=== PATIENT | male | born 1980 | race Caucasian/White ===

== ENCOUNTER → 2017-07-06 11:52 | Outpatient (REF) | payer OTHER, SELFPAY ==
[2017-07-06 13:18] LABS: Amphetamine/Metha Screen,Urine Negative ng/mL (<1000); Barbiturates Screen,Urine Negative ng/mL (<200); Benzodiazepines Screen,Urine Positive ng/mL (200); Cannabinoid Screen,Urine Negative ng/mL (<50); Cocaine Screen,Urine Negative ng/g (<300); Methadone Screen,Urine Negative ng/mL (<300); Opiate Screen,Urine Negative ng/mL (<300); Phencyclidine Screen,Urine Negative ng/mL (<25)
== END ==
LOC: LAB 11:52
PROVIDERS: Visit Provider Emergency Medicine
DX: F41.9 Anxiety disorder, unspecified (principal)
CPT/HCPCS: 80305

== ENCOUNTER → 2017-10-03 10:05 | Outpatient (REF) | payer OTHER, SELFPAY ==
[2017-10-03 20:47] LABS: Amphetamine/Metha Screen,Urine Negative ng/mL (<1000); Barbiturates Screen,Urine Negative ng/mL (<200); Benzodiazepines Screen,Urine Positive ng/mL (200); Cannabinoid Screen,Urine Negative ng/mL (<50); Cocaine Screen,Urine Negative ng/g (<300); Methadone Screen,Urine Negative ng/mL (<300); Opiate Screen,Urine Negative ng/mL (<300); Phencyclidine Screen,Urine Negative ng/mL (<25)
== END ==
LOC: LAB 10:05
PROVIDERS: Visit Provider Emergency Medicine
DX: Z79.899 Other long term (current) drug therapy (principal)
CPT/HCPCS: 80305

== ENCOUNTER → 2018-01-01 09:43 | Outpatient (REF) | payer OTHER, SELFPAY ==
[2018-01-01 14:27] LABS: Amphetamine/Metha Screen,Urine Negative ng/mL (<1000); Barbiturates Screen,Urine Negative ng/mL (<200); Benzodiazepines Screen,Urine Negative ng/mL (<200); Cannabinoid Screen,Urine Negative ng/mL (<50); Cocaine Screen,Urine Negative ng/mL (<300); Methadone Screen,Urine Negative ng/mL (<300); Opiate Screen,Urine Negative ng/mL (<300); Phencyclidine Screen,Urine Negative ng/mL (<25)
== END ==
LOC: LAB 09:43
PROVIDERS: Visit Provider Emergency Medicine
DX: Z79.899 Other long term (current) drug therapy (principal)
CPT/HCPCS: 80305

== ENCOUNTER → 2018-04-01 09:03 | Outpatient (REF) | payer OTHER, SELFPAY ==
[2018-04-01 14:42] LABS: Alanine Aminotransferase 42 U/L (12-78); Albumin/Globulin Ratio 1.2 (1.1-1.8); Alkaline Phosphatase 77 U/L (46-116); Anion Gap 15.1 mEq/L (5-15); Aspartate Amino Transferase 18 U/L (15-37); Bilirubin,Total 0.8 mg/dL (0.2-1.0); Blood Urea Nitrogen 20 mg/dL (7-18); Calcium 8.9 mg/dL (8.5-10.1); Carbon Dioxide 27 mmol/L (21.0-32.0); Chloride 103 mmol/L (98-107); Chol/HDL Ratio 5.3 (1-3.5); Cholesterol 238 mg/dL (140-200); Creatinine,Serum 0.92 mg/dL (0.70-1.30); Estimated Glomerular Filt Rate 93 ml/min (>60); Free T4 (Free Thyroxine) 0.89 ng/dl (0.76-1.46); GFR (African American) 113 ML/MIN (>60); Globulin 3.3 gm/dl (1.3-3.2); Glucose 97 mg/dL (74-106); HDL Cholesterol 45 mg/dL (27-67); Potassium 4.1 mmoL/L (3.5-5.1); Sodium 141 mmol/L (136-145); Thyroid Stimulating Hormone 3.21 uIU/ml (0.358-3.740); Total Protein,Serum 7.3 gm/dL (6.4-8.2)
[2018-04-01 14:45] LABS: Triglycerides 424 mg/dL (30-200)
[2018-04-01 14:49] LABS: Amphetamine/Metha Screen,Urine Negative ng/mL (<1000); Barbiturates Screen,Urine Negative ng/mL (<200); Benzodiazepines Screen,Urine Positive ng/mL (<200); Cannabinoid Screen,Urine Positive ng/mL (<50); Cocaine Screen,Urine Negative ng/mL (<300); Methadone Screen,Urine Negative ng/mL (<300); Opiate Screen,Urine Negative ng/mL (<300); Phencyclidine Screen,Urine Negative ng/mL (<25)
[2018-04-01 14:50] LABS: Basophils # 0.1 K/mm3 (0-0.2); Basophils % 0.5 % (0.1-2.0); Eosinophils # 0.3 K/mm3 (0.0-0.4); Eosinophils % 2.9 % (0.1-12.0); Hemoglobin 14.9 g/dL (14.1-18.0); Lymphocytes # 1.5 K/mm3 (0.7-4.5); Lymphocytes % 16.8 K/mm3 (10-50); Mean Corpuscular HGB Conc 33.1 g/dL (31.8-35.4); Mean Corpuscular Hemoglobin 29.5 pg (27.0-31.2); Mean Corpuscular Volume 89.1 fl (80-94); Mean Platelet Volume 8.8 fl (7.4-10.4); Monocytes # 0.5 K/mm3 (0.1-1.0); Monocytes % 5.9 % (1.7-9.3); Neutrophils # 6.7 K/mm3 (1.8-7.8); Neutrophils % 73.8 % (37.0-80.0); Platelet Count 216 K/mm3 (142-424); Red Blood Count 5.05 M/mm3 (4.60-6.20); Red Cell Distribution Width 13.1 % (11.5-17.5); White Blood Count 9.1 K/mm3 (4.8-10.8)
[2018-04-03 11:28] LABS: Vitamin D 25 Hydroxy 26.4 ng/mL (30.0-100.0)
== END ==
LOC: LAB 09:03
PROVIDERS: Visit Provider Emergency Medicine
DX: Z79.899 Other long term (current) drug therapy (principal); F41.9 Anxiety disorder, unspecified; R53.83 Other fatigue
CPT/HCPCS: 80053; 80061; 80305; 82652; 84439; 84443; 85025

== ENCOUNTER → 2018-07-04 13:53 | Outpatient (CLI) | payer OTHER, SELFPAY ==
[2018-07-04 14:44] LABS: Amphetamine/Metha Screen,Urine Negative ng/mL (<1000); Barbiturates Screen,Urine Negative ng/mL (<200); Benzodiazepines Screen,Urine Positive ng/mL (<200); Cannabinoid Screen,Urine Positive ng/mL (<50); Cocaine Screen,Urine Negative ng/mL (<300); Methadone Screen,Urine Negative ng/mL (<300); Opiate Screen,Urine Negative ng/mL (<300); Phencyclidine Screen,Urine Negative ng/mL (<25)
== END ==
PROVIDERS: Visit Provider Emergency Medicine
DX: Z79.899 Other long term (current) drug therapy (principal)
CPT/HCPCS: 80305

== ENCOUNTER → 2018-10-01 14:04 | Outpatient (CLI) | payer OTHER, SELFPAY ==
[2018-10-01 14:41] LABS: Amphetamine/Metha Screen,Urine Negative ng/mL (<1000); Barbiturates Screen,Urine Negative ng/mL (<200); Benzodiazepines Screen,Urine Positive ng/mL (<200); Cannabinoid Screen,Urine Positive ng/mL (<50); Cocaine Screen,Urine Negative ng/mL (<300); Methadone Screen,Urine Negative ng/mL (<300); Opiate Screen,Urine Negative ng/mL (<300); Phencyclidine Screen,Urine Negative ng/mL (<25)
== END ==
PROVIDERS: Visit Provider Emergency Medicine
DX: Z79.899 Other long term (current) drug therapy (principal)
CPT/HCPCS: 80305

== ENCOUNTER → 2018-12-27 14:25 | Outpatient (CLI) | payer OTHER, SELFPAY ==
[2018-12-27 16:41] LABS: Amphetamine/Metha Screen,Urine Negative ng/mL (<1000); Barbiturates Screen,Urine Negative ng/mL (<200); Benzodiazepines Screen,Urine Positive ng/mL (<200); Cannabinoid Screen,Urine Positive ng/mL (<50); Cocaine Screen,Urine Negative ng/mL (<300); Methadone Screen,Urine Negative ng/mL (<300); Opiate Screen,Urine Negative ng/mL (<300); Phencyclidine Screen,Urine Negative ng/mL (<25)
== END ==
PROVIDERS: Visit Provider Emergency Medicine
DX: Z79.899 Other long term (current) drug therapy (principal)
CPT/HCPCS: 80305

== ENCOUNTER → 2019-03-28 13:29 | Outpatient (CLI) | payer OTHER, SELFPAY ==
[2019-03-28 13:56] LABS: Basophils % 0.6 % (0.1-2.0); Eosinophils # 0.2 K/mm3 (0.0-0.4); Eosinophils % 3.3 % (0.1-12.0); Hematocrit 46.3 % (42.0-52.0); Hemoglobin 14.5 g/dL (14.1-18.0); Lymphocytes # 1.4 K/mm3 (0.7-4.5); Lymphocytes % 23.7 % (10-50); Mean Corpuscular HGB Conc 31.4 g/dL (31.8-35.4); Mean Corpuscular Hemoglobin 28.2 pg (27.0-31.2); Mean Corpuscular Volume 89.8 fl (80-94); Mean Platelet Volume 9.1 fl (7.4-10.4); Monocytes # 0.4 K/mm3 (0.1-1.0); Monocytes % 6.9 % (1.7-9.3); Neutrophils % 65.4 % (37.0-80.0); Platelet Count 266 K/mm3 (142-424); Red Blood Count 5.16 M/mm3 (4.60-6.20); Red Cell Distribution Width 13.6 % (11.5-17.5); White Blood Count 6.1 K/mm3 (4.8-10.8)
[2019-03-28 14:45] LABS: Alanine Aminotransferase 17 U/L (12-78); Albumin Level 4.1 gm/dL (3.4-5.0); Albumin/Globulin Ratio 1.4 (1.1-1.8); Alkaline Phosphatase 66 U/L (46-116); Aspartate Amino Transferase 14 U/L (15-37); Bilirubin,Total 0.9 mg/dL (0.2-1.0); Blood Urea Nitrogen 12 mg/dL (7-18); Calcium 8.7 mg/dL (8.5-10.1); Carbon Dioxide 24 mmol/L (21.0-32.0); Chloride 105 mmol/L (98-107); Creatinine,Serum 0.93 mg/dL (0.70-1.30); Estimated Glomerular Filt Rate 91 ml/min (>60); GFR (African American) 111 ML/MIN (>60); Glucose 101 mg/dL (74-106); Lipase 126 u/L (73-393); Sodium 141 mmol/L (136-145); Total Protein,Serum 7.1 gm/dL (6.4-8.2)
[2019-03-28 17:39] LABS: Amphetamine/Metha Screen,Urine Negative ng/mL (<1000); Barbiturates Screen,Urine Negative ng/mL (<200); Benzodiazepines Screen,Urine Positive ng/mL (<200); Cannabinoid Screen,Urine Positive ng/mL (<50); Cocaine Screen,Urine Negative ng/mL (<300); Methadone Screen,Urine Negative ng/mL (<300); Opiate Screen,Urine Negative ng/mL (<300); Phencyclidine Screen,Urine Negative ng/mL (<25)
== END ==
PROVIDERS: Visit Provider Emergency Medicine
DX: R10.9 Unspecified abdominal pain (principal); Z79.899 Other long term (current) drug therapy
CPT/HCPCS: 80053; 80305; 83690; 85025

== ENCOUNTER → 2019-04-04 07:56 | Outpatient (CLI) | payer OTHER, SELFPAY ==
--- NOTE | 2019-04-04 07:59 | US_ITS ---
PROCEDURE: US GALLBLADDER CLINICAL INDICATION: abdominal pain COMPARISON: No exams were available for comparison FINDINGS: Pancreas: Unremarkable/Not well seen Liver: Unremarkable. There is appropriate direction of blood flow within a non dilated portal vein. Right kidney: Unremarkable appearing. No hydronephrosis. Gallbladder: No stones are evident. There is no gallbladder wall thickening. Common duct is normal in diameter. IMPRESSION: Negative gallbladder ultrasound. No stones evident. Dictated by: Shahid Ramirez 04/04/2019 08:41 Electronically signed by Shahid Ramirez in [place] 04/04/2019 08:41
== END ==
PROVIDERS: PCP Emergency Medicine; Visit Provider Emergency Medicine
DX: R10.9 Unspecified abdominal pain (principal)
CPT/HCPCS: 76705

== ENCOUNTER → 2019-09-12 12:52 | Outpatient (CLI) | payer MEDICAID, SELFPAY ==
[2019-09-12 18:11] LABS: Amphetamine/Metha Screen,Urine Negative ng/ml (<1000); Barbiturates Screen,Urine Negative ng/ml (<200); Benzodiazepines Screen,Urine Positive ng/ml (<200); Cannabinoid Screen,Urine Positive ng/ml (<50); Cocaine Screen,Urine Negative ng/ml (<300); Methadone Screen,Urine Negative ng/ml (<300); Opiate Screen,Urine Negative ng/ml (<300); Phencyclidine Screen,Urine Negative ng/ml (<25)
== END ==
PROVIDERS: Visit Provider Emergency Medicine
DX: Z79.899 Other long term (current) drug therapy (principal)
CPT/HCPCS: 80305

== ENCOUNTER 2020-06-02 15:55 | Emergency (ER) | payer MEDICAID, SELFPAY ==
[2020-06-02 15:56] VITALS: BP 133/97; PULSE 64; PULSE 76; RESP 16; RESP 20; TEMP 37.2; O2SAT 97; O2SAT 99; BMI 35.8
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
[2020-06-02 16:21] VITALS: BP 133/97; PULSE 64; RESP 16; TEMP 37.2; O2SAT 97
== END 2020-06-02 16:22 | disposition home or self-care (01) ==
PROVIDERS: Emergency Provider Emergency Medicine
DX: S01.01XA Laceration without foreign body of scalp, initial encounter (principal); W20.8XXA Other cause of strike by thrown, projected or falling object, initial encounter; Y92.89 Other specified places as the place of occurrence of the external cause; F41.9 Anxiety disorder, unspecified; E78.5 Hyperlipidemia, unspecified; F17.210 Nicotine dependence, cigarettes, uncomplicated; Z79.899 Other long term (current) drug therapy; F11.11 Opioid abuse, in remission
CPT/HCPCS: 12002; 99282

== ENCOUNTER → 2020-06-22 15:05 | Outpatient (CLI) | payer MEDICAID, SELFPAY ==
[2020-06-22 16:04] LABS: Basophils # 0.1 K/mm3 (0-0.2); Basophils % 0.8 % (0.1-2.0); Eosinophils # 0.3 K/mm3 (0.0-0.4); Eosinophils % 4.1 % (0.1-12.0); Hematocrit 49.8 % (42.0-52.0); Hemoglobin 16.1 g/dL (14.1-18.0); Lymphocytes # 1.7 K/mm3 (0.7-4.5); Lymphocytes % 24.6 % (10-50); Mean Corpuscular HGB Conc 32.3 g/dL (31.8-35.4); Mean Corpuscular Hemoglobin 30.9 pg (27.0-31.2); Mean Corpuscular Volume 95.5 fl (80-94); Mean Platelet Volume 9.5 fl (7.4-10.4); Monocytes # 0.4 K/mm3 (0.1-1.0); Monocytes % 6.1 % (1.7-9.3); Neutrophils # 4.5 K/mm3 (1.8-7.8); Neutrophils % 64.4 % (37.0-80.0); Platelet Count 242 K/mm3 (142-424); Red Blood Count 5.22 M/mm3 (4.60-6.20); Red Cell Distribution Width 13.7 % (11.5-17.5); White Blood Count 7.1 K/mm3 (4.8-10.8)
[2020-06-22 16:23] LABS: Chloride 106 mmol/L (98-107); Potassium 3.8 mmoL/L (3.5-5.1); Sodium 140 mmol/L (136-145)
[2020-06-22 16:26] LABS: Alanine Aminotransferase 18 U/L (12-78); Albumin Level 4.1 g/dl (3.5-5.0); Albumin/Globulin Ratio 1.5 (1.1-1.8); Alkaline Phosphatase 65 U/L (38-126); Anion Gap 9.8 mEq/L (5-15); Aspartate Amino Transferase 25 U/L (17-59); Bilirubin,Total 0.9 mg/dl (0.2-1.3); Blood Urea Nitrogen 22 mg/dl (9-20); Calcium 9.3 mg/dl (8.4-10.2); Carbon Dioxide 28 mmol/L (22.0-30.0); Chol/HDL Ratio 2.7 (1-3.5); Cholesterol 159 mg/dl (140-200); Estimated Glomerular Filt Rate 84 ml/min (>60); GFR (African American) 101 ML/MIN (>60); Globulin 2.7 g/dL (1.3-3.2); Glucose 106 mg/dl (74-100); HDL Cholesterol 60 mg/dl (40-60); Total Protein,Serum 6.8 g/dl (6.3-8.2); Triglycerides 309 mg/dl (30-150); VLDL Cholesterol 62 mg/dL (0-40)
[2020-06-22 16:39] LABS: Direct LDL Cholesterol 49.48 mg/dL (100-129)
[2020-06-22 16:44] LABS: T4 (Thyroxine) 6.9 ug/dl (5.53-11.0)
[2020-06-22 16:57] LABS: Thyroid Stimulating Hormone 3.37 uIU/mL (0.465-4.68)
[2020-06-22 17:10] LABS: 25-OH Vitamin D, Total 26.2 ng/mL (30-100)
== END ==
PROVIDERS: Visit Provider Emergency Medicine
DX: E78.5 Hyperlipidemia, unspecified (principal); E55.9 Vitamin D deficiency, unspecified; E66.9 Obesity, unspecified; R53.83 Other fatigue
CPT/HCPCS: 80053; 80061; 82306; 84436; 84443; 85025

== ENCOUNTER → 2020-09-20 14:17 | Outpatient (CLI) | payer MEDICAID, SELFPAY ==
[2020-09-20 17:23] LABS: Amphetamine/Metha Screen,Urine Negative ng/ml (<1000)
[2020-09-20 17:24] LABS: Barbiturates Screen,Urine Negative ng/ml (<200)
[2020-09-20 17:25] LABS: Benzodiazepines Screen,Urine Positive ng/ml (<200); Cannabinoid Screen,Urine Positive ng/ml (<50)
[2020-09-20 17:26] LABS: Cocaine Screen,Urine Negative ng/ml (<300)
[2020-09-20 17:27] LABS: Methadone Screen,Urine Negative ng/ml (<300)
[2020-09-20 17:28] LABS: Opiate Screen,Urine Negative ng/ml (<300); Phencyclidine Screen,Urine Negative ng/ml (<25)
== END ==
PROVIDERS: Visit Provider Emergency Medicine
DX: Z79.899 Other long term (current) drug therapy (principal)
CPT/HCPCS: 80305

== ENCOUNTER → 2020-12-13 13:56 | Outpatient (CLI) | payer MEDICAID, SELFPAY ==
[2020-12-13 15:27] LABS: Amphetamine/Metha Screen,Urine Negative ng/ml (<1000)
[2020-12-13 15:28] LABS: Barbiturates Screen,Urine Negative ng/ml (<200); Benzodiazepines Screen,Urine Positive ng/ml (<200)
[2020-12-13 15:29] LABS: Cannabinoid Screen,Urine Positive ng/ml (<50); Cocaine Screen,Urine Negative ng/ml (<300)
[2020-12-13 15:30] LABS: Methadone Screen,Urine Negative ng/ml (<300)
[2020-12-13 15:31] LABS: Opiate Screen,Urine Negative ng/ml (<300); Phencyclidine Screen,Urine Negative ng/ml (<25)
== END ==
PROVIDERS: Visit Provider Emergency Medicine
DX: Z79.899 Other long term (current) drug therapy (principal)
CPT/HCPCS: 80305

== ENCOUNTER → 2021-03-14 18:20 | Outpatient (CLI) | payer MEDICAID, SELFPAY ==
[2021-03-14 18:52] LABS: Alanine Aminotransferase 17 U/L (12-78); Albumin Level 4.2 g/dl (3.5-5.0); Albumin/Globulin Ratio 1.6 (1.1-1.8); Alkaline Phosphatase 73 U/L (38-126); Anion Gap 15.3 mEq/L (5-15); Aspartate Amino Transferase 23 U/L (17-59); Bilirubin,Total 0.5 mg/dl (0.2-1.3); Blood Urea Nitrogen 15 mg/dl (9-20); Calcium 9.1 mg/dl (8.4-10.2); Carbon Dioxide 27 mmol/L (22.0-30.0); Chloride 105 mmol/L (98-107); Chol/HDL Ratio 3.9 (1-3.5); Cholesterol 177 mg/dl (140-200); Estimated Glomerular Filt Rate 94 ml/min (>60); GFR (African American) 114 ML/MIN (>60); Globulin 2.6 g/dL (1.3-3.2); Glucose 120 mg/dl (74-100); HDL Cholesterol 45 mg/dl (40-60); Potassium 4.3 mmoL/L (3.5-5.1); Sodium 143 mmol/L (136-145); Total Protein,Serum 6.8 g/dl (6.3-8.2); Triglycerides 281 mg/dl (30-150); VLDL Cholesterol 56 mg/dL (0-40)
[2021-03-14 19:04] LABS: Direct LDL Cholesterol 78.09 mg/dL (100-129)
[2021-03-14 19:05] LABS: Basophils % 0.6 % (0.1-2.0); Eosinophils # 0.2 K/mm3 (0.0-0.4); Eosinophils % 3.8 % (0.1-12.0); Hematocrit 42.5 % (42.0-52.0); Hemoglobin 13.6 g/dL (14.1-18.0); Lymphocytes # 1.3 K/mm3 (0.7-4.5); Lymphocytes % 25.3 % (10-50); Mean Corpuscular HGB Conc 32.1 g/dL (31.8-35.4); Mean Corpuscular Hemoglobin 31.8 pg (27.0-31.2); Mean Corpuscular Volume 99.3 fl (80-94); Mean Platelet Volume 9.4 fl (7.4-10.4); Monocytes # 0.3 K/mm3 (0.1-1.0); Monocytes % 5.8 % (1.7-9.3); Neutrophils # 3.2 K/mm3 (1.8-7.8); Neutrophils % 64.4 % (37.0-80.0); Platelet Count 257 K/mm3 (142-424); Red Blood Count 4.28 M/mm3 (4.60-6.20); Red Cell Distribution Width 12.9 % (11.5-17.5)
[2021-03-14 19:09] LABS: 25-OH Vitamin D, Total 31.8 ng/mL (30-100)
[2021-03-14 19:11] LABS: Free T4 (Free Thyroxine) 1.14 ng/dl (0.78-2.19)
[2021-03-14 19:24] LABS: Thyroid Stimulating Hormone 1.87 uIU/mL (0.465-4.68)
[2021-03-14 19:28] LABS: Amphetamine/Metha Screen,Urine Negative ng/ml (<1000)
[2021-03-14 19:29] LABS: Barbiturates Screen,Urine Negative ng/ml (<200)
[2021-03-14 19:30] LABS: Benzodiazepines Screen,Urine Positive ng/ml (<200); Cannabinoid Screen,Urine Positive ng/ml (<50)
[2021-03-14 19:31] LABS: Cocaine Screen,Urine Negative ng/ml (<300)
[2021-03-14 19:32] LABS: Methadone Screen,Urine Negative ng/ml (<300); Opiate Screen,Urine Negative ng/ml (<300)
[2021-03-14 19:40] LABS: Phencyclidine Screen,Urine Negative ng/ml (<25)
[2021-03-16 06:30] LABS: Hep A Ab, IgM Negative (Negative); Hepatitis B Core Antibody IgM Negative (Negative); Hepatitis B Surface Antigen Negative (Negative); Hepatitis C Antibody <0.1 s/co ratio (0.0-0.9)
== END ==
PROVIDERS: Visit Provider Physician Assistant
DX: R53.83 Other fatigue (principal); F41.9 Anxiety disorder, unspecified; Z68.32 Body mass index [BMI] 32.0-32.9, adult; Z79.899 Other long term (current) drug therapy; Z29.9 Encounter for prophylactic measures, unspecified
CPT/HCPCS: 80053; 80061; 80074; 80305; 82306; 84439; 84443; 85025

== ENCOUNTER → 2021-05-11 16:25 | Outpatient (CLI) | payer MEDICAID, SELFPAY ==
[2021-05-11 16:56] LABS: Amphetamine/Metha Screen,Urine Negative ng/ml (<1000)
[2021-05-11 16:57] LABS: Barbiturates Screen,Urine Negative ng/ml (<200)
[2021-05-11 16:58] LABS: Benzodiazepines Screen,Urine Positive ng/ml (<200); Cannabinoid Screen,Urine Positive ng/ml (<50)
[2021-05-11 16:59] LABS: Cocaine Screen,Urine Negative ng/ml (<300)
[2021-05-11 17:00] LABS: Methadone Screen,Urine Negative ng/ml (<300); Opiate Screen,Urine Negative ng/ml (<300)
[2021-05-11 17:01] LABS: Phencyclidine Screen,Urine Negative ng/ml (<25)
== END ==
PROVIDERS: Visit Provider Emergency Medicine
DX: Z79.899 Other long term (current) drug therapy (principal)
CPT/HCPCS: 80305

== ENCOUNTER → 2021-08-10 16:00 | Outpatient (CLI) | payer MEDICAID, SELFPAY ==
[2021-08-10 15:23] LABS: Amphetamine/Metha Screen,Urine Negative ng/ml (<1000)
[2021-08-10 15:30] LABS: Barbiturates Screen,Urine Negative ng/ml (<200); Benzodiazepines Screen,Urine Positive ng/ml (<200)
[2021-08-10 15:31] LABS: Cannabinoid Screen,Urine Positive ng/ml (<50); Cocaine Screen,Urine Negative ng/ml (<300)
[2021-08-10 15:32] LABS: Methadone Screen,Urine Negative ng/ml (<300)
[2021-08-10 15:33] LABS: Opiate Screen,Urine Negative ng/ml (<300); Phencyclidine Screen,Urine Negative ng/ml (<25)
== END ==
PROVIDERS: Visit Provider Emergency Medicine
DX: Z79.899 Other long term (current) drug therapy (principal)
CPT/HCPCS: 80305

== ENCOUNTER → 2021-11-01 22:07 | Outpatient (CLI) | payer MEDICAID, SELFPAY ==
[2021-11-01 14:16] LABS: Amphetamine/Metha Screen,Urine Negative ng/ml (<1000)
[2021-11-01 14:17] LABS: Barbiturates Screen,Urine Negative ng/ml (<200)
[2021-11-01 14:18] LABS: Benzodiazepines Screen,Urine Positive ng/ml (<200)
[2021-11-01 14:19] LABS: Cannabinoid Screen,Urine Positive ng/ml (<50)
[2021-11-01 14:20] LABS: Cocaine Screen,Urine Negative ng/ml (<300)
[2021-11-01 14:21] LABS: Methadone Screen,Urine Negative ng/ml (<300); Opiate Screen,Urine Negative ng/ml (<300)
[2021-11-01 14:23] LABS: Phencyclidine Screen,Urine Negative ng/ml (<25)
== END ==
PROVIDERS: Visit Provider Emergency Medicine
DX: Z79.899 Other long term (current) drug therapy (principal)
CPT/HCPCS: 80305

== ENCOUNTER → 2021-11-15 10:53 | Outpatient (CLI) | payer MEDICAID, SELFPAY | PROVIDERS: PCP Emergency Medicine; Visit Provider Emergency Medicine | DX: R07.9 Chest pain, unspecified (principal) | CPT/HCPCS: 93306 ==

== ENCOUNTER → 2022-05-24 09:33 | Outpatient (CLI) | payer MEDICAID, SELFPAY ==
[2022-05-24 14:31] LABS: Amphetamine/Metha Screen,Urine Negative ng/ml (<1000)
[2022-05-24 14:32] LABS: Barbiturates Screen,Urine Negative ng/ml (<200)
[2022-05-24 14:33] LABS: Benzodiazepines Screen,Urine Positive ng/ml (<200); Cannabinoid Screen,Urine Positive ng/ml (<50)
[2022-05-24 14:34] LABS: Cocaine Screen,Urine Negative ng/ml (<300); Methadone Screen,Urine Negative ng/ml (<300)
[2022-05-24 14:35] LABS: Opiate Screen,Urine Negative ng/ml (<300)
[2022-05-24 14:36] LABS: Phencyclidine Screen,Urine Negative ng/ml (<25)
== END ==
PROVIDERS: PCP Emergency Medicine; Visit Provider Emergency Medicine
DX: F41.9 Anxiety disorder, unspecified (principal)
CPT/HCPCS: 80305

== ENCOUNTER → 2022-12-04 17:07 | Outpatient (CLI) | payer MEDICAID, SELFPAY ==
--- NOTE | 2022-12-04 17:08 | MR_ITS ---
PROCEDURE INFORMATION: Exam: MR Right Lower Extremity Joint Without Contrast; Ankle Exam date and time: 12/04/2022 5:31 PM Age: 42 years old Clinical indication: Pain; Ankle; Right; Additional info: Ankle pain. Pain worse on lateral side. TECHNIQUE: Imaging protocol: Magnetic resonance imaging of the right lower extremity without contrast. Exam focused on the ankle. COMPARISON: No relevant prior studies available. FINDINGS: Bones/joints: A focus of full-thickness cartilage loss involving the anterior mid tibial plafond measures approximately 0.4 x 0.4 cm and is associated with subchondral edema. A moderate amount of fluid is also present in the flexor hallucis longus tendon sheath proximal to the level of the posterior process of the talus with an appearance indeterminate for impingement. No tear. Minimal fluid is present in the ankle and subtalar joints. Full-thickness cartilage loss also involves an 8 mm region of the subtalar joint posterior facet along the calcaneal side of the joint near the angle of Gissane (series 9/image 16). Tiny subchondral cysts along the posteromedial aspect of the subtalar joint suggest additional foci of full-thickness cartilage loss that are beyond the resolution of the study. Increased T2 signal within the posterior calcaneal tuberosity superiorly and in the immediately adjacent soft tissues is seen on series 6 insular series 9 but cannot be definitively confirmed on additional sequences being indeterminate for inflammation in this region versus artifact. There is no convincing corresponding abnormal signal on T1 weighted sequences for confirmation. There is no acute fracture or dislocation. No aggressive bone lesions are present. Small, chronic-appearing osteochondral bodies adjacent to the medial and lateral malleoli are consistent with remote unhealed avulsion fracture fragments and/or small foci of heterotopic ossification. LIGAMENTS: Distal tibiofibular syndesmosis: Unremarkable. No tear. Anterior talofibular ligament: The anterior talofibular ligament is not visible, consistent with a full thickness tear. Posterior talofibular ligament: The posterior talofibular ligament is thickened and has intermediate signal intensity, consistent with prior low grade injury. Calcaneofibular ligament: The calcaneofibular ligament is thin, consistent with an intermediate grade partial thickness tear. Deltoid ligament complex: Heterogeneity of the deep deltoid ligament complex is consistent with prior low to intermediate-grade partial-thickness tearing. The superficial component of the deltoid ligament is intact. TENDONS: Flexor tendons of foot: A moderate amount of fluid is present at the Master knot of Alist[place] where the flexor hallucis longus tendon crosses the flexor digitorum longus tendon. Tibialis posterior tendon: Mild tenosynovitis involves the tibialis posterior tendon. Peroneal tendons: Unremarkable as visualized. Extensor tendons of foot: Unremarkable as visualized. Tibialis anterior tendon: Unremarkable. Achilles tendon: There is no tear or significant tendinosis involving the Achilles tendon. Tarsal canal (Sinus tarsi): Abnormal signal intensity material nearly obliterates the fat in the sinus tarsi. The cervical ligament is poorly defined and may be partially torn. The appearance suggests sinus tarsi syndrome. A small ganglion or synovial cyst decompresses laterally from the sinus tarsi region. Tarsal tunnel: Unremarkable. Soft tissues: A trace amount of fluid is present in the retrocalcaneal bursa. Plantar fascia: Mild thickening of the central band of the proximal plantar fascia has no signif
== END ==
PROVIDERS: PCP Emergency Medicine; Visit Provider Emergency Medicine
DX: M25.571 Pain in right ankle and joints of right foot (principal)
CPT/HCPCS: 73721

== ENCOUNTER 2023-01-22 20:21 | Emergency (ER) | payer MEDICAID, SELFPAY ==
[2023-01-22 20:22] VITALS: BP 135/67; PULSE 89; RESP 19; TEMP 36.8; O2SAT 97; BMI 29.2
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
[2023-01-22 21:27] VITALS: BP 148/62; PULSE 68; RESP 19; TEMP 36.8; O2SAT 98
== END 2023-01-22 21:27 | disposition home or self-care (01) ==
PROVIDERS: Emergency Provider Emergency Medicine; PCP Emergency Medicine
DX: S81.812A Laceration without foreign body, left lower leg, initial encounter (principal); F41.9 Anxiety disorder, unspecified; W26.0XXA Contact with knife, initial encounter
CPT/HCPCS: 12002; 90715; 96372; 99283

== ENCOUNTER 2023-02-09 09:30 | Outpatient (RCR) | payer MEDICAID, SELFPAY ==
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
== END 2023-02-09 10:45 | disposition home or self-care (01) ==
LOC: PT 09:30
PROVIDERS: Visit Provider Nurse Practitioner Family
DX: M25.571 Pain in right ankle and joints of right foot (principal); T25.011A Burn of unspecified degree of right ankle, initial encounter
CPT/HCPCS: 97163; 97597; 97598

== ENCOUNTER 2023-03-18 18:05 | Emergency (ER) | payer MEDICAID, SELFPAY ==
[2023-03-18 18:06] VITALS: BP 127/80; PULSE 54; RESP 18; TEMP 37; O2SAT 99; BMI 28.4
[2023-03-18 18:30] VITALS: BP 130/79; PULSE 52; RESP 16; O2SAT 99
--- NOTE | 2023-03-18 18:44 | CT_ITS ---
PROCEDURE INFORMATION: Exam: CT Head Without Contrast Exam date and time: 03/18/2023 6:54 PM Age: 43 years old Clinical indication: Pain; Headache; Additional info: VYAS TECHNIQUE: Imaging protocol: Computed tomography of the head without contrast. Radiation optimization: All CT scans at this facility use at least one of these dose optimization techniques: automated exposure control; mA and/or kV adjustment per patient size (includes targeted exams where dose is matched to clinical indication); or iterative reconstruction. REPORTING DATA: Count of CT and Cardiac NM exams in prior 12 months: This patient has received 0 known CTs and 0 known cardiac nuclear medicine studies in the 12 months prior to the current study. COMPARISON: No relevant prior studies available. FINDINGS: Brain: Normal. No hemorrhage. Unremarkable white matter. No mass effect. Cerebral ventricles: No ventriculomegaly. Paranasal sinuses: Visualized sinuses are unremarkable. No fluid levels. Mastoid air cells: Visualized mastoid air cells are well aerated. Bones/joints: Unremarkable. No acute fracture. Soft tissues: Unremarkable. IMPRESSION: No acute intracranial abnormality.
--- NOTE | 2023-03-18 18:45 | HMH.EDGENADL ---
Discharge Plan Disposition Patient Disposition: Home, Self-Care Prescriptions Prescriptions: No Action alprazolam 1 mg tablet 1 mg PO 5XDAY Qty: 150 2RF silver sulfadiazine [Silvadene] 1 % cream 1 applic topical BID Qty: 50 2RF Rx Instructions: apply a 1.5 mm thickness ondansetron HCl 4 mg tablet See Rx Instructions .ROUTE .COMPLEX Qty: 30 3RF Dose Instruction: TAKE ONE TABLET BY MOUTH EVERY 8 HOURS NEEDED FOR NAUSEA AND VOMITING Rx Instructions: TAKE ONE TABLET BY MOUTH EVERY 8 HOURS NEEDED FOR NAUSEA AND VOMITING Referrals Follow up/Referrals: Lester Joradn MD [Primary Care Provider] - See instructions Activity Restrictions/Add. Instructions Additional Instructions/Restrictions: No neurovascular emergency was identified today please return with any focal neurologic symptoms such as weakness changes in coordination vision high fevers neck stiffness or other concerns. Your CAT scan was unremarkable today. Clinical Impressions Clinical Impression: Headache, Minor head injury Discharge ED Provider: Michael Thomas General Adult HPI General Chief complaint: Headache Stated complaint: VYAS, weak Time Seen by Provider: 03/18/23 18:36 Mode of Arrival: Wheelchair Source of Information: Patient Limitations: No Limitations Description of Symptoms (Recalled from ER Triage Doc. by RN): Presents to ED with c/o of headache x 2 days along with shakiness and weakness. Patient reports taking Excedrin @ 1500, ibuprofen @ 1700, and 2 5mg Xanax's today with no relief. Patient reports taking saboxone as well. Patient states he has not been able to eat a whole lot lately. History of Present Illness HPI narrative: Patient is a 43-year-old male here with headache that began Sunday has been slowly worsening since that time no thunderclap component to this no fever neck stiffness or any neurologic complaints. States he did get hit in the face by a pit bull but he had symptoms of pain that started several hours after that. No other trauma that he is aware of. Has not changed any of his benzodiazepine Suboxone or alcohol consumption lately. Denies any focal neurologic deficits including numbness weakness tingling changes in coordination or vision. He does have a little bit of photophobia. Related Data Previous Rx's Medication Instructions Recorded silver sulfadiazine 1 % topical 1 applic topical BID #50 grams 01/23/23 cream (Silvadene) alprazolam 1 mg tablet 1 mg PO 5XDAY anxiety #150 tabs 02/06/23 ondansetron HCl 4 mg tablet See Rx Instructions .Route 03/06/23 .COMPLEX #30 tabs Allergies Allergy/AdvReac Type Severity Reaction Status Date / Time No Known Allergies Allergy Verified 03/18/23 19:27 [facility] Disclaimer: The information contained in this section may have been updated after the patient was seen, as this information can be updated by other users. Medical History Anxiety Frederick reviewed online Social History Smoking Status: Current every day smoker tobacco type: cigarettes packs per day: 1 alcohol intake: never substance use type: former substance user, marijuana, heroin and opiates current occupational status: other Travel in the last 8 weeks: None household members: family housing: house ROS Obtained: Yes All systems reviewed & no additional complaints except as documented Physical Exam General General appearance: alert Head Head exam: normocephalic (No vieira sign raccoon eyes hemotympanums or depressible fracture) Respiratory Respiratory exam: Present normal lung sounds bilaterally; Absent respiratory distress Cardiovascular Cardiovascular exam: Present regular rate; Absent tachycardia Neurological Exam Neurological exam: Present alert, oriented X3, CN II-XII intact and normal gait; Absent motor sensory deficit Expanded Neurolog
[2023-03-18 20:26] VITALS: BP 127/71; PULSE 49; RESP 18; TEMP 37; O2SAT 100
== END 2023-03-18 20:28 | disposition home or self-care (01) ==
PROVIDERS: Emergency Provider Student in an Organized Health Care Education/Training Program; PCP Emergency Medicine
DX: R51.9 Headache, unspecified (principal); S09.8XXA Other specified injuries of head, initial encounter; R53.1 Weakness; W54.1XXA Struck by dog, initial encounter; F41.9 Anxiety disorder, unspecified; F17.210 Nicotine dependence, cigarettes, uncomplicated
CPT/HCPCS: 70450; 96361; 96374; 96375; 99284; J0131

== ENCOUNTER 2023-07-31 12:52 | Outpatient (CLI) | payer MEDICAID, SELFPAY ==
[2023-07-31 12:59] LABS: Basophils % 0.5 % (0.1-2.0); Eosinophils # 0.1 K/mm3 (0.0-0.4); Hematocrit 36.5 % (42.0-52.0); Hemoglobin 14.8 g/dL (14.1-18.0); Lymphocytes # 0.9 K/mm3 (0.7-4.5); Lymphocytes % 15.3 % (10-50); Mean Corpuscular Hemoglobin 39.7 pg (27.0-31.2); Mean Corpuscular Volume 97.6 fl (80-94); Mean Platelet Volume 9.3 fl (7.4-10.4); Monocytes # 0.3 K/mm3 (0.1-1.0); Monocytes % 5.4 % (1.7-9.3); Neutrophils # 4.6 K/mm3 (1.8-7.8); Platelet Count 219 K/mm3 (142-424); Red Blood Count 3.74 M/mm3 (4.60-6.20); Red Cell Distribution Width 13.5 % (11.5-17.5); White Blood Count 5.9 K/mm3 (4.8-10.8)
[2023-07-31 13:02] LABS: Mean Corpuscular HGB Conc 40.7 g/dL (31.8-35.4)
[2023-07-31 13:07] LABS: Alanine Aminotransferase 29 U/L (12-78); Albumin Level 4.3 g/dl (3.5-5.0); Albumin/Globulin Ratio 1.8 (1.1-1.8); Alkaline Phosphatase 119 U/L (38-126); Aspartate Amino Transferase 60 U/L (17-59); Bilirubin,Total 1.8 mg/dl (0.2-1.3); Blood Urea Nitrogen 11 mg/dl (9-20); Calcium 9.2 mg/dl (8.4-10.2); Carbon Dioxide 24 mmol/L (22.0-30.0); Chloride 106 mmol/L (98-107); Cholesterol 205 mg/dl (140-200); Estimated Glomerular Filt Rate 107 ml/min (>60); GFR (African American) 129 ML/MIN (>60); Globulin 2.4 g/dL (1.3-3.2); Glucose 71 mg/dl (74-100); Sodium 140 mmol/L (136-145); Total Protein,Serum 6.7 g/dl (6.3-8.2); Triglycerides 153 mg/dl (30-150); VLDL Cholesterol 31 mg/dL (0-40)
[2023-07-31 13:15] LABS: Chol/HDL Ratio 2.1 (1-3.5); HDL Cholesterol 97 mg/dl (40-60)
[2023-07-31 13:18] LABS: Direct LDL Cholesterol 80.62 mg/dL (100-129)
[2023-07-31 13:34] LABS: 25-OH Vitamin D, Total < 12.8 ng/mL (30-100)
[2023-07-31 13:39] LABS: Prostate Specific Ag Screen 0.2 ng/ml (0.0-4.0)
[2023-08-01 10:03] LABS: HBsAg Screen Negative (Negative); HCV Ab Non Reactive (Non Reactive); Hep A Ab, IGM Negative (Negative); Hep B Core Ab, IgM Negative (Negative)
[2023-08-01 12:44] LABS: HIV Screen 4th Generation wRfx Non Reactive (Non Reactive)
== END 2023-07-31 23:59 ==
LOC: LAB.DROPOF 12:52
PROVIDERS: PCP Internal Medicine; Visit Provider Internal Medicine
DX: F19.11 Other psychoactive substance abuse, in remission (principal); F43.10 Post-traumatic stress disorder, unspecified; F41.9 Anxiety disorder, unspecified; F32.9 Major depressive disorder, single episode, unspecified; E55.9 Vitamin D deficiency, unspecified; E78.5 Hyperlipidemia, unspecified; R53.83 Other fatigue; Z12.5 Encounter for screening for malignant neoplasm of prostate; Z11.4 Encounter for screening for human immunodeficiency virus [HIV]; Z79.899 Other long term (current) drug therapy
CPT/HCPCS: 80053; 80061; 80074; 82306; 84443; 85025; 86703; G0103; G0432

== ENCOUNTER 2023-08-13 08:34 | Outpatient (CLI) | payer MEDICAID, SELFPAY ==
[2023-08-13 11:25] LABS: Vitamin B12 238 pg/mL (239-931)
== END 2023-08-13 23:59 ==
LOC: LAB 08:35
PROVIDERS: PCP Internal Medicine; Visit Provider Internal Medicine
DX: D51.0 Vitamin B12 deficiency anemia due to intrinsic factor deficiency (principal)
CPT/HCPCS: 36415; 82607

== ENCOUNTER 2023-08-15 12:01 | Emergency (ER) | payer MEDICAID, SELFPAY ==
--- NOTE | 2023-08-15 11:59 | ECG_ITS ---
APPROVED REPORT Exam: Resting ECG HR:82 bpm ECG Measurements Heart Rate 82 AXES WY 124 P 26 QRSd 101 QRS 72 QT 364 T 26 QTc 403 Conclusion SINUS RHYTHM NORMAL ECG UNCONFIRMED REPORT Electronically signed by : Gurjit Onofre MD 08/15/2023 20:57:25
[2023-08-15 12:01] VITALS: BP 115/59; PULSE 80; RESP 15; TEMP 37.2; O2SAT 97; BMI 27.2
[2023-08-15 12:08] VITALS: PULSE 82
[2023-08-15 12:08] LABS: Coronavirus 19, PCR Not Detected (NotDetected); Influenza A, PCR Not Detected (NotDetected)
--- NOTE | 2023-08-15 12:08 | XR_ITS ---
FINAL REPORT CLINICAL HISTORY: cp chest congestion, body aches, heavy breathing. symptoms ongoing since sunday. FINDINGS: SINGLE-VIEW CHEST The heart size is normal. The mediastinum is normal. The lungs are clear. There is no pneumothorax. IMPRESSION: No acute cardiopulmonary process. Reviewed, Interpreted and Dictated by Mp Quevedo III, MD Transcribed by Arina Owens Authenticated and [facility]
--- NOTE | 2023-08-15 12:11 | PC.NURSE ---
DR CHENEY AT BEDSIDE
--- NOTE | 2023-08-15 12:14 | PC.NURSE ---
XR AT BEDSIDE
[2023-08-15 12:15] LABS: Basophils % 0.4 % (0.1-2.0); Eosinophils # 0.1 K/mm3 (0.0-0.4); Eosinophils % 0.9 % (0.1-12.0); Hematocrit 46.1 % (42.0-52.0); Lymphocytes # 0.8 K/mm3 (0.7-4.5); Lymphocytes % 14.5 % (10-50); Mean Corpuscular HGB Conc 34.6 g/dL (31.8-35.4); Mean Corpuscular Hemoglobin 32.3 pg (27.0-31.2); Mean Corpuscular Volume 93.3 fl (80-94); Mean Platelet Volume 8.9 fl (7.4-10.4); Monocytes # 0.3 K/mm3 (0.1-1.0); Monocytes % 6.1 % (1.7-9.3); Neutrophils # 4.4 K/mm3 (1.8-7.8); Platelet Count 122 K/mm3 (142-424); Red Blood Count 4.94 M/mm3 (4.60-6.20); Red Cell Distribution Width 13.1 % (11.5-17.5); White Blood Count 5.6 K/mm3 (4.8-10.8)
--- NOTE | 2023-08-15 12:20 | ED_ITS ---
Discharge Plan Disposition Patient Disposition: Home, Self-Care Condition: Good Prescriptions Prescriptions: New ondansetron 4 mg tablet,disintegrating 4 mg PO Q6 PRN (Reason: nausea and vomiting) 4 Days Qty: 16 0RF No Action cholecalciferol (vitamin D3) 125 mcg (5,000 unit) capsule 125 mcg PO DAILY 60 Days Qty: 60 3RF vitamin B complex [B Complex-Vitamin B12] Tablet 1 tab PO DAILY Qty: 30 2RF amitriptyline 25 mg tablet 25 mg PO HS 30 Days Qty: 30 2RF alprazolam 1 mg tablet 1 mg PO 5XDAY PRN (Reason: anxiety) Qty: 150 1RF ondansetron HCl 4 mg tablet See Rx Instructions .ROUTE .COMPLEX Qty: 30 2RF Dose Instruction: TAKE ONE TABLET BY MOUTH EVERY 8 HOURS NEEDED FOR NAUSEA AND VOMITING Rx Instructions: TAKE ONE TABLET BY MOUTH EVERY 8 HOURS NEEDED FOR NAUSEA AND VOMITING mecobalamin (vitamin B12) 5,000 mcg tablet,chewable 5,000 mcg PO DAILY 90 Days Qty: 90 4RF Referrals Follow up/Referrals: Provider,Referral, MD [Referring] - See instructions Activity Restrictions/Add. Instructions Additional Instructions/Restrictions: You have been evaluated in the ED for your complaints. You may follow-up with your PCP in the next 3 to 5 days. Please return to ED for any new or worsening symptoms. Please continue to treat your symptoms at home with Tylenol and Motrin as needed. I have also written for Zofran to assist with your nausea. Please drink plenty of fluids. Clinical Impressions Clinical Impression: Influenza B, Chest pain, Shortness of breath, Diarrhea Discharge ED Provider: Hal Mata General Adult HPI General Chief complaint: Chest Pain Stated complaint: cp Time Seen by Provider: 08/15/23 12:06 Mode of Arrival: Ambulatory Source of Information: Patient Limitations: No Limitations Description of Symptoms (Recalled from ER Triage Doc. by RN): pt presents to ED with c/o chest congestion, body aches, heavy breathing. symptoms ongoing since sunday. History of Present Illness HPI narrative: 43-year-old male with past medical history significant for anemia, PTSD, HLD, depression, anxiety, presents today for evaluation concerning central chest pain with associated shortness of breath that has been present over the past 2 days intermittently. States he has also had a significant nonproductive cough as well as subjective fevers. Has also had N/V and nonbloody diarrhea as well as myalgias. Reports decreased p.o. intake. Denies any abdominal pain, dysuria, hematuria. No further complaints. Related Data Previous Rx's Medication Instructions Recorded vitamin B complex (B 1 tab PO DAILY #30 tabs 05/04/23 Complex-Vitamin B12 tablet) alprazolam 1 mg tablet 1 mg PO 5XDAY PRN anxiety #150 tabs 07/31/23 amitriptyline 25 mg tablet 25 mg PO HS 30 days #30 tabs 07/31/23 cholecalciferol (vitamin D3) 125 125 mcg PO DAILY 60 days #60 caps 08/03/23 mcg (5,000 unit) capsule ondansetron HCl 4 mg tablet See Rx Instructions .Route 08/07/23 .COMPLEX #30 tabs mecobalamin (vitamin B12) 5,000 5,000 mcg PO DAILY 90 days #90 tabs 08/14/23 mcg chewable tablet ondansetron 4 mg disintegrating 4 mg PO Q6 PRN nausea and vomiting 08/15/23 tablet 4 days #16 tabs Allergies Allergy/AdvReac Type Severity Reaction Status Date / Time No Known Allergies Allergy Verified 07/31/23 09:18 [facility] Disclaimer: The information contained in this section may have been updated after the patient was seen, as this information can be updated by other users. Medical History Anxiety Frederick reviewed online Social History Smoking Status: Current every day smoker tobacco type: cigarettes packs per day: 1 alcohol intake: never substance use type: former substance user, marijuana, heroin and opiates current occupational status: other Travel in the last 8 weeks: None household members: family housing: house ROS Obtained: Yes All systems reviewed & no additional complaints except as documented Physical Exam General General appearance: alert and in no apparent distress Head Head exam: atraumatic and normocephalic Eye Eye exam: Present normal appearance, PERRL and EOMI ENT ENT exam: Present normal oropharynx and mucous membranes moist Neck Neck exam: Present full ROM; Absent meningismus Respiratory Respiratory exam: Absent respiratory distress, wheezes, stridor or accessory muscle use Cardiovascular Cardiovascular exam: Present normal rhythm Abdominal Exam Abdominal exam: Present soft; Absent distention, tenderness, guarding, rebound or rigidity Extremities Exam Extremities exam: Present normal inspection and full ROM; Absent edema Neurological Exam Neurological exam: Present alert, oriented X3 and CN II-XII intact; Absent motor sensory deficit Psychiatric Psychiatric exam: Present normal affect and normal mood Skin Skin exam: Present warm and dry Medical Decision Making Medical Records Medical records reviewed: Yes I reviewed the patient's medical records. Frederick Inquiry Pt receiving controlled substance: No Frederick was queried for this patient: No Vital Signs: 08/15/23 12:01 08/15/23 12:08 08/15/23 13:00 Temperature 99.0 F Temperature Source Oral Pulse Rate 82 63 Pulse Rate [Left Radial] 80 Respiratory Rate 15 Blood Pressure 125/72 Blood Pressure [Right Arm] 115/59 L Blood Pressure Mean 81 Blood Pressure Mean [Right Arm] 77 02 Sat by Pulse Oximetry 97 93 L Oxygen Delivery Method Room Air Room Air 08/15/23 13:30 08/15/23 14:01 08/15/23 14:26 Temperature 98.0 F Temperature Source Pulse Rate 70 76 62 Pulse Rate [Left Radial] Respiratory Rate 16 Blood Pressure 121/70 119/77 119/77 Blood Pressure [Right Arm] Blood Pressure Mean Blood Pressure Mean [Right Arm] 02 Sat by Pulse Oximetry 94 L 90 L Oxygen Delivery Method Room Air Room Air Lab Data Lab Results 08/15/23 12:00: WBC 5.6, RBC 4.94, Hgb 16.0, Hct 46.1, MCV 93.3, MCH 32.3 H, MCHC 34.6, RDW 13.1, Plt Count 122 L, MPV 8.9, Neut % (Auto) 78.0, Lymph % (Auto) 14.5, Shannon % (Auto) 6.1, Eos % (Auto) 0.9, Baso % (Auto) 0.4, Neut # (Auto) 4.4, Lymph # (Auto) 0.8, Shannon # (Auto) 0.3, Eos # (Auto) 0.1, Baso # (Auto) 0.0, Sodium 136, Potassium 3.8, Chloride 98, Carbon Dioxide 35 H, Anion Gap 6.8, BUN 8 L, Creatinine 0.90, Estimated Creat Clear 159, Estimated GFR 93, Est GFR ( Amer) 113, Glucose 118 H, Calcium 8.7, Total Bilirubin 0.5, AST 60 H, ALT 39, Alkaline Phosphatase 103, Troponin I < 0.01, Total Protein 7.1, Albumin 4.2, Globulin 2.9, Albumin/Globulin Ratio 1.4, SARS-CoV-2 (PCR) Not detected, Influenza A Untype (PCR) Not detected, Influenza Type B (PCR) Detected A 08/15/23 12:00 08/15/23 12:00 Orders (Tests/Meds): ED MEDICATIONS Discontinued Medications Generic Name Dose Route Start Last Admin Trade Name Freq PRN Reason Stop Dose Admin Lactated Ringer's 500 mls @ 999 mls/hr 08/15/23 12:21 08/15/23 12:28 Lactated Ringer's 1000 Ml Bag IV 08/15/23 12:51 999 mls/hr .Q31M ONE Administration Ketorolac Tromethamine 15 mg 08/15/23 12:21 08/15/23 12:28 Ketorolac 30mg/Ml Vial IM 08/15/23 12:22 15 mg ONCE ONE Administration Ondansetron HCl 4 mg 08/15/23 12:21 08/15/23 12:28 Ondansetron 4mg Odt SL 08/15/23 12:22 4 mg ONCE ONE Administration Sodium Chloride 10 ml 08/15/23 12:08 Sodium Chloride 0.9% 10ml Flush Syringe IV 09/14/23 12:07 NEEDED PRN Maintain IV Site ORDERS Category Date Time Status XR chest portable Stat Exams 08/15/23 12:08 Completed Complete Blood Count Auto Diff Stat Lab 08/15/23 12:00 Completed Comprehensive Metabolic Panel Stat Lab 08/15/23 12:00 Completed Rapid PCR Covid and Flu A/B Stat Lab 08/15/23 12:00 Completed Troponin I Stat Lab 08/15/23 12:00 Completed ECG initial Besson Routine Y 08/15/23 11:59 Completed ECG Data Tracing #1: I reviewed this ECG and interpreted as documented below: EKG personally interpreted by me. Normal sinus rhythm with a rate of [address] elevations are noted. Medical Decision Narrative: 43-year-old male with past medical history significant for anemia, PTSD, HLD, depression, anxiety, presents today for evaluation concerning central chest pain with associated shortness of breath that has been present over the past 2 days intermittently. States he has also had a significant nonproductive cough as well as subjective fevers. Has also had N/V and nonbloody diarrhea as well as myalgias. Reports decreased p.o. intake. On assessment, the patient was hemodynamically stable and in no acute distress. Afebrile. Appropriate oxygen saturation on room air. Chest is clear to auscultation bilaterally. Abdomen soft nondistended and nontender to palpation. He did have somewhat of a lethargic appearance. Other physical exam findings unremarkable. Differential diagnoses include not limited to ACS, pleural effusion, pneumonia, gastritis, gastroenteritis, COVID, influenza, other viral URI, among others. No elevation in WBC on CBC at 5.6. CMP with AST of 60. Otherwise nonactionable. He is influenza B positive on swab. His initial troponin was less than 0.01. Chest x-ray was informally interpreted by me and did not show any acute cardiopulmonary disease processes. Radiology report confirmed. On reassessment patient remains hemodynamically stable and in no acute distress. States that he feels improved at this time after Toradol, fluids and Zofran. Discussed with patient ED work-up and results and current plan to discharge. Patient noted that he did not want to Tamiflu. Provided with return to ED precautions and instructions concerning PCP follow-up. Patient verbalized understanding and agreement with plan. Subsequently discharged hemodynamically stable and in no acute distress. Critical Care Critical Care Time Critical Care Time: No
[2023-08-15 12:21] LABS: Chloride 98 mmol/L (98-107); Sodium 136 mmol/L (136-145)
[2023-08-15 12:22] LABS: Potassium 3.8 mmoL/L (3.5-5.1)
[2023-08-15 12:24] LABS: Alanine Aminotransferase 39 U/L (12-78); Alkaline Phosphatase 103 U/L (38-126); Aspartate Amino Transferase 60 U/L (17-59); Bilirubin,Total 0.5 mg/dl (0.2-1.3); Blood Urea Nitrogen 8 mg/dl (9-20); Creatinine Clearance Estimated 159 mL/min (50-200); Estimated Glomerular Filt Rate 93 ml/min (>60); GFR (African American) 113 ML/MIN (>60)
[2023-08-15 12:25] LABS: Albumin Level 4.2 g/dl (3.5-5.0); Albumin/Globulin Ratio 1.4 (1.1-1.8); Anion Gap 6.8 mEq/L (5-15); Calcium 8.7 mg/dl (8.4-10.2); Carbon Dioxide 35 mmol/L (22.0-30.0); Globulin 2.9 g/dL (1.3-3.2); Glucose 118 mg/dl (74-100); Total Protein,Serum 7.1 g/dl (6.3-8.2)
[2023-08-15] MEDS: KETOROLAC 30MG/ML VIAL 15 MG IM (12:28)
[2023-08-15] MEDS: LACTATED RINGERS 1000ML 500 ML 999 ML IV (12:28)
[2023-08-15] MEDS: ONDANSETRON 4MG ODT 4 MG SL (12:28)
[2023-08-15 12:41] LABS: Troponin I < 0.01 ng/ml (0.00-0.034)
[2023-08-15 13:00] VITALS: BP 125/72; PULSE 63; O2SAT 93
[2023-08-15 13:02] LABS: Influenza B, PCR Detected (NotDetected)
[2023-08-15 13:30] VITALS: BP 121/70; PULSE 70; O2SAT 94
[2023-08-15 14:01] VITALS: BP 119/77; PULSE 76; O2SAT 90
[2023-08-15 14:26] VITALS: BP 119/77; PULSE 62; RESP 16; TEMP 36.7
== END 2023-08-15 14:27 | disposition home or self-care (01) ==
PROVIDERS: Emergency Provider Emergency Medicine; PCP Internal Medicine
DX: R07.89 Other chest pain (principal); J10.1 Influenza due to other identified influenza virus with other respiratory manifestations; R06.02 Shortness of breath; R19.7 Diarrhea, unspecified; F17.210 Nicotine dependence, cigarettes, uncomplicated
CPT/HCPCS: 71045; 80053; 84484; 85025; 87636; 93005; 96372; 99284

== ENCOUNTER 2024-07-24 13:52 | Emergency (ER) | payer MEDICAID, SELFPAY ==
[2024-07-24 14:13] VITALS: BMI 26.6
--- NOTE | 2024-07-24 14:14 | XR_ITS ---
PROCEDURE INFORMATION: Exam: XR Left Femur Exam date and time: 07/24/2024 2:19 PM Age: 44 years old Clinical indication: Pain; Knee; Left; Additional info: Injury; Fell TECHNIQUE: Imaging protocol: Radiologic exam of the left femur. Views: 2 views. COMPARISON: CR XR KNEE LT 3V 24/07/2024 14:18 FINDINGS: Bones/joints: No acute fracture or dislocation. Small-moderate suprapatellar effusion. Mild osteoarthritis of the lateral compartment of the knee. Soft tissues: Unremarkable. IMPRESSION: 1. No acute fracture or dislocation. 2. Small-moderate suprapatellar effusion. 3. Mild osteoarthritis of the lateral compartment of the knee.
--- NOTE | 2024-07-24 14:14 | XR_ITS ---
PROCEDURE INFORMATION: Exam: XR Left Knee Exam date and time: 07/24/2024 2:18 PM Age: 44 years old Clinical indication: Pain; Knee; Left; Additional info: Injury; Fell TECHNIQUE: Imaging protocol: Radiologic exam of the left knee. Views: 3 views. COMPARISON: No relevant prior studies available. FINDINGS: Bones/joints: No acute fracture or dislocation. Small-moderate suprapatellar effusion. Mild osteoarthritis of the lateral compartment. Soft tissues: Normal. IMPRESSION: 1. No acute fracture or dislocation. 2. Small-moderate suprapatellar effusion. 3. Mild osteoarthritis of the lateral compartment.
[2024-07-24 14:15] VITALS: BP 122/77; PULSE 79; RESP 16; TEMP 36.8; O2SAT 97; BMI 26.6
--- NOTE | 2024-07-24 15:25 | ED_ITS ---
Discharge Plan Disposition Patient Disposition: Home, Self-Care Prescriptions Prescriptions: No Action cholecalciferol (vitamin D3) 125 mcg (5,000 unit) capsule 125 mcg PO DAILY 60 Days Qty: 60 3RF buprenorphine-naloxone [Suboxone] 2-0.5 mg film 1 film buccal DAILY Rx Instructions: place 1 strip/tab under (each) side of tongue alprazolam 1 mg tablet 1 mg PO QID 30 Days Qty: 120 0RF dextroamphetamine-amphetamine [Adderall] 20 mg tablet 20 mg PO DAILY 30 Days Qty: 30 0RF amitriptyline 50 mg tablet 50 mg PO HS Qty: 60 2RF cyanocobalamin (vitamin B-12) 1,000 mcg tablet, sublingual See Rx Instructions .ROUTE .COMPLEX Qty: 30 0RF Dose Instruction: DISSOLVE 1 TABLET ON THE TONGUE ONCE A DAY Rx Instructions: DISSOLVE 1 TABLET ON THE TONGUE ONCE A DAY ondansetron HCl 4 mg tablet See Rx Instructions .ROUTE .COMPLEX Qty: 30 0RF Dose Instruction: TAKE ONE TABLET BY MOUTH EVERY 8 HOURS NEEDED FOR NAUSEA AND VOMITING Rx Instructions: TAKE ONE TABLET BY MOUTH EVERY 8 HOURS NEEDED FOR NAUSEA AND VOMITING Referrals Follow up/Referrals: Gurjit Resendez MD [Primary Care Provider] - See instructions Tutu Babb DO [Staff Physician] - See instructions Activity Restrictions/Add. Instructions Additional Instructions/Restrictions: Call your family doctor to establish care for this visit to the emergency department and schedule follow-up within 48 hours to ensure improvement. If you have any worsening of your condition or any other concerning signs or symptoms, return to the emergency department or your primary care doctor for further evaluation. Take Tylenol 1000 mg every 6 hours (4 times daily) as needed with food and water to prevent GI upset and kidney damage. Clinical Impressions Clinical Impression: Acute knee pain Qualifiers: Laterality: left Qualified Code(s): M25.562 - Pain in left knee Patellar fracture Qualifiers: Encounter type: initial encounter Fracture type: closed Fracture morphology: longitudinal Fracture alignment: nondisplaced Laterality: left Qualified Code(s): S82.025A - Nondisplaced longitudinal fracture of left patella, initial encounter for closed fracture Print Language Print Language: Hungarian Discharge ED Provider: Moris Naranjo General Adult [facility] General Chief complaint: Extremity Injury, Lower Stated complaint: L knee pain Time Seen by Provider: 07/24/24 15:23 Mode of Arrival: Ambulatory Source of Information: Patient Limitations: No Limitations Description of Symptoms (Recalled from ER Triage Doc. by RN): pt states about a week ago he fell on ice and injured his L knee. pt also reports that after that he was stepping into the tractor when he twisted his L knee. pt reports his pain is 10/10, pain radiates proximal to his mid femur, aching and keeping him up at night. History of Present Illness HPI narrative: Please note that above description of symptoms, in this electronic medical record under categorization of recalled from ER triage doctor by RN are reflective of an initial nursing assessment, however, is not reflective of my full history and physical exam that was personally taken and clarified. Consequentially, this preceding description of symptoms, which may include the patient's categorized chief complaint in the EMR, do not reflect my personal clinical impression, and the ultimate description of history of present illness and patient stated complaints should be deferred to this section of the note. Unless stated otherwise or congruent with this section of the note, additional signs, symptoms, or incongruence should be interpreted as inaccurate with my clinical impression. Related Data Home Medications ?Medication ?Instructions ?Recorded ?Confirmed buprenorphine 2 mg-naloxone 0.5 mg 1 film buccal DAILY 12/20/23 06/27/24 sublingual film (Suboxone) Previous Rx's ?Medication ?Instructions ?Recorded cholecalciferol (vitamin D3) 125 125 mcg PO DAILY 60 days #60 caps 08/03/23 mcg (5,000 unit) capsule amitriptyline 50 mg tablet 50 mg PO HS #60 tabs 05/15/24 alprazolam 1 mg tablet 1 mg PO QID anxiety 30 days #120 06/27/24 tabs cyanocobalamin (vitamin B-12) See Rx Instructions .Route 06/27/24 1,000 mcg sublingual tablet .COMPLEX #30 tabs dextroamphetamine-amphetamine 20 20 mg PO DAILY 30 days #30 tabs 06/27/24 mg tablet (Adderall) ondansetron HCl 4 mg tablet See Rx Instructions .Route 06/27/24 .COMPLEX #30 tabs Allergies Allergy/AdvReac Type Severity Reaction Status Date / Time NSAIDS (Non-Steroidal Allergy Intermediate Other Verified 07/24/24 14:39 Anti-Inflamma [facility] Disclaimer: The information contained in this section may have been updated after the patient was seen, as this information can be updated by other users. Medical History (Updated 07/24/24 @ 16:21 by Moris Naranjo MD) Polysubstance use disorder Chronic pain Right foot pain Anxiety Social History Smoking Status: Never smoker alcohol intake: never substance use type: former substance user, marijuana, heroin and opiates current occupational status: other Travel in the last 8 weeks: None household members: family housing: house Have you lived/traveled outside [place] in past 30 days?: No Contact w/someone who lives/traveled outside [place] past 30 days?: No Exposure to someone with infectious disease in past 14 days?: No Do you have a fever (greater than 100.4 F or 38 C)?: No Have you tested positive for COVID-19: No Exposed to someone with COVID-19 in past 14 days?: No Do you have a sore throat?: No Do you have a cough?: No Do you have any weakness?: No Do you have any diarrhea?: No Are you experiencing any unusual bleeding?: No Do you have any muscle aches/pain?: No Do you have any abdominal pain?: No Are you experiencing loss of taste or smell?: No Other Medical History Have you received the Flu Vaccine for this season: No Have you received the Pneumonia Vaccine: No ROS Obtained: Yes All systems reviewed & no additional complaints except as documented Physical Exam General General appearance: alert Head Head exam: atraumatic and normocephalic Eye Eye exam: Present normal appearance, PERRL and EOMI Neck Neck exam: Present normal inspection, full ROM and trachea midline Respiratory Respiratory exam: Absent respiratory distress, wheezes, stridor, accessory muscle use or prolonged expiratory phase Cardiovascular Cardiovascular exam: Present other (Pulses equal symmetric in upper and lower extremities) Abdominal Exam Abdominal exam: Present soft; Absent distention, tenderness or pulsatile mass Extremities Exam Extremities exam: Present edema and other (Per MDM) Neurological Exam Neurological exam: Present alert, oriented X3 and CN II-XII intact; Absent motor sensory deficit Skin Skin exam: Present warm and dry; Absent diaphoresis or erythema Medical Decision Making Medical Records Medical records reviewed: Yes I reviewed the patient's medical records. Screening: Per USPSTF and CDC recommendations, given the prevalence of disease in our region, it is our hospital?s policy to screen for HIV and viral Hepatitis for all patients aged 18 and over and those with ongoing risk factors. Frederick Inquiry Pt receiving controlled substance: No Frederick was queried for this patient: No Vital Signs: 07/24/24 14:15 Temperature 98.2 F Temperature Source Oral Pulse Rate [Left] 79 Respiratory Rate 16 Blood Pressure [Right Arm] 122/77 Blood Pressure Mean [Right Arm] 92 Blood Pressure Source [Right Arm] Automatic Cuff Blood Pressure Position [Right Arm] Sitting 02 Sat by Pulse Oximetry 97 Oxygen Delivery Method Room Air Orders (Tests/Meds): ORDERS Category Date Time Status CT knee LT wo con Stat Cat Scan 07/24/24 15:37 Taken XR femur LT 2V Stat Exams 07/24/24 14:14 Completed XR knee LT 3V Stat Exams 07/24/24 14:14 Completed Medical Decision Narrative: 44-year-old male presenting with left knee pain. Patient states that he slipped on the ice a couple days prior to this and landed straight on his kneecap. Had huge knee swelling, that has since gotten better. States that he stepped off the tractor, twisted his knee as it fell into a hole couple days prior to this and the combination of the 2 is left his knee swollen and tender. Has not noticed anything that makes any better, but he can bear weight on it. Moderate in intensity, does not radiate. History obtained the patient. On arrival, he is very well-appearing. He has an obvious knee effusion, tenderness about the patella. No joint space tenderness. No posterior tenderness. Structurally intact, neurovascularly intact. Differential includes fracture, sprain, strain, soft tissue injury, among others. X-rays obtained, these were negative on independent interpretation. Given patient has significant proximal tibial pain and effusion, CT Noncon was ordered. On independent TURP Tatian, he has a late ral patellar fracture, but no other acute intraarticular abnormality. Because patient at baseline without signs or symptoms of clinical decompensation, deemed appropriate for discharge. Results were relayed to patient who voiced understanding and were agreeable to outpatient management and follow up. I discussed my clinical impression with patient and answered all questions. At this time, the evidence for any other entities in the differential is insufficient to warrant any further testing or ED observation. This was explained as well. Advisory was given that persistent or worsening symptoms require further evaluation. I confirmed the understanding of this discussion. Cloth Burler disclaimer Much of this encounter note is an electronic supervisor fabrication spoken language to printed text. Electronic supervisor fabrication of the spoken language may permit errors. Although I have reviewed the note, some errors may still exist. Critical Care Critical Care Time Critical Care Time: No
--- NOTE | 2024-07-24 15:37 | CT_ITS ---
PROCEDURE INFORMATION: Exam: CT Left Lower Extremity, Knee Exam date and time: 07/24/2024 3:57 PM Age: 44 years old Clinical indication: Injury or trauma; Other: Pain after fall; Additional info: Tibial plateau pain TECHNIQUE: Imaging protocol: CT of the left lower extremity without contrast was performed. Exam focused on the knee. Radiation optimization: All CT scans at this facility use at least one of these dose optimization techniques: automated exposure control; mA and/or kV adjustment per patient size (includes targeted exams where dose is matched to clinical indication); or iterative reconstruction. COMPARISON: CR XR KNEE LT 3V 24/07/2024 14:18 FINDINGS: Bones/joints: Acute sagittally oriented fracture through the lateral aspect of the patella. Small to moderate suprapatellar effusion. Mild osteoarthrosis of the lateral compartment of the knee. Soft tissues: Normal. IMPRESSION: 1. Acute sagittally oriented fracture through the lateral aspect of the patella. 2. Small to moderate suprapatellar effusion. 3. Mild osteoarthrosis of the lateral compartment of the knee.
[2024-07-24 16:34] VITALS: BP 118/72; PULSE 74; RESP 16; TEMP 36.6
== END 2024-07-24 16:37 | disposition home or self-care (01) ==
PROVIDERS: Emergency Provider Emergency Medicine; PCP Family Medicine
DX: M25.562 Pain in left knee (principal); S82.025A Nondisplaced longitudinal fracture of left patella, initial encounter for closed fracture; W00.0XXA Fall on same level due to ice and snow, initial encounter; Y93.89 Activity, other specified
CPT/HCPCS: 73552; 73562; 73700; 99284

== ENCOUNTER 2024-11-16 21:20 | Emergency (ER) | payer MEDICAID, SELFPAY ==
[2024-11-16 21:38] VITALS: BP 185/100; PULSE 105; RESP 16; TEMP 36.7; O2SAT 97; BMI 28.4
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
[2024-11-16 21:42] VITALS: BP 185/100; PULSE 105; RESP 16; TEMP 36.7; O2SAT 97
== END 2024-11-16 21:46 ==
PROVIDERS: Emergency Provider Emergency Medicine; PCP Family Medicine
DX: F41.9 Anxiety disorder, unspecified (principal); V47.5XXA Car driver injured in collision with fixed or stationary object in traffic accident, initial encounter; Y92.410 Unspecified street and highway as the place of occurrence of the external cause
CPT/HCPCS: 99281

== ENCOUNTER 2025-02-21 11:31 | Inpatient (IN) | payer MEDICAID, SELFPAY ==
[2025-02-21] VITALS (7 sets, daily range): BP systolic 108–148; BP diastolic 56–82; PULSE 86–99; RESP 13–22; TEMP 36.7–36.8; O2SAT 89–99; BMI 28.8
--- NOTE | 2025-02-21 11:36 | ECG_ITS ---
APPROVED REPORT Exam: Resting ECG HR:102 bpm ECG Measurements Heart Rate 102 AXES VA 143 P 40 QRSd 88 QRS 59 QT 322 T 26 QTc 380 Conclusion SINUS TACHYCARDIA ABNORMAL RHYTHM ECG Electronically signed by : LUCÍA IVORY, 02/22/2025 07:26:36
--- OUTSIDE RECORDS SUMMARY | 2025-02-21 11:36 | XMS_ITS | Clinical Summary ---
Author Organization [facility] Address [address] [place] [address] Care Team Providers Care Cold Storage Superintendent Name Role Phone Pcp, No Primary Care Provider Unavailabl e Allergies Active Allergy Reactions Criticality Noted Date Comments Acetaminophen GI bleeding High 11/21/2024 Ibuprofen GI bleeding High 11/21/2024 Promethazine Anxiety Low 11/21/2024 Medications naloxone (Narcan) 4 mg/0.1 mL nasal spray 1. Give 1 spray in nostril for no/slow breathing or cannot wake after opioid use 2. Call 911 3. Repeat in other nostril if symptoms continue 1 each 5 Active naloxone (Narcan) 4 mg/0.1 mL nasal spray 1. Give 1 spray in nostril for no/slow breathing or cannot wake after opioid use 2. Call 911 3. Repeat in other nostril if symptoms continue Call 911. Give 4 mg (1 spray) into one nostril. Repeat every 2-3 minutes as needed, alternating nostrils, until medical assistance arrives. 1 each 5 11/22/19 26 Active amphetamine-dex troamphetamine XR (Adderall XR) 20 MG 24 hr capsule Take 1 capsule by mouth every morning. 5 Active Melatonin 10 MG capsule Take 1 capsule by mouth nightly. Active diphenhydrAMINE (Benadryl) 25 MG capsule Take by mouth at night as needed for sleep. Active Vitamin D3 125 MCG (5000 UT) capsule Take 1 capsule by mouth daily. Active B-12 [address] 1 tablet under the tongue daily. Active amitriptyline (Elavil) 50 MG tablet Take 1 tablet by mouth nightly for 14 days. 14 tablet Active cyclobenzaprine (Flexeril) 5 MG tablet Take 1 tablet by mouth 3 times a day as needed for muscle spasms (back pain). 30 tablet Active Active Problems Problem Noted Date Diagnosed Date Alcohol use 11/20/2024 Encounters Date Type Department Care Team Description 11/22/2024 Travel 11/20/2024 1:26 PM EDT - 11/22/2024 1:51 PM EDT Hospital Encounter SUJATHA ARELLANO [address] [facility] [address] [place] [address] Jovi Maradiaga MD Labrada, Diana, MD Oo, Yadana, MD Voss, Gareth J, MD Alcohol use (Primary Dx) Discharge Disposition: Home or Self Care from Last 3 Months Social History Tobacco Use Types Packs/Day Years Used Date Smoking Tobacco: Former Cigarettes Smokeless Tobacco: Never Tobacco Cessation:Counseling Given: No Alcohol Use Standard Drinks/Week Comments Yes 14 (1 standard drink = 0.6 oz pu re alcohol) vignesh AUDIT-C Answer Date Recorded Q1: How often do you have a drink containing alc ohol? 2-4 times a month 11/22/2024 Q2: How many drinks containi ng alcohol do you have on a typical day when you are drinking? 1 or 2 11/22/2024 Q3: How often do you have si x or more drinks on one occasion? Never 11/22/2024 CAGE ASSESSMENT Answer Date Recorded Cage unable to access Not on file 11/22/2024 Cage max number of drinks Not on file 2024 Cage Beverages a week Not on file 11/22/2024 Have you ever felt you should CUT down on your d rinking? 1 11/22/2024 Have you been ANNOYED by people criticizing your drinking? 1 11/22/2024 Have you felt GUILTY about your drinking? 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 1 11/22/2024 CAGE Questionnaire Score 4 025 Sex and Gender Information Value Date Recorded Sex Assigned at Not on file Legal Sex Male 7:43 PM EDT Gender Identity Male 11/26/2024 8:13 AM EDT Sexual Orientation Straight 11/26/2024 8: 13 AM EDT Last Filed Vital Signs Vital Sign Reading Time Taken Comments Blood Pressure 138/89 11/22/2024 7:46 AM EDT Pulse 55 11/22/2024 7:46 AM EDT Temperature 36.4 C (97.6 F) 11/22/2024 7:46 AM EDT Respiratory Rate 14 11/22/2024 4:16 AM EDT Oxygen Saturation 99% 11/22/2024 7:46 AM EDT Inhaled Oxygen Concentration - - Weight 118 kg (260 lb 12.9 oz) 11/22/2024 6:36 A M EDT Height 195.6 cm (6' 5 ) 11/22/2024 6:36 AM EDT Body Mass Index 30.93 11/22/2024 6:36 AM EDT Plan of Treatment Health Maintenance Due Date Last Done Comments [facility]-Depression Screening 1982 [facility]-/Child/Adol SDOH Screenings 1982 [id number] Vaccine (#1) 1987 [facility]-Varicella Vaccines (1 of 2 - 13+ 2-dose series) 1995 [facility]- SDOH Screenings 2000 [facility]-Adult SDOH Screenings 2000 [facility]-Hepatitis B Vaccines (1 of 3 - 19+ 3-dose series) 2001 [facility]-Pneumococcal Vaccine: Pediatrics (0 to 5 Years) and At-Risk Patients (6 to 49 Years) (1 of 2 - PCV) 2001 HPV Vaccines (1 - 3-dose SCD M series) 2009 [facility]-Influenza Vaccine (#1) 2025 [facility]-DTaP,Tdap,and Td Vaccine s (2 - Td or Tdap) 10/10/2026 10/10/2016 [facility]-Zoster Vaccines (1 of 2) 2032 [facility]-HIV Screening Completed 11/20/2024 [facility]-Hepatitis C Screening Completed 11/20/2024 [facility]-Obesity Intervention Completed 11/20/2024 [facility]-HIB Vaccines Aged Out No longer e ligible based on patient's age to complete this topic [facility]-Hepatitis A Vaccines Aged Out No longer eligible based on patient's age to complete this topic [facility]-IPV Vaccines Aged Out No longer e ligible based on patient's age to complete this topic [facility]-Rotavirus Vaccines Aged Out No lo nger eligible based on patient's age to complete this topic Procedures Procedure Name Priority Date/Time Associated Diagnosis Comments PHOSPHORUS, PLASMA Routine 11/22/2024 2: 29 AM EDT MAGNESIUM, PLASMA Routine 11/22/2024 2:2 9 AM EDT BASIC METABOLIC PANEL, PLASMA Routine 11/22/2024 2:29 AM EDT CBC W/O DIFFERENTIAL Routine 11/22/2024 2:29 AM EDT OXYGEN THERAPY STAT 11/21/2024 8:00 AM EDT PHOSPHORUS, PLASMA Routine 11/21/2024 3: 19 AM EDT MAGNESIUM, PLASMA Routine 11/21/2024 3:1 9 AM EDT COMPREHENSIVE METABOLIC PANEL, PLASMA Routine 11/21/2024 3:19 AM EDT CBC WITH AUTO DIFFERENTIAL Routine 11/21/2024 3:19 AM EDT HEPATITIS C ANTIBODY - ED W/REFLEX TO HCV QUANT PCR Routine 11/20/2024 2:11 PM EDT ED HIV 1/2 ANTIBODY/ANTIGEN SCREEN WITH REFLEX TO HIV I/II DIFFERENTIATION Routine 11/20/2024 2:11 PM EDT from Last 3 Months or Most Recently Relevant to Health Maintenance Results * (ABNORMAL) CBC W/O Differential (11/22/2024 2:29 AM EDT) WBC Count 4.53 3.70 - 10.30 10*3/uL LAB HEMATOLOGY METHOD 11/22/2024 2:35 AM EDT [facility] RBC Count 4.02(L) 4.60 - 6.10 10*6/uL LAB HEMATOLOGY METHOD 11/22/2024 2:35 AM EDT [facility] HGB 12.7(L) 13.7 - 17.5 g/dL LAB HEMATOLOGY METHOD 11/22/2024 2:35 AM EDT [facility] HCT 38.2(L) 40.0 - 51.0 % LAB HEMATOLOGY METHOD 11/22/2024 2:35 AM EDT [facility] Platelet Count 161 155 - 369 10*3/uL LAB HEMATOLOGY METHOD 11/22/2024 2:35 AM EDT [facility] MCV 95 79 - 98 fL LAB HEMATOLOGY METHOD 11/22/2024 2:35 AM EDT [facility] MCH 31.6 26.0 - 32.0 pg LAB HEMATOLOGY METHOD 11/22/2024 2:35 AM EDT [facility] MCHC 33.2 30.7 - 35.5 g/dL LAB HEMATOLOGY METHOD 11/22/2024 2:35 AM EDT [facility] RDW 13.7 11.5 - 14.5 % LAB HEMATOLOGY METHOD 11/22/2024 2:35 AM EDT [facility] MPV 9.1 8.8 - 12.5 fL LAB HEMATOLOGY METHOD 11/22/2024 2:35 AM EDT [facility] nRBC 0.0 <=0.0 per 100 WBCs LAB HEMATOLOGY METHOD 11/22/2024 2:35 AM EDT [facility] Blood Venous blood specimen / Unknown Venipuncture / Unknown 11/22/2024 2:29 AM EDT 11/22/2024 2:33 AM EDT us Satish Isabel MD LAB BLOOD ORDERABLES Final Resu lt [facility] [address] [place] [address] * Phosphorus, Plasma (11/22/2024 2:29 AM EDT) Only the most recent of2 resultswithin the time period is included. Phosphorus, Plasma 3.9 2.5 - 4.5 mg/dL 11/22/2024 3:21 AM EDT [facility] Blood Venous blood specimen / Unknown Venipuncture / Unknown 11/22/2024 2:29 AM EDT 11/22/2024 2:51 AM EDT Satish Isabel MD LAB BLOOD ORDERABLES Final Resu lt Performing Organization Address [facility] Co de Phone Number [facility] [address] [place] [address] * Magnesium, Plasma (11/22/2024 2:29 AM EDT) Only the most recent of2 resultswithin the time period is included. Magnesium, Plasma 2.1 1.9 - 2.4 mg/dL 11/22/2024 3:21 AM EDT [facility] Blood Venous blood specimen / Unknown Venipuncture / Unknown 11/22/2024 2:29 AM EDT 11/22/2024 2:51 AM EDT Satish Isabel MD LAB BLOOD ORDERABLES Final Resu lt Performing Organization Address [facility] Co de Phone Number [facility] [address] [place] [address] * (ABNORMAL) Basic metabolic panel (11/22/2024 2:29 AM EDT) Glucose, Plasma 92 74 - 99 mg/dL 11/22/2024 3:21 AM EDT [facility] BUN, Plasma 15 7 - 21 mg/dL 11/22/2024 3:21 AM EDT [facility] Creatinine, Plasma 0.82 0.70 - 1.20 mg/dL 11/22/2024 3:21 AM EDT [facility] BUN/Creatinine Ratio 18 11/22/2024 3:21 AM EDT [facility] Sodium, Plasma 143 136 - 145 mmol/L 11/22/2024 3:21 AM EDT [facility] Potassium, Plasma 3.2(L) 3.6 - 4.9 mmol/L 11/22/2024 3:21 AM EDT [facility] Chloride, Plasma 108(H) 97 - 107 mmol/L 11/22/2024 3:21 AM EDT [facility] CO2, Plasma 24 22 - 29 mmol/L 11/22/2024 3:21 AM EDT [facility] Anion Gap 11 6 - 16 mmol/L 11/22/2024 3:21 AM EDT [facility] Total Calcium, Plasma 8.6(L) 8.9 - 10.2 mg/dL 11/22/2024 3:21 AM EDT [facility] eGFRcr 112.5 mL/min/1.7 3m*2 11/22/2024 3:21 AM EDT [facility] Comment:Reported eGFRcr in m L/min/1.73m2 is based the CKD-EPI 2020 equation that does not use a race coefficient. Blood Venous blood specimen / Unknown Venipuncture / Unknown 11/22/2024 2:29 AM EDT 11/22/2024 2:51 AM EDT us Satish Isabel MD LAB BLOOD ORDERABLES Final Resu lt [facility] [address] [place] [address] * (ABNORMAL) CBC and Differential (11/21/2024 3:19 AM EDT) WBC Count 6.55 3.70 - 10.30 10*3/uL LAB HEMATOLOGY METHOD 11/21/2024 3:26 AM EDT [facility] RBC Count 4.22(L) 4.60 - 6.10 10*6/uL LAB HEMATOLOGY METHOD 11/21/2024 3:26 AM EDT [facility] HGB 13.4(L) 13.7 - 17.5 g/dL LAB HEMATOLOGY METHOD 11/21/2024 3:26 AM EDT [facility] HCT 39.4(L) 40.0 - 51.0 % LAB HEMATOLOGY METHOD 11/21/2024 3:26 AM EDT [facility] Platelet Count 163 155 - 369 10*3/uL LAB HEMATOLOGY METHOD 11/21/2024 3:26 AM EDT [facility] MCV 93 79 - 98 fL LAB HEMATOLOGY METHOD 11/21/2024 3:26 AM EDT [facility] MCH 31.8 26.0 - 32.0 pg LAB HEMATOLOGY METHOD 11/21/2024 3:26 AM EDT [facility] MCHC 34.0 30.7 - 35.5 g/dL LAB HEMATOLOGY METHOD 11/21/2024 3:26 AM EDT [facility] RDW 13.8 11.5 - 14.5 % LAB HEMATOLOGY METHOD 11/21/2024 3:26 AM EDT [facility] MPV 9.1 8.8 - 12.5 fL LAB HEMATOLOGY METHOD 11/21/2024 3:26 AM EDT [facility] nRBC 0.0 <=0.0 per 100 WBCs LAB HEMATOLOGY METHOD 11/21/2024 3:26 AM EDT [facility] Differential Type Automated LAB HEMATOLOGY METHOD 11/21/2024 3:26 AM EDT [facility] Neutrophils % 65 % LAB HEMATOLOGY METHOD 11/21/2024 3:26 AM EDT [facility] Lymphocytes % 24 % LAB HEMATOLOGY METHOD 11/21/2024 3:26 AM EDT [facility] Monocytes % 8 % LAB HEMATOLOGY METHOD 11/21/2024 3:26 AM EDT [facility] Eosinophils % 2 % LAB HEMATOLOGY METHOD 11/21/2024 3:26 AM EDT [facility] Basophils % 1 % LAB HEMATOLOGY METHOD 11/21/2024 3:26 AM EDT [facility] Immature Granulocytes % 0 % LAB HEMATOLOGY METHOD 11/21/2024 3:26 AM EDT [facility] Neutrophils Absolute 4.28 1.60 - 6.10 10*3/uL LAB HEMATOLOGY METHOD 11/21/2024 3:26 AM EDT [facility] Lymphocytes Absolute 1.57 1.20 - 3.90 10*3/uL LAB HEMATOLOGY METHOD 11/21/2024 3:26 AM EDT [facility] Monocytes Absolute 0.54 0.30 - 0.90 10*3/uL LAB HEMATOLOGY METHOD 11/21/2024 3:26 AM EDT [facility] Eosinophils Absolute 0.10 0.00 - 0.50 10*3/uL LAB HEMATOLOGY METHOD 11/21/2024 3:26 AM EDT [facility] Basophils Absolute 0.05 0.00 - 0.10 10*3/uL LAB HEMATOLOGY METHOD 11/21/2024 3:26 AM EDT [facility] Immature Granulocytes Absolute 0.01 0.00 - 0.06 10*3/uL LAB HEMATOLOGY METHOD 11/21/2024 3:26 AM EDT [facility] Blood Venous blood specimen / Unknown Venipuncture / Unknown 11/21/2024 3:19 AM EDT 11/21/2024 3:24 AM EDT Narrative [facility] - 11/21/2024 3:26 AM EDT Therapeutic decision making should be based on absolute values, rather than percentages. us Marek Holly MD LAB BLOOD ORDERABLES Final Resul t [facility] [address] [place] [address] * (ABNORMAL) Comprehensive metabolic panel (11/21/2024 3:19 AM EDT) Glucose, Plasma 120(H) 74 - 99 mg/dL 11/21/2024 3:58 AM EDT [facility] BUN, Plasma 10 7 - 21 mg/dL 11/21/2024 3:58 AM EDT [facility] Creatinine, Plasma 0.93 0.70 - 1.20 mg/dL 11/21/2024 3:58 AM EDT [facility] BUN/Creatinine Ratio 11 11/21/2024 3:58 AM EDT [facility] Sodium, Plasma 143 136 - 145 mmol/L 11/21/2024 3:58 AM EDT [facility] Potassium, Plasma 4.1 3.6 - 4.9 mmol/L 11/21/2024 3:58 AM EDT [facility] Comment:Hemolyzed, result ma y be falsely increased. Chloride, Plasma 108(H) 97 - 107 mmol/L 11/21/2024 3:58 AM EDT [facility] CO2, Plasma 22 22 - 29 mmol/L 11/21/2024 3:58 AM EDT [facility] Anion Gap 13 6 - 16 mmol/L 11/21/2024 3:58 AM EDT [facility] Total Calcium, Plasma 8.6(L) 8.9 - 10.2 mg/dL 11/21/2024 3:58 AM EDT [facility] Total Protein 6.4 6.3 - 7.9 g/dL 11/21/2024 3:58 AM EDT [facility] Albumin, Plasma 4.1 3.5 - 5.2 g/dL 11/21/2024 3:58 AM EDT [facility] AST, Plasma 41 10 - 50 U/L 11/21/2024 3:58 AM EDT [facility] Comment:Hemolyzed, result ma y be falsely increased. ALT, Plasma 21 10 - 50 U/L 11/21/2024 3:58 AM EDT [facility] Alkaline Phosphatase, Plasma 79 40 - 115 U/L 11/21/2024 3:58 AM EDT [facility] Total Bilirubin, Plasma 0.8 0.2 - 1.1 mg/dL 11/21/2024 3:58 AM EDT [facility] eGFRcr 105.1 mL/min/1.7 3m*2 11/21/2024 3:58 AM EDT [facility] Comment:Reported eGFRcr in m L/min/1.73m2 is based the CKD-EPI 2020 equation that does not use a race coefficient. Blood Venous blood specimen / Unknown Venipuncture / Unknown 11/21/2024 3:19 AM EDT 11/21/2024 3:24 AM EDT us Marek Holly MD LAB BLOOD ORDERABLES Final Resul t [facility] [address] [place] [address] * ED HIV 1/2 Antibody/Antigen Screen w/Reflex to HIV 1/2 Differentiation (11/20/2024 2:11 PM EDT) HIV 1 & 2 Antibody/Antigen Screen Non Reactive Non Reactive 11/20/2024 3:07 PM EDT [facility] Comment:Screening for HIV 1 & 2 antibodies, and P24 antigen is NONREACTIVE. No confirmatory testing is required. Blood Venous blood specimen / Unknown Venipuncture / Unknown 11/20/2024 2:11 PM EDT 11/20/2024 2:20 PM EDT Ash Boston MD LAB BLOOD ORDERABLES Final R esult [facility] [address] [place] [address] * Hepatitis C Antibody - ED (11/20/2024 2:11 PM EDT) Hepatitis C Antibody Negative Negative 11/20/2024 3:07 PM EDT [facility] Blood Venous blood specimen / Unknown Venipuncture / Unknown 11/20/2024 2:11 PM EDT 11/20/2024 2:20 PM EDT Ash Boston MD LAB BLOOD ORDERABLES Final R esult Performing Organization Address City/[facility] Co de Phone Number [facility] [address] [place] [address] from Last 3 Months or Most Recently Relevant to Health Maintenance Insurance [id number] [id number] [facility] [employer] MED[employer] [facility] [employer] Advance Directives * Full Code (Latest Code Status on File) Date Activated Date Inactivated Comments 11/20/2024 4:51 PM 11/22/2024 3:56 PM Question Answer Comments I have reviewed the capacity from the link above and, if needed, have updated to appropriate status: Yes Care Teams Cold 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
--- OUTSIDE RECORDS SUMMARY | 2025-02-21 11:36 | XMS_ITS | Clinical Summary ---
Author Organization [facility] Address [address] 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 Name Role Phone Unavailable Primary Care Provider Unavailabl e Social History Tobacco Use Types Packs/Day Years Used Date Smoking Tobacco: Never Assessed Sex and Gender Information Value Date Recorded Sex Assigned at Not on file Legal Sex Male 9:05 AM EDT Gender Identity Not on file Sexual Orientation Not on file Plan of Treatment Health Maintenance Due Date Last Done Comments Annual Wellness Exam 1985 DTaP/TDaP/Td (1 - Tdap) 2001 Hepatitis B Vaccine (1 of 3 - 19+ 3-dose series) 2001 COVID-19 Vaccine (2023-2 5 season) 2024 Influenza Vaccine (#1) 2025 Meningococcal B Vaccine Aged Out No l onger eligible based on patient's age to complete this topic Pneumococcal Vaccine 0-49 Aged Out No longer eligible based on patient's age to complete this topic
--- NOTE | 2025-02-21 11:47 | XR_ITS ---
PROCEDURE INFORMATION: Exam: XR Chest Exam date and time: 02/21/2025 12:06 PM Age: 44 years old Clinical indication: Other: Melena TECHNIQUE: Imaging protocol: Radiologic exam of the chest. Views: 1 view. COMPARISON: CR XR CHEST PORTABLE 08/15/2023 12:09 PM FINDINGS: Tubes, catheters and devices: EKG leads. Lungs: Unremarkable. No consolidation. Pleural spaces: Unremarkable. No pleural effusion. No pneumothorax. Heart/Mediastinum: Unremarkable. No cardiomegaly. Bones/joints: Unremarkable. IMPRESSION: Normal chest x-ray.
[2025-02-21 11:52] LABS: Hematocrit 34.6 % (42.0-52.0); Hemoglobin 11.1 g/dL (14.1-18.0); Immature Granulocytes % 1.0 %; Mean Corpuscular HGB Conc 32.1 g/dL (31.8-35.4); Mean Corpuscular Hemoglobin 30.9 pg (27.0-31.2); Mean Corpuscular Volume 96.4 fl (80-94); Nucleated Red Blood Cells % 0 %; Platelet Count 207 K/mm3 (142-424); Red Blood Count 3.59 M/mm3 (4.60-6.20); Red Cell Distribution Width-SD 45.4 fL; White Blood Count 8.4 K/mm3 (4.8-10.8)
[2025-02-21 12:06] LABS: Albumin Level 4.1 g/dl (3.5-5.0); Chloride 107 mmol/L (98-107); Sodium 142 mmol/L (136-145)
[2025-02-21 12:07] LABS: Potassium 4.6 mmoL/L (3.5-5.1)
[2025-02-21 12:09] LABS: Alanine Aminotransferase 22 U/L (12-78); Albumin/Globulin Ratio 1.6 (1.1-1.8); Alkaline Phosphatase 61 U/L (38-126); Anion Gap 11.6 mEq/L (5-15); Aspartate Amino Transferase 39 U/L (17-59); Bilirubin,Total 1.8 mg/dl (0.2-1.3); Blood Urea Nitrogen 50 mg/dl (9-20); Carbon Dioxide 28 mmol/L (22.0-30.0); Creatinine Clearance Estimated 171 mL/min (50-200); Creatinine,Serum 0.90 mg/dl (0.66-1.25); Estimated Glomerular Filt Rate 93 ml/min (>60); GFR (African American) 112 ML/MIN (>60); Globulin 2.6 g/dL (1.3-3.2); Total Protein,Serum 6.7 g/dl (6.3-8.2)
[2025-02-21 12:10] LABS: Calcium 8.9 mg/dl (8.4-10.2); Glucose 111 mg/dl (74-100)
[2025-02-21 12:22] LABS: Troponin I 0.10 ng/ml (0.00-0.034)
[2025-02-21] MEDS: LACTATED RINGERS 1000ML 1,000 ML 999 ML IV (12:25)
[2025-02-21] MEDS: CEFTRIAXONE 1 GM 1 GM in 0.9 % SODIUM CHLORIDE 50 ML IV (12:40)
[2025-02-21 12:45] LABS: D-Dimer 0.59 ug/mL (0.0-0.5)
[2025-02-21 12:58] LABS: Hepatitis C Ab Qual. W/ RFX NEGATIVE (Negative); INR 1.09 (0.9-1.1); Prothrombin Time 12.0 seconds (10.1-12.5)
--- NOTE | 2025-02-21 13:01 | ED_ITS ---
Discharge Plan Disposition Patient Disposition: Admitted Condition: Fair Clinical Impressions Clinical Impression: Black tarry stools, Anemia Discharge ED Provider: Haider Segundo JR General Adult HPI General Chief complaint: Shortness of Breath/Dyspnea Stated complaint: CP Time Seen by Provider: 02/21/25 11:38 Mode of Arrival: Wheelchair Source of Information: Patient and Spouse Description of Symptoms (Recalled from ER Triage Doc. by RN): pt is experiencing shortness of breath and weakness, black liquid stool. pale,diaphoretic, frequent drinker. History of Present Illness HPI narrative: 44-year-old male with history of alcohol abuse, previous drug abuse presents to the Emergency Department for evaluation of shortness of breath, weakness, generalized fatigue, and an episode of dark tarry melanotic stool earlier today. Patient denies current fever, chills, chest pain, jillian pain, vomiting. Endorses heavy alcohol abuse. Last drink 5 PM yesterday. Upon further history, patient endorses multiple episodes of melanotic stool over the last day. Arrives tachycardic and hypotensive. Pale appearing. Related Data Home Medications ?Medication ?Instructions ?Recorded ?Confirmed buprenorphine 8 mg-naloxone 2 mg 1 film sublingual LJ LY 11/25/24 12/22/24 sublingual film cyclobenzaprine 5 mg tablet 5 mg PO HS 11/25/24 Previous Rx's ?Medication ?Instructions ?Recorded cholecalciferol (vitamin D3) 125 125 mcg PO DAILY 60 d ays #60 caps 10/23/24 mcg (5,000 unit) capsule cyanocobalamin (vitamin B-12) See Rx Instructions .Rou te 10/23/24 1,000 mcg sublingual tablet .COMPLEX #90 tabs ondansetron HCl 4 mg tablet See Rx Instructions .Route 12/22/24 .COMPLEX #30 tabs alprazolam 1 mg tablet 1 mg PO QID #120 tabs amitriptyline 50 mg tablet See Rx Instructions .Route 02/11/25 .COMPLEX #60 tabs Allergies Allergy/AdvReac Type Severity Reaction Status Date / Time NSAIDS (Non-Steroidal Allergy Intermediate Other Verified 12/22/24 10:53 Anti-Inflamma [facility] Disclaimer: The information contained in this section may have been updated after the patient was seen, as this information can be updated by other users. 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 Insomnia Polysubstance use disorder Chronic pain Right foot pain Anxiety Social History Smoking Status: Current every day smoker tobacco type: cigarettes packs per day: 1 alcohol intake: never substance use type: former substance user, marijuana, heroin and opiates current occupational status: other Travel in the last 8 weeks?: None household members: family housing: house Have you lived/traveled outside US in past 30 days?: No Contact w/someone who lives/traveled outside US past 30 days?: No Exposure to someone with infectious disease in past 14 days?: No Do you have a fever (greater than 100.4 F or 38 C)?: No Have you tested positive for COVID-19?: No Exposed to someone with COVID-19 in past 14 days?: No Do you have a sore throat?: No Do you have a cough?: No Do you have any weakness?: No Do you have any diarrhea?: No Are you experiencing any unusual bleeding?: No Do you have any muscle aches/pain?: No Do you have any abdominal pain?: No Are you experiencing loss of taste or smell?: No Other Medical History Have you received the Flu Vaccine for this season: No Have you received the Pneumonia Vaccine: No ROS Obtained: Yes All systems reviewed & no additional complaints except as documented and Yes Systems reviewed as appropriate & no additional complaints except as documented Constitutional Constitutional: Reports system reviewed and no additional complaints, except as documented, Reports as per HPI, Reports body ache, Reports fatigue, Reports lethargy and Reports malaise Eyes Eyes: Reports system reviewed and no additional complaints, except as documented and Reports as per HPI ENT Ears, Nose, Mouth, and Throat: Reports system reviewed and no additional complaints, except as documented and Reports as per HPI Cardiovascular Cardiovascular: Reports chest pain Respiratory Respiratory: Reports shortness of breath Gastrointestinal Gastrointestingal: Reports melena; Denies hematemesis or vomiting Musculoskeletal Musculoskeletal: Reports system reviewed and no additional complaints, except as documented and Reports as per HPI Neurologic Neurologic: Reports system reviewed and no additional complaints, except as documented and Reports as per HPI Endocrine Endocrine: Reports fatigue Physical Exam General General appearance: alert and in distress Head Head exam: atraumatic and normocephalic Eye Eye exam: Present PERRL and EOMI Chest Chest inspection: Present normal inspection Respiratory Respiratory exam: Present normal lung sounds bilaterally Cardiovascular Cardiovascular exam: Present tachycardia Abdominal Exam Abdominal exam: Present soft; Absent tenderness Back Exam Back exam: Present normal inspection Neurological Exam Neurological exam: Present alert and oriented X3 Psychiatric Psychiatric exam: Present normal affect Skin Skin exam: Present pallor Medical Decision Making Medical Records Medical records reviewed: Yes I reviewed the patient's medical records. Screening: Per USPSTF and CDC recommendations, given the prevalence of disease in our region, it is our hospital?s policy to screen for HIV and viral Hepatitis for all patients aged 18 and over and those with ongoing risk factors. [place] Inquiry Pt receiving controlled substance: No Vital Signs: 02/21/25 11:41 02/21/25 12:02 02/21/25 12:32 Temperature 98.1 F Temperature Source Oral Pulse Rate 94 H 89 Pulse Rate [Right] 98 H Respiratory Rate 22 22 14 Blood Pressure 114/72 109/78 L Blood Pressure [Right Arm] 148/82 H Blood Pressure Mean [Right Arm] 104 02 Sat by Pulse Oximetry 99 89 L 94 L Oxygen Delivery Method Room Air Lab Data Lab Results 02/21/25 11:36: WBC 8.4, RBC 3.59 L, Hgb 11.1 L, Hct 34.6 L, MCV 96.4 H, MCH 30.9, MCHC 32.1, RDW 12.9, Plt Count 207, MPV 9.6, Neut % (Auto) 58.9, Lymph % (Auto) 30.4, [place] % (Auto) 6.6, Eos % (Auto) 2.5, Baso % (Auto) 0.6, Neut # (Auto) 4.9, Lymph # (Auto) 2.5, [place] # (Auto) 0.6, Eos # (Auto) 0.2, Baso # (Auto) 0.1, PT 12.0, INR 1.09, D-Dimer 0.59 H, Sodium 142, Potassium 4.6, Chloride 107, Carbon Dioxide 28, Anion Gap 11.6, BUN 50 H, Creatinine 0.90, Estimated Creat Clear 171, Estimated GFR 93, Est GFR ( Amer) 112, Glucose 111 H, Calcium 8.9, Total Bilirubin 1.8 H, AST 39, ALT 22, Alkaline Phosphatase 61, Troponin I 0.10 H, Total Protein 6.7, Albumin 4.1, Globulin 2.6, Albumin/Globulin Ratio 1.6, Plasma/Serum Alcohol < 10, HCV Ab KATALINA w/Rflx PCR Qn Negative, HIV Ag/Ab Combo Qual Negative 02/21/25 11:36 02/21/25 11:36 Orders (Tests/Meds): ED MEDICATIONS Generic Name Dose Route Start Last Admin Trade Name Freq PRN Reason Stop Dose Admin Lactated Ringer's 1,000 mls @ 50 mls/hr 02/21/25 13:30 Lactated Ringer's 1000 Ml Bag IV 03/23/25 13:29 .Q20H ROGER Ondansetron HCl 4 mg 02/21/25 13:22 Ondansetron 4mg/2ml Vial IV 03/23/25 13:21 Q8HP PRN Nausea Pantoprazole Sodium 40 mg 02/21/25 21:00 Pantoprazole 40mg Vial IV 03/23/25 20:59 BID ROGER Sodium Chloride 10 ml 02/21/25 13:24 Sodium Chloride 0.9% 10ml Vial IV 03/23/25 13:23 NEEDED PRN dilute protonix Discontinued Medications Generic Name Dose Route Start Last Admin Trade Name Freq PRN Reason Stop Dose Admin Lactated Ringer's 1,000 mls @ 999 mls/hr 02/21/25 11:47 02/21/25 13:06 Lactated Ringer's 1000 Ml Bag IV 02/21/25 12:47 999 mls/hr .Q1H1M ONE Infusion Ceftriaxone Sodium 1 gm/ 50 mls @ 100 mls/hr 02/21/25 11:53 02/21/25 13:05 Sodium Chloride IV 02/21/25 12:22 Infused ONCE ONE Infusion ORDERS Category Date Time Status Type and Screen Stat BBK 02/21/25 11:47 Ordered XR chest portable Stat Exams 02/21/25 11:47 Completed Complete Blood Count Auto Diff Stat Lab 02/21/25 11:36 Completed Comprehensive Metabolic Panel Stat Lab 02/21/25 11:36 Completed D-Dimer Stat Lab 02/21/25 11:36 Completed Ethanol [Ethyl Alcohol] Stat Lab 02/21/25 11:36 Completed HIV Combo Stat Lab 02/21/25 11:36 Completed Hepatitis C Ab Qual. W/ RFX Stat Lab 02/21/25 11:36 Completed Lactic Acid Stat Lab 02/21/25 11:52 Ordered Prothrombin Time INR Stat Lab 02/21/25 11:36 Completed Troponin I Q3H Lab 02/21/25 15:00 Ordered Troponin I Q3H Lab 02/21/25 18:00 Ordered Troponin I Stat Lab 02/21/25 11:36 Completed Medical Decision Narrative: 44-year-old male with history of extensive alcohol abuse presenting with multiple episodes of dark tarry stool as well as generalized weakness, as well as initial shortness of breath and chest pain. Arrives tachycardic and hypotensive. Vital signs improved after IV fluids. D-dimer 0.59. PE excluded by years criteria. No need for CT PE exam. Elevated troponin. Will obtain repeat Hemoglobin dropped to 11. Baseline is 16. Bilirubin 1.8. Elevated Due to suspected upper GI bleed in the setting of heavy alcohol abuse and dark tarry stool, given dose of Rocephin and Protonix. Gave dose of Rocephin due to initial concern for liver disease given history of alcohol abuse. Due to drop in hemoglobin and initial tachycardia in the setting of multiple episodes of melanotic stool, will need to be admitted for upper GI scope and hemoglobin trending. I will discuss with hospital medicine. Patient currently hemodynamic stable in no acute distress. Critical Care Critical Care Time Critical Care Time: No
--- NOTE | 2025-02-21 13:15 | PC.NURSE ---
called house sup for bed
--- NOTE | 2025-02-21 13:26 | PC.NURSE ---
report called to Medardo JULIAN
[2025-02-21 13:56] LABS: Hematocrit 29.2 % (42.0-52.0)
[2025-02-21 14:05] LABS: Hemoglobin 9.5 g/dL (14.1-18.0)
[2025-02-21] MEDS: LACTATED RINGERS 1000ML 1,000 ML 50 ML IV (14:52)
[2025-02-21 15:26] LABS: Troponin I 0.08 ng/ml (0.00-0.034)
--- NOTE | 2025-02-21 15:40 | PC.NURSE ---
Home meds verified w/rx bottles then sent home w/family
--- NOTE | 2025-02-21 17:00 | EXP.HP ---
History of Present Illness *Admission Date: 02/21/25 *Reason for visit:: SOB *History of present illness: Patient is a 44-year-old male with past medical history of alcohol abuse who presents to the hospital due to generalized weakness, shortness of breath as well as melanotic stools. Patient mentions he drinks about a pint a day, his last drink was yesterday at 5 PM, he denies abdominal pain chest pain, nausea vomiting fevers chills diarrhea constipation dysuria. On further evaluation patient was found to be positive for low hemoglobin and then his baseline. Patient denied withdrawing from alcohol. [facility] Disclaimer: The information contained in this section may have been updated after the patient was seen, as this information can be updated by other users. 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 Insomnia Polysubstance use disorder Chronic pain Right foot pain Anxiety Social History (Updated 02/21/25 @ 15:32 by Kelsea Ramachandran RN) Smoking Status: Current some day smoker tobacco type: cigarettes packs per day: 1 alcohol intake: current substance use type: former substance user, marijuana, heroin and opiates current occupational status: other Travel in the last 8 weeks?: None household members: family housing: house Have you lived/traveled outside US in past 30 days?: No Contact w/someone who lives/traveled outside US past 30 days?: No Exposure to someone with infectious disease in past 14 days?: No Do you have a fever (greater than 100.4 F or 38 C)?: No Have you tested positive for COVID-19?: No Exposed to someone with COVID-19 in past 14 days?: No Do you have a sore throat?: No Do you have a cough?: No Do you have any weakness?: No Are you experiencing any nausea/vomitting?: No Do you have any diarrhea?: No Are you experiencing any unusual bleeding?: No Do you have any muscle aches/pain?: No Do you have any abdominal pain?: No Are you experiencing loss of taste or smell?: No Other Medical History Have you received the Flu Vaccine for this season: No Have you received the Pneumonia Vaccine: No Review of Systems Review of Systems Review of systems:: pertinent systems reviewed and negative unless documented below *Neurologic Neurologic: Reports system reviewed and no additional complaints, except as documented and Reports as per [facility] Meds Home Medications and Allergies Home Medications ?Medication ?Instructions ?Recorded ?Confirmed ?Type cholecalciferol (vitamin D3) 125 125 mcg PO DAILY 60 days #60 caps 10/23/24 02/21/25 Rx mcg (5,000 unit) capsule buprenorphine 8 mg-naloxone 2 mg 1 film sublingual DAILY 11/25/24 02/21/25 History sublingual film cyclobenzaprine 5 mg tablet 5 mg PO HS 11/25/24 02/21/25 History alprazolam 1 mg tablet 1 mg PO QID #120 tabs 02/11/25 02/21/25 Rx amitriptyline 50 mg tablet 50 mg PO HS 02/21/25 02/21/25 History cyanocobalamin (vitamin B-12) 1,000 mcg PO DAILY 02/21/25 02/21/25 History 1,000 mcg sublingual tablet ondansetron 4 mg disintegrating 4 mg PO Q8H PRN Nausea 02/21/25 02/21/25 History tablet New Prescriptions to Start Prescriptions: Allergies Allergy/AdvReac Type Severity Reaction Status Date / Time NSAIDS (Non-Steroidal Allergy Intermediate Other Verified 12/22/24 10:53 Anti-Inflamma acetaminophen (From Tylenol) AdvReac GI BLEED Verified 02/21/25 15:24 Exam Data for Last 24 hours Vital signs and Labs for Last 24 Hours: Temp Pulse Resp BP Pulse Ox O2 Del Method 98.2 F 99 H 16 114/56 L 97 Room Air 02/21/25 16:00 02/21/25 16:00 02/21/25 16:00 02/21/25 16:00 02/21/25 16:00 02/21/25 16:52 Laboratory Results - last 24 hr 02/21/25 11:36: WBC 8.4, RBC 3.59 L, Hgb 11.1 L, Hct 34.6 L, MCV 96.4 H, MCH 30.9, MCHC 32.1, RDW 12.9, Plt Count 207, MPV 9.6, Neut % (Auto) 58.9, Lymph % (Auto) 30.4, [place] % (Auto) 6.6, Eos % (Auto) 2.5, Baso % (Auto) 0.6, Neut # (Auto) 4.9, Lymph # (Auto) 2.5, [place] # (Auto) 0.6, Eos # (Auto) 0.2, Baso # (Auto) 0.1, PT 12.0, INR 1.09, D-Dimer 0.59 H, Sodium 142, Potassium 4.6, Chloride 107, Carbon Dioxide 28, Anion Gap 11.6, BUN 50 H, Creatinine 0.90, Estimated Creat Clear 171, Estimated GFR 93, Est GFR ( Amer) 112, Glucose 111 H, Calcium 8.9, Total Bilirubin 1.8 H, AST 39, ALT 22, Alkaline Phosphatase 61, Troponin I 0.10 H, Total Protein 6.7, Albumin 4.1, Globulin 2.6, Albumin/Globulin Ratio 1.6, Plasma/Serum Alcohol < 10, HCV Ab KATALINA w/Rflx PCR Qn Negative, HIV Ag/Ab Combo Qual Negative 02/21/25 13:45: Hgb 9.5 L D, Hct 29.2 L, Lactate 1.2, Blood Type O Negative, Antibody Screen Negative 02/21/25 15:00: Troponin I 0.08 H I & O for Last 24 hours: Intake & Output 02/18/25 02/19/25 02/20/25 02/21/25 23:59 23:59 23:59 23:59 Intake Total 425 / 425 Output Total 450 / 450 Balance - Weight 113.398 kg Constitutional Constitutional: no acute distress *Routine HEENT Exam Head: Present normocephalic Eye: Present EOMI and PERRL ENT: Present mucous membranes moist *Routine Neck Exam Neck: Present supple; Absent lymphadenopathy *Routine Respiratory Exam Respiratory: Present CTA bilaterally *Routine Cardiovascular Exam Cardiovascular: Present RRR *Routine Abdominal Exam Abdominal: Present soft and normoactive bowel sounds; Absent tenderness *Routine Rectal Exam Rectal:: deferred *Routine Genitalia Exam Genitalia:: deferred *Routine Extremities Exam Extremities: Absent cyanosis, clubbing or edema *Routine Skin Exam Skin: Present warm; Absent rash *Routine Neurological Exam Neurological: Present alert and oriented X3 Assessment and Plan *Assessment and plan (1) Anemia: Status: Acute Qualifiers: Anemia type: unspecified type Qualified Code(s): D64.9 - Anemia, unspecified Category: Medical Code(s): D64.9 - Anemia, unspecified (2) Black tarry stools: Status: Acute Category: Medical Code(s): K92.1 - Melena (3) Chronic pain: Status: Acute Category: Medical Code(s): G89.29 - Other chronic pain (4) History of substance abuse: Status: Acute Category: Medical Code(s): F19.11 - Other psychoactive substance abuse, in remission Plan Patient is a 44-year-old male with past medical history of alcohol abuse who presents to the hospital due to generalized weakness, shortness of breath as well as melanotic stools. Patient mentions he drinks about a pint a day, his last drink was yesterday at 5 PM, he denies abdominal pain chest pain, nausea vomiting fevers chills diarrhea constipation dysuria. On further evaluation patient was found to be positive for low hemoglobin and then his baseline. Patient denied withdrawing from alcohol. Assessment and plan Generalized weakness Melena Suspect upper GI bleed Start IV Protonix IV fluids Monitor hemoglobin Check a stool occult Consult GI GI liquid diet for now History of alcohol abuse Substance abuse Monitor for alcohol withdrawal CIWA assessment with as needed Ativan Chronic medical conditions Substance abuse disorder Chronic pain Anxiety - Resume home medications when confirmed DVT prophylaxis-SCDs only
[2025-02-21 18:27] LABS: Troponin I 0.06 ng/ml (0.00-0.034)
[2025-02-21 21:38] LABS: Hematocrit 29.5 % (42.0-52.0); Hemoglobin 9.7 g/dL (14.1-18.0)
[2025-02-21] MEDS: BUPRENORPHINE/NALOXONE 8MG/2MG ODT 1 EACH SL (21:39)
[2025-02-21] MEDS: CYCLOBENZAPRINE 10MG TABLET 5 MG PO (21:39)
[2025-02-21] MEDS: SODIUM CHLORIDE 0.9% 10ML VIAL 10 ML IV (21:43)
[2025-02-21] MEDS: PANTOPRAZOLE 40MG VIAL 40 MG IV (21:43)
[2025-02-21] MEDS: AMITRIPTYLINE 50MG TABLET 50 MG PO (21:51)
[2025-02-22 04:00] VITALS: BP 109/49; PULSE 69; RESP 16; TEMP 36.7; O2SAT 96; BMI 32.2
[2025-02-22 06:18] LABS: Hematocrit 23.9 % (42.0-52.0); Immature Granulocytes % 0.7 %; Mean Corpuscular HGB Conc 33.5 g/dL (31.8-35.4); Mean Corpuscular Hemoglobin 31.5 pg (27.0-31.2); Mean Corpuscular Volume 94.1 fl (80-94); Nucleated Red Blood Cells % 0 %; Platelet Count 142 K/mm3 (142-424); Red Blood Count 2.54 M/mm3 (4.60-6.20); Red Cell Distribution Width-SD 43.9 fL; White Blood Count 4.2 K/mm3 (4.8-10.8)
[2025-02-22 06:26] LABS: Hemoglobin 8.2 g/dL (14.1-18.0)
--- NOTE | 2025-02-22 06:33 | PC.NURSE ---
Pt. was admitted to the med/surg floor yesterday for GI bleed. Pt. is alert and orientated x 4. Pt. is on room air. Pt. did c/o liquid black stools last night. Pt up and ambulating in the room. Pt. took a shower last night. Pt. slept well overnight. IV fluids infusing. Pt. to get a GI consult. also trending HGB, personal items and call arrieta in reach. Bed in low and locked position. Safety measures in place.
[2025-02-22 06:37] LABS: Chloride 109 mmol/L (98-107); Potassium 3.3 mmoL/L (3.5-5.1); Sodium 140 mmol/L (136-145)
[2025-02-22 06:39] LABS: Blood Urea Nitrogen 36 mg/dl (9-20); Creatinine Clearance Estimated 171 mL/min (50-200); Creatinine,Serum 0.90 mg/dl (0.66-1.25); Estimated Glomerular Filt Rate 93 ml/min (>60); GFR (African American) 112 ML/MIN (>60)
[2025-02-22 06:40] LABS: Anion Gap 7.3 mEq/L (5-15); Calcium 7.9 mg/dl (8.4-10.2); Carbon Dioxide 27 mmol/L (22.0-30.0); Glucose 87 mg/dl (74-100)
[2025-02-22 07:47] VITALS: BP 101/52; PULSE 64; RESP 17; TEMP 36.9; O2SAT 99
--- NOTE | 2025-02-22 08:21 | HMH.PHAINT1 ---
Pharmacy Intervention Comments: COMPARED MED LIST TO FILL HX AND KATHY.
[2025-02-22] MEDS: BUPRENORPHINE/NALOXONE 8MG/2MG ODT 2.5 EACH SL (08:35)
[2025-02-22] MEDS: LACTATED RINGERS 1000ML 1,000 ML 50 ML IV (08:36)
[2025-02-22] MEDS: PANTOPRAZOLE 40MG VIAL 40 MG IV (08:40)
[2025-02-22 16:00] VITALS: BP 151/81; PULSE 83; RESP 18; TEMP 36.8; O2SAT 98
--- NOTE | 2025-02-22 16:31 | PC.NURSE ---
Aox 4, up ad jose, ciwa q 4 hours, on RA, 20g L FA LR @ 50, GI consulted for Sunday.
--- NOTE | 2025-02-22 17:03 | EXP.PN ---
Subjective *Date: 02/22/25 *Time: 17:03 Interval history: complains of melena, denied Abdomina pain, nauseam vomiting, tolerating clear liquid diet Exam Data for Last 24 hours Vital signs and Labs for Last 24 Hours: Temp Pulse Resp BP Pulse Ox O2 Del Method 98.3 F 83 18 151/81 H 98 Room Air 02/22/25 16:00 02/22/25 16:00 02/22/25 16:00 02/22/25 16:00 02/22/25 16:00 02/22/25 16:00 Laboratory Results - last 24 hr 02/21/25 17:50: Troponin I 0.06 H 02/21/25 21:24: Hgb 9.7 L, Hct 29.5 L 02/22/25 05:40: WBC 4.2 L D, RBC 2.54 L D, Hgb 8.2 L D, Hct 23.9 L, MCV 94.1 H, MCH 31.5 H, MCHC 33.5, RDW 12.9, Plt Count 142 D, MPV 9.8, Neut % (Auto) 51.9, Lymph % (Auto) 35.4, [place] % (Auto) 8.3, Eos % (Auto) 2.8, Baso % (Auto) 0.9, Neut # (Auto) 2.2, Lymph # (Auto) 1.5, [place] # (Auto) 0.4, Eos # (Auto) 0.1, Baso # (Auto) 0.0, Sodium 140, Potassium 3.3 L D, Chloride 109 H, Carbon Dioxide 27, Anion Gap 7.3, BUN 36 H D, Creatinine 0.90, Estimated Creat Clear 171, Estimated GFR 93, Est GFR ( Amer) 112, Glucose 87 D, Calcium 7.9 L I & O for Last 24 hours: Intake & Output 02/19/25 02/20/25 02/21/25 02/22/25 23:59 23:59 23:59 23:59 Intake Total 965 / 1205 1246.667 / 1246.667 Output Total 450 / 450 0 / 0 Balance 515 / 755 1246.667 / 1246.667 Weight 113.398 kg 126.325 kg Constitutional Constitutional: no acute distress *Routine HEENT Exam Head: Present normocephalic Eye: Present EOMI and PERRL ENT: Present mucous membranes moist *Routine Neck Exam Neck: Present supple; Absent lymphadenopathy *Routine Respiratory Exam Respiratory: Present CTA bilaterally *Routine Cardiovascular Exam Cardiovascular: Present RRR *Routine Abdominal Exam Abdominal: Present soft and normoactive bowel sounds; Absent tenderness *Routine Extremities Exam Extremities: Absent cyanosis, clubbing or edema *Routine Skin Exam Skin: Present warm; Absent rash *Routine Neurological Exam Neurological: Present alert and oriented X3 Assessment and Plan *Assessment and plan (1) Anemia: Status: Acute Qualifiers: Anemia type: unspecified type Qualified Code(s): D64.9 - Anemia, unspecified Category: Medical Code(s): D64.9 - Anemia, unspecified (2) Black tarry stools: Status: Acute Category: Medical Code(s): K92.1 - Melena (3) Chronic pain: Status: Acute Category: Medical Code(s): G89.29 - Other chronic pain (4) History of substance abuse: Status: Acute Category: Medical Code(s): F19.11 - Other psychoactive substance abuse, in remission Plan Patient is a 44-year-old male with past medical history of alcohol abuse who presents to the hospital due to generalized weakness, shortness of breath as well as melanotic stools. Patient mentions he drinks about a pint a day, his last drink was yesterday at 5 PM, he denies abdominal pain chest pain, nausea vomiting fevers chills diarrhea constipation dysuria. On further evaluation patient was found to be positive for low hemoglobin and then his baseline. Patient denied withdrawing from alcohol. Assessment and plan Generalized weakness Melena Suspect upper GI bleed Anemia of acute blood loss switch to Protonix gtt IV fluids Monitor hemoglobin Consult GI Clear liquid diet for now NPO after MN, possible EGD tomorrow Hb dropped to 8 from 11 in 24hrs, will give 1 unit of blood, patient and family consented History of alcohol abuse Substance abuse Monitor for alcohol withdrawal CIWA assessment with as needed Ativan Chronic medical conditions Substance abuse disorder Chronic pain Anxiety - Resume home medications when confirmed DVT prophylaxis-SCDs only DC planning - NPO after MN, possible EGD tomorrow, monitor HnH
[2025-02-22] MEDS: PANTOPRAZOLE SODIUM 80 MG in 0.9 % SODIUM CHLORIDE 100 ML 10 MG IV (17:22)
[2025-02-22 17:46] LABS: Hematocrit 25.0 % (42.0-52.0); Hemoglobin 8.4 g/dL (14.1-18.0); Mean Corpuscular HGB Conc 33.6 g/dL (31.8-35.4); Mean Corpuscular Hemoglobin 31.7 pg (27.0-31.2); Mean Corpuscular Volume 94.3 fl (80-94); Platelet Count 157 K/mm3 (142-424); Red Blood Count 2.65 M/mm3 (4.60-6.20); White Blood Count 4.2 K/mm3 (4.8-10.8)
[2025-02-22 18:22] LABS: Total Cells Counted 100
[2025-02-22 18:23] LABS: RBC Morphology Normal
[2025-02-22] MEDS: ACETAMINOPHEN 500MG TAB 500 MG PO (18:35)
--- NOTE | 2025-02-22 18:41 | PC.NURSE ---
Pt. refused blood at this time and would like to wait for another cbc check.
--- NOTE | 2025-02-22 18:46 | PC.NURSE ---
Dr. Jacques cancel blood transfusion.
[2025-02-22 19:10] LABS: Iron 83 ug/dL (49-181)
[2025-02-22 19:19] LABS: Total Iron Binding Capacity 224 ug/dL (261-462)
[2025-02-22 19:48] LABS: Ferritin 147 ng/ml (17.9-464)
[2025-02-22 20:00] VITALS: BP 113/80; PULSE 77; RESP 14; TEMP 36.7; O2SAT 100
[2025-02-22 20:25] LABS: Vitamin B12 216 pg/mL (239-931)
[2025-02-22] MEDS: CYCLOBENZAPRINE 10MG TABLET 5 MG PO (21:06)
[2025-02-22] MEDS: AMITRIPTYLINE 50MG TABLET 50 MG PO (21:06)
[2025-02-22 22:18] LABS: Folate 34.90 ng/mL
[2025-02-23] VITALS (26 sets, daily range): BP systolic 96–153; BP diastolic 51–99; PULSE 63–90; RESP 12–18; TEMP 36.4–37; O2SAT 93–100; BMI 32.3
[2025-02-23] MEDS: LACTATED RINGERS 1000ML 1,000 ML 50 ML IV (00:19)
[2025-02-23] MEDS: PANTOPRAZOLE SODIUM 80 MG in 0.9 % SODIUM CHLORIDE 100 ML 10 MG IV ×3 (02:06→20:11)
--- NOTE | 2025-02-23 03:56 | PC.NURSE ---
Pt. is alert and orientated x 4. Pt. is on room air. Pt. was admitted for GI bleed. P was supposed to get blood transfusion yesterday and his HGB stabalized. The transfusion was cancelled. Pt. has a GI consult with Dr. Cabral today and will get an EGD scope. Pt. has been NPO since midnight, Pt. has IV fluids infusing and a Pantoprazole drip infusion. Pt. has been sleeping well. Pt. has a history of drinking and drug use. CIWA scores 0. Personal items and call arrieta in reach, Bed in low and locked position. Safety measures in place.
[2025-02-23 06:25] LABS: Hematocrit 21.9 % (42.0-52.0); Immature Granulocytes % 0.7 %; Mean Corpuscular HGB Conc 32.4 g/dL (31.8-35.4); Mean Corpuscular Hemoglobin 30.5 pg (27.0-31.2); Mean Corpuscular Volume 94.0 fl (80-94); Nucleated Red Blood Cells % 0 %; Platelet Count 155 K/mm3 (142-424); Red Blood Count 2.33 M/mm3 (4.60-6.20); Red Cell Distribution Width-SD 44.4 fL; White Blood Count 2.7 K/mm3 (4.8-10.8)
[2025-02-23 06:32] LABS: Chloride 107 mmol/L (98-107); Potassium 3.7 mmoL/L (3.5-5.1); Sodium 138 mmol/L (136-145)
[2025-02-23 06:35] LABS: Anion Gap 5.7 mEq/L (5-15); Blood Urea Nitrogen 18 mg/dl (9-20); Calcium 8.3 mg/dl (8.4-10.2); Carbon Dioxide 29 mmol/L (22.0-30.0); Creatinine Clearance Estimated 192 mL/min (50-200); Creatinine,Serum 0.90 mg/dl (0.66-1.25); Estimated Glomerular Filt Rate 93 ml/min (>60); GFR (African American) 112 ML/MIN (>60); Glucose 93 mg/dl (74-100)
[2025-02-23 06:38] LABS: Hemoglobin 7.3 g/dL (14.1-18.0)
[2025-02-23] MEDS: BUPRENORPHINE/NALOXONE 8MG/2MG ODT 2.5 EACH SL (08:34)
--- NOTE | 2025-02-23 08:35 | CA_ITS ---
APPROVED REPORT EXAM: Comprehensive 2D, Doppler, and color-flow Echocardiogram Silk Conditioner: Desi Lobo RT(R) Ht: 6 ft 6 in Wt: 250lbs BSA: 2.48 BP: 109/78 mmHg Indications: NSTEMI, ETOH use disorder 2D Dimensions LVEF (Jacobson's) 51.70 % M: 52 - 72 LV Volume 176.10 mL M: 62 - 150 LV Volume Index 71.0 mL/m2 M: 34 - 74 EF AP4 55.70 % EF AP2 46.7 % EF BP 51.7 % GL Strain -20.2 % M-Mode Dimensions RVDd 3.91 cm (0.9-2.6) LA Diam 3.71 cm (1.9-4.0) LVDd 4.76 cm (3.5-5.7) LVDs 3.36 cm (3.5-5.7) IVSd 0.89 cm (0.6-1.1) PWd 0.89 cm (0.6-1.1) EF (Teich) 56.30% FS 29.40% EDV (Teich) 105.40 mL ESV (Teich) 46.10 mL LV Diastology E Decel Time 187 (160-240 msec) E/A Ratio 1.4 Mitral Valve MV E Max Fabio. 91.0 (40-130 cm/s) MV A Velocity 63.0 (40-130 cm/s) E/A Ratio 1.45 MV PHT 55.0 ms Left Ventricle The left ventricle is normal size. Left ventricular systolic function is normal. The left ventricular ejection fraction is within the normal range. There is normal left ventricular wall thickness. There is normal LV segmental wall motion. The left ventricular diastolic function is normal. LVEF is 55% Right Ventricle The right ventricle is normal size. The right ventricular systolic function is normal. Atria The left atrium size is normal. The right atrium size is normal. There is no color Doppler evidence of interatrial shunt. Aortic Valve The aortic valve opens well. There is no hemodynamically significant aortic valvular stenosis. No aortic regurgitation is present. Mitral Valve The mitral valve is normal in structure. No evidence of mitral valve stenosis. Trace mitral regurgitation is present. Tricuspid Valve The tricuspid valve leaflets are thin and pliable. Trace tricuspid regurgitation. There is insufficient TR jet to estimate RVSP. Pulmonic Valve The pulmonary valve is grossly normal in structure. Trace pulmonic valve regurgitation is present. Great Vessels The aortic root is normal in size. IVC is normal in size and collapses >50% with inspiration. Pericardium There is no pericardial effusion. Other Information Study Quality: Fair Conclusion Normal biventricular systolic function. No significant valvular stenosis or regurgitation. Electronically signed by : Alice Villegas MD 02/23/2025 12:24:04
[2025-02-23] MEDS: ACETAMINOPHEN 500MG TAB 500 MG PO ×3 (08:39→17:21)
--- NOTE | 2025-02-23 09:35 | EXP.CARD.CON ---
History of Present Illness History of Present Illness Consult date: 02/23/25 Requesting physician: Herb Escobedo Chief complaint: weakness, sob and melanoitc stools History of present illness: Mp Resendiz is a 44-year-old gentleman with a past medical history of alcohol abuse who drinks 1 pint per day who presented to emergency department with complaints of generalized weakness, shortness of breath and melena. He reports his stools have been black for quite a while now. He denies abdominal pain, nausea/vomiting, fever, chills, diarrhea, constipation or dysuria. Upon presentation to emergency department EKG showed sinus tachycardia at a rate of 102. Initial hemoglobin on presentation was 11.1 (baseline 14- 16), D-dimer was elevated at 0.59, initial troponin 0.1 trending down to 0.06. Patient was admitted for possible GI bleed. He has been on the fence about receiving a blood transfusion so as of today it has been on hold. Hemoglobin continues to drop and is 7.3 this morning. Echocardiogram is pending. [facility] Disclaimer: The information contained in this section may have been updated after the patient was seen, as this information can be updated by other users. 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 Insomnia Polysubstance use disorder Chronic pain Right foot pain Anxiety Social History (Updated 02/21/25 @ 15:32 by Kelsea Ramachandran RN) Smoking Status: Current some day smoker tobacco type: cigarettes packs per day: 1 alcohol intake: current substance use type: former substance user, marijuana, heroin and opiates current occupational status: other Travel in the last 8 weeks?: None household members: family housing: house Have you lived/traveled outside US in past 30 days?: No Contact w/someone who lives/traveled outside US past 30 days?: No Exposure to someone with infectious disease in past 14 days?: No Do you have a fever (greater than 100.4 F or 38 C)?: No Have you tested positive for COVID-19?: No Exposed to someone with COVID-19 in past 14 days?: No Do you have a sore throat?: No Do you have a cough?: No Do you have any weakness?: No Are you experiencing any nausea/vomitting?: No Do you have any diarrhea?: No Are you experiencing any unusual bleeding?: No Do you have any muscle aches/pain?: No Do you have any abdominal pain?: No Are you experiencing loss of taste or smell?: No Review of Systems Review of Systems Review of systems:: pertinent systems reviewed and negative unless documented below Constitutional Constitutional: Reports weakness *Cardiovascular Cardiovascular: Reports dyspnea *Respiratory Respiratory: Reports dyspnea *Neurologic Neurologic: Reports system reviewed and no additional complaints, except as documented, Reports as per HPI and Reports weakness Exam Data for Last 24 hours Vital signs and Labs for Last 24 Hours: Temp Pulse Resp BP Pulse Ox O2 Del Method O2 Flow Rate 98 F 69 16 129/71 95 Room Air 1 02/23/25 08:55 02/23/25 08:55 02/23/25 08:55 02/23/25 08:55 02/23/25 08:55 02/23/25 09:00 02/23/25 04:00 Laboratory Results - last 24 hr 02/21/25 13:45: Blood Type O Negative, Antibody Screen Negative, Crossmatch (AHG) See Detail 02/22/25 17:30: WBC 4.2 L, RBC 2.65 L, Hgb 8.4 L, Hct 25.0 L, MCV 94.3 H, MCH 31.7 H, MCHC 33.6, RDW 13.0, Plt Count 157, MPV 9.4, Neut % (Auto) 51.4, Lymph % (Auto) 36.5, [place] % (Auto) 6.2, Eos % (Auto) 4.3, Baso % (Auto) 0.9, Neut # (Auto) 2.2, Lymph # (Auto) 1.5, [place] # (Auto) 0.3, Eos # (Auto) 0.2, Baso # (Auto) 0.0, Total Counted 100, Neutrophils % (Manual) 60, Lymphocytes % (Manual) 31, Monocytes % (Manual) 4, Eosinophils % (Manual) 5 H, Platelet Estimate Normal, RBC Morphology Normal 02/22/25 18:35: Iron 83, TIBC 224 L, Iron Saturation 37.90195, Ferritin 147, Vitamin B12 216 L, Folate 34.90 02/22/25 : Blood Type Confirm O Negative 02/23/25 05:45: WBC 2.7 L D, RBC 2.33 L, Hgb 7.3 L D, Hct 21.9 L, MCV 94.0, MCH 30.5, MCHC 32.4, RDW 13.0, Plt Count 155, MPV 9.6, Neut % (Auto) 41.1, Lymph % (Auto) 43.8, [place] % (Auto) 7.4, Eos % (Auto) 6.3, Baso % (Auto) 0.7, Neut # (Auto) 1.1 L, Lymph # (Auto) 1.2, [place] # (Auto) 0.2, Eos # (Auto) 0.2, Baso # (Auto) 0.0, Sodium 138, Potassium 3.7, Chloride 107, Carbon Dioxide 29, Anion Gap 5.7, BUN 18 D, Creatinine 0.90, Estimated Creat Clear 192, Estimated GFR 93, Est GFR ( Amer) 112, Glucose 93, Calcium 8.3 L I & O for Last 24 hours: Intake & Output 02/20/25 02/21/25 02/22/25 02/23/25 23:59 23:59 23:59 23:59 Intake Total 965 / 1205 2650.001 / 3150.001 587.333 / 587.333 Output Total 450 / 450 0 / 0 0 / 0 Balance 515 / 755 2650.001 / 3150.001 587.333 / 587.333 Weight 250 lb 278 lb 8 oz 279 lb 8.738 oz Constitutional Constitutional: no acute distress Comments: pale *Routine Respiratory Exam Respiratory: Present CTA bilaterally and symmetric chest movement *Routine Cardiovascular Exam Cardiovascular: Present RRR, Normal S1 and Normal S2 *Routine Abdominal Exam Abdominal: Present soft and normoactive bowel sounds; Absent tenderness *Routine Extremities Exam Extremities: Present full ROM and normal capillary refill; Absent edema *Routine Skin Exam Skin: Present intact, dry and warm Detailed Neck Exam: Thyroids Thyroid: Absent bruit Meds Home Medications and Allergies Home Medications ?Medication ?Instructions ?Recorded ?Confirmed ?Type cholecalciferol (vitamin D3) 125 125 mcg PO DAILY 60 days #60 caps 10/23/24 02/21/25 Rx mcg (5,000 unit) capsule buprenorphine 8 mg-naloxone 2 mg 2.5 film sublingual DAILY 11/25/24 02/22/25 History sublingual film alprazolam 1 mg tablet 1 mg PO QID #120 tabs 02/11/25 02/21/25 Rx amitriptyline 50 mg tablet 50 mg PO HS 02/21/25 02/21/25 History cyanocobalamin (vitamin B-12) 1,000 mcg PO DAILY 02/21/25 02/21/25 History 1,000 mcg sublingual tablet New Prescriptions to Start Prescriptions: Allergies Allergy/AdvReac Type Severity Reaction Status Date / Time NSAIDS (Non-Steroidal Allergy Intermediate Other Verified 12/22/24 10:53 Anti-Inflamma acetaminophen (From Tylenol) AdvReac GI BLEED Verified 02/21/25 15:24 Assessment and Plan *Assessment and plan (1) Anemia: Status: Acute Qualifiers: Anemia type: unspecified type Qualified Code(s): D64.9 - Anemia, unspecified Category: Medical Code(s): D64.9 - Anemia, unspecified (2) Black tarry stools: Status: Acute Category: Medical Code(s): K92.1 - Melena (3) Elevated troponin: Status: Acute Category: Medical Code(s): R79.89 - Other specified abnormal findings of blood chemistry Plan Elevated troponin In the setting of acute GI bleed EKG without acute ischemic changes noted Troponin 0.1 on admission trending down to 0.06 D dimer is positive-cardiology recommends cta chest to r/o PE. Patient denies chest pain Echocardiogram shows normal biventricular function and no significant stenosis or regurgitation. Anemia Melena Acute GI bleed Hemoglobin down to 7.3 today from 11.1 on admission. Will defer to primary service and GI. CV summary 02/23/2025: EF is normal. Cards recommends CTA to r/o PE. Patient is cv stable. Cardiology will sign off, please have patient follow up in cardiology clinic in 1-2 weeks for evaluation and outpatient ischemic eval.
--- NOTE | 2025-02-23 12:08 | P.PNANES_ITS ---
[facility] Disclaimer: The information contained in this section may have been updated after the patient was seen, as this information can be updated by other users. 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 Insomnia Polysubstance use disorder Chronic pain Right foot pain Anxiety Social History (Updated 02/21/25 @ 15:32 by Kelsea Ramachandran RN) Smoking Status: Current some day smoker tobacco type: cigarettes packs per day: 1 alcohol intake: current substance use type: former substance user, marijuana, heroin and opiates current occupational status: other Travel in the last 8 weeks?: None household members: family housing: house Have you lived/traveled outside US in past 30 days?: No Contact w/someone who lives/traveled outside US past 30 days?: No Exposure to someone with infectious disease in past 14 days?: No Do you have a fever (greater than 100.4 F or 38 C)?: No Have you tested positive for COVID-19?: No Exposed to someone with COVID-19 in past 14 days?: No Do you have a sore throat?: No Do you have a cough?: No Do you have any weakness?: No Are you experiencing any nausea/vomitting?: No Do you have any diarrhea?: No Are you experiencing any unusual bleeding?: No Do you have any muscle aches/pain?: No Do you have any abdominal pain?: No Are you experiencing loss of taste or smell?: No [facility] Anesthesia Checklist Patient Identification Patient Identification: Arm Band Structural Data Admitted From: Inpatient Planned Operative Procedure/s: EGD Consent for Planned Operative Procedure(s) Verified: Yes Verified Documents: Surgical Consent and History and Physical NPO Status Verified Time NPO: 00:00 Additional verifications Anesthesia Reactions: No Airway Assessment Mallampati Score:: Class II C-Spine Mobility Assessed: Yes TMJ Mobility Assessed: Yes Neurological Assessment Level of Consciousness: Awake, Alert and Appropriate Anesthesia Plan Anesthesia Risk discussed: Yes Anesthesia Plan: Verified ASA Class: III Anesthesia Type: MAC
--- NOTE | 2025-02-23 12:49 | CT_ITS ---
PROCEDURE INFORMATION: Exam: CTA Chest With Contrast Exam date and time: 02/23/2025 2:38 PM Age: 44 years old Clinical indication: Abnormal findings; Abnormal diagnostic tests; Elevated d-dimer; Additional info: Elevated d dimer TECHNIQUE: Imaging protocol: Computed tomographic angiography of the chest with contrast. Exam focused on the arteries. 3D rendering (Not supervised by radiologist): MIP and/or 3D reconstructed images were created by the technologist. Radiation optimization: All CT scans at this facility use at least one of these dose optimization techniques: automated exposure control; mA and/or kV adjustment per patient size (includes targeted exams where dose is matched to clinical indication); or iterative reconstruction. Contrast material: ISOVUE 370; Contrast volume: 70 ml; Contrast route: INTRAVENOUS (IV); COMPARISON: CT ANGIO CHEST PE PROTOCOL 02/23/2025 2:38 PM FINDINGS: Pulmonary arteries: Bolus timing is insufficient for definitive exclusion of small peripheral pulmonary emboli. No large central or segmental pulmonary emboli. Aorta: Unremarkable. No aortic aneurysm. No aortic dissection. Lungs: Left lung calcified granuloma is benign. Bilateral bronchial wall thickening. No consolidations. Mild chronic reticular interstitial scarring in the left lung base, of no concern. Pleural spaces: Unremarkable. No pneumothorax. No pleural effusion. Heart: Unremarkable. No cardiomegaly. No pericardial effusion. Mediastinal space: Scattered calcified granulomas throughout the mediastinum are benign. Lymph nodes: Unremarkable. No enlarged lymph nodes. Bones/joints: Unremarkable. No acute fracture. Soft tissues: Unremarkable. Other findings: Left hilar calcified granulomas are benign. IMPRESSION: 1. No large central or segmental pulmonary emboli. Subsegmental branches are difficult to evaluate due to suboptimal contrast bolus. 2. Acute/chronic bronchitis or reactive airways disease.
--- NOTE | 2025-02-23 13:41 | P.HP_ITS ---
History of Present Illness *Admission Date: 02/21/25 *History of present illness: Patient is a 44-year-old male with past medical history of alcohol abuse who presents to the hospital due to generalized weakness, shortness of breath as well as melanotic stools. Patient mentions he drinks about a pint a day, his last drink was yesterday at 5 PM, he denies abdominal pain chest pain, nausea vomiting fevers chills diarrhea constipation dysuria. On further evaluation patient was found to be positive for low hemoglobin and then his baseline. Patient denied withdrawing from alcohol. [facility] Disclaimer: The information contained in this section may have been updated after the patient was seen, as this information can be updated by other users. 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 Insomnia Polysubstance use disorder Chronic pain Right foot pain Anxiety Social History (Updated 02/21/25 @ 15:32 by Kelsea Ramachandran RN) Smoking Status: Current some day smoker tobacco type: cigarettes packs per day: 1 alcohol intake: current substance use type: former substance user, marijuana, heroin and opiates current occupational status: other Travel in the last 8 weeks?: None household members: family housing: house Have you lived/traveled outside US in past 30 days?: No Contact w/someone who lives/traveled outside US past 30 days?: No Exposure to someone with infectious disease in past 14 days?: No Do you have a fever (greater than 100.4 F or 38 C)?: No Have you tested positive for COVID-19?: No Exposed to someone with COVID-19 in past 14 days?: No Do you have a sore throat?: No Do you have a cough?: No Do you have any weakness?: No Are you experiencing any nausea/vomitting?: No Do you have any diarrhea?: No Are you experiencing any unusual bleeding?: No Do you have any muscle aches/pain?: No Do you have any abdominal pain?: No Are you experiencing loss of taste or smell?: No Other Medical History Have you received the Flu Vaccine for this season: No Have you received the Pneumonia Vaccine: No Review of Systems Review of Systems Review of systems (narrative): Negative Constitutional Constitutional: Reports weakness *Cardiovascular Comments: Negative *Gastrointestinal Comments: Negative *Genitourinary Comments: Negative *Musculoskeletal Comments: Negative *Neurologic Neurologic: Reports system reviewed and no additional complaints, except as documented, Reports as per HPI and Reports weakness Comments: Negative Meds Home Medications and Allergies Home Medications ?Medication ?Instructions ?Recorded ?Confirmed ?Type cholecalciferol (vitamin D3) 125 125 mcg PO DAILY 60 d ays #60 caps 10/23/24 02/21/25 Rx mcg (5,000 unit) capsule buprenorphine 8 mg-naloxone 2 mg 2.5 film sublingual D AILY 11/25/24 02/22/25 History sublingual film alprazolam 1 mg tablet 1 mg PO QID #120 tabs 02/21/25 Rx amitriptyline 50 mg tablet 50 mg PO HS 02/21/25 History cyanocobalamin (vitamin B-12) 1,000 mcg PO DAILY 02/2102/21/25 History 1,000 mcg sublingual tablet New Prescriptions to Start Prescriptions: Allergies Allergy/AdvReac Type Severity Reaction Status Date / Time NSAIDS (Non-Steroidal Allergy Intermediate Other Verified 12/22/24 10:53 Anti-Inflamma acetaminophen (From Tylenol) AdvReac GI BLEED Verified 02/21/25 15:24 Exam Data for Last 24 hours Vital signs and Labs for Last 24 Hours: Temp Pulse Resp BP Pulse Ox O2 Del Method O2 Flow Rate 98 F 69 16 129/71 95 Room Air 1 02/23/25 08:55 02/23/25 08:55 02/23/25 08:55 02/23/25 08:55 02/23/25 08:55 02/23/25 11:00 02/23/25 04:00 Laboratory Results - last 24 hr 02/21/25 13:45: Blood Type O Negative, Antibody Screen Negative, Crossmatch (AHG) See Detail 02/22/25 17:30: WBC 4.2 L, RBC 2.65 L, Hgb 8.4 L, Hct 25.0 L, MCV 94.3 H, MCH 31.7 H, MCHC 33.6, RDW 13.0, Plt Count 157, MPV 9.4, Neut % (Auto) 51.4, Lymph % (Auto) 36.5, [place] % (Auto) 6.2, Eos % (Auto) 4.3, Baso % (Auto) 0.9, Neut # (Auto) 2.2, Lymph # (Auto) 1.5, [place] # (Auto) 0.3, Eos # (Auto) 0.2, Baso # (Auto) 0.0, Total Counted 100, Neutrophils % (Manual) 60, Lymphocytes % (Manual) 31, Monocytes % (Manual) 4, Eosinophils % (Manual) 5 H, Platelet Estimate Normal, RBC Morphology Normal 02/22/25 18:35: Iron 83, TIBC 224 L, Iron Saturation 37.97188, Ferritin 147, Vitamin B12 216 L, Folate 34.90 02/22/25 : Blood Type Confirm O Negative 02/23/25 05:45: WBC 2.7 L D, RBC 2.33 L, Hgb 7.3 L D, Hct 21.9 L, MCV 94.0, MCH 30.5, MCHC 32.4, RDW 13.0, Plt Count 155, MPV 9.6, Neut % (Auto) 41.1, Lymph % (Auto) 43.8, [place] % (Auto) 7.4, Eos % (Auto) 6.3, Baso % (Auto) 0.7, Neut # (Auto) 1.1 L, Lymph # (Auto) 1.2, [place] # (Auto) 0.2, Eos # (Auto) 0.2, Baso # (Auto) 0.0, Sodium 138, Potassium 3.7, Chloride 107, Carbon Dioxide 29, Anion Gap 5.7, BUN 18 D, Creatinine 0.90, Estimated Creat Clear 192, Estimated GFR 93, Est GFR ( Amer) 112, Glucose 93, Calcium 8.3 L I & O for Last 24 hours: Intake & Output 02/20/25 02/21/25 02/22/25 02/23/25 23:59 23:59 23:59 23:59 Intake Total 965 / 1205 2650.001 / 3150.001 687.333 / 687.333 Output Total 450 / 450 0 / 0 0 / 0 Balance 515 / 755 2650.001 / 3150.001 687.333 / 687.333 Weight 250 lb 278 lb 8 oz 279 lb 8.738 oz *Routine HEENT Exam Head: Present normocephalic Eye: Present EOMI and PERRL ENT: Present mucous membranes moist *Routine Neck Exam Neck: Present supple *Routine Respiratory Exam Respiratory: Present CTA bilaterally *Routine Cardiovascular Exam Cardiovascular: Present RRR *Routine Abdominal Exam Abdominal: Present soft and normoactive bowel sounds; Absent tenderness *Routine Rectal Exam Rectal:: deferred *Routine Genitalia Exam Genitalia:: deferred *Routine Extremities Exam Extremities: Absent cyanosis, clubbing or edema *Routine Skin Exam Skin: Present warm; Absent rash *Routine Neurological Exam Neurological: Present alert and oriented X3 Assessment and Plan *Assessment and plan (1) Black tarry stools: Status: Acute Category: Medical Code(s): K92.1 - Melena (2) Melena: Status: Acute Category: Medical Code(s): K92.1 - Melena (3) Upper GI bleed: Status: Acute Category: Medical Code(s): K92.2 - Gastrointestinal hemorrhage, unspecified (4) Anemia: Status: Acute Qualifiers: Anemia type: unspecified type Qualified Code(s): D64.9 - Anemia, unspecified Category: Medical Code(s): D64.9 - Anemia, unspecified Plan A/P: 1. Upper GI bleed with black tarry stools/melena and anemia is the preprocedural diagnosis. The patient will be anesthetized/sedated using MAC sedation. The patient has been seen and examined. Cardiac and lung assessment prior to the examination is stable. Proceed with planned diagnostic EGD.
--- NOTE | 2025-02-23 13:42 | P.PCN_ITS ---
[facility] Procedure Note Date: 02/23/25 Time: 13:49 Procedure Note:: Upper Endoscopy Procedure Report: Esophagogastroduodenoscopy with cold biopsies Endoscopost: Florentin Cabral II, MD Referring Physician: Nitin Jacques MD Date of Procedure: February 23, 2025 Equipment: Olympus GIF-1100 standard upper endoscope Sedation: MAC sedation Indications: Mr. Resendiz is a 44-year-old gentleman who presents with melanotic stools and anemia. He does drink a pint of alcohol daily. He reports no NSAIDs or anticoagulation. This is his first upper endoscopy. He reports no hematemesis or abdominal pain. The patient's hemoglobin and hematocrit upon admission was 11.1 and 34.6 with dropped to 7.3 and 21.9 today. He did have mildly macrocytic indices. Iron studies showed normal serum iron of 83, TIBC 224, iron saturation 37% and ferritin of 147. His B12 level was 216 and folate 34.90. Procedure: Prior to the procedure, a history and physical exam was performed, and patient's medications and allergies were reviewed. The risks, benefits and alternatives of the sedation and procedure were discussed with the patient. All questions were answered and informed consent was obtained. The patient was brought to the procedure room. Patient identification and proposed procedure were verified by the physician and the nurse. The patient was placed in a left lateral decubitus position and the scope was passed under direct vision. Throughout the procedure, the patient's blood pressure, pulse, and oxygen saturations were monitored continuously. The upper GI endoscopy was accomplished without difficulty. The patient tolerated the procedure well. Findings: The scope was passed directly into the upper esophagus and advanced to the third portion of the duodenum. The post bulbar duodenum, ampulla and duodenal bulb were normal with normal mucosa and conniventes. There were no ulcerations, erosions, duodenitis, AVMs or any duodenal bleeding abnormality. The scope was withdrawn through a normal duodenal bulb and pylorus into the stomach. There was mild gastropathy of the antrum. The remainder of the antrum, body and fundus were normal. There were no ulcerations, erosions or AVMs. There was no heme identified in the upper digestive tract. Cold biopsies were taken from the first portion of duodenum as well as from the gastric incisura. The scope was then withdrawn into the esophagus. There was no Allegra-Juárez tear. There was no evidence of reflux esophagitis or esophageal varices. The remainder of the esophageal mucosa was normal. Impression: 1. Mild antral gastropathy otherwise normal upper digestive tract with no heme or evidence of upper GI bleed Plan: I will follow-up the biopsies. I am going to do Hemoccult testing. If he is strongly Hemoccult positive, I would recommend colonoscopy and if normal, consider PillCam. The patient does have macrocytic anemia and has B12 deficiency. I will begin B12 replacement.
--- NOTE | 2025-02-23 14:25 | SUR.PHASEII ---
Report called to Madhuri Subramanian RN on med surg. Radiology here to get pt for CT scan
[2025-02-23] MEDS: SODIUM CHLORIDE 0.9% 10ML SYR (RAD ONLY) 10 ML IV (14:53)
[2025-02-23] MEDS: IOPAMIDOL-370 (76%);100ML BOTTLE 85 ML IV (14:53)
[2025-02-23] MEDS: 0.9 % SODIUM CHLORIDE 50 ML VIAL IV (14:53)
--- NOTE | 2025-02-23 15:46 | PC.NURSE ---
Pt expresses being unsure about the blood transfusion due to The GI doctor not recommending it. Pt would like to talk to hospitalist before proceeding. Hospitalist notified.
[2025-02-23] MEDS: POLYETHYLENE GLYCOL 3350 17 GM PACKET PO (16:32)
[2025-02-23] MEDS: 0.9 % SODIUM CHLORIDE 250 ML 25 ML IV (16:33)
--- NOTE | 2025-02-23 17:35 | PC.NURSE ---
Pt is A&Ox4. Vital signs stable tolerating room air. Pt complained of headache and toothache today. PRN pain medication given per AUG. IV fluids and protonix gtt infusing per AUG. Pt currently receiving 1 unit of PRBC's. Pt tolerating well. EGD completed today. Occult stool to be collected. Pt resting comfortably in bed with no further needs voiced at this time. Call light within reach.
[2025-02-23 19:16] LABS: Occult Blood,Stool Positive (Negative)
[2025-02-23] MEDS: AMITRIPTYLINE 50MG TABLET 50 MG PO (20:11)
[2025-02-23] MEDS: CYCLOBENZAPRINE 10MG TABLET 5 MG PO (20:11)
[2025-02-23 20:44] LABS: Hematocrit 24.8 % (42.0-52.0)
[2025-02-23 21:04] LABS: Hemoglobin 8.3 g/dL (14.1-18.0)
[2025-02-23] MEDS: PEG-ELECTROLYTE SOLN 4000ML BOTTLE 4000 ML PO (21:07)
--- NOTE | 2025-02-23 23:11 | EXP.PN ---
Subjective *Date: 02/23/25 *Time: 23:11 Interval history: Patient doing well, no bowel movements today. FOBT positive, plan for colonoscopy in the morning per GI. Bowel prep overnight. Exam Data for Last 24 hours Vital signs and Labs for Last 24 Hours: Temp Pulse Resp BP Pulse Ox O2 Del Method O2 Flow Rate 98.4 F 75 17 136/81 98 Room Air 1 02/23/25 20:00 02/23/25 20:00 02/23/25 20:00 02/23/25 20:00 02/23/25 20:00 02/23/25 21:00 02/23/25 04:00 Laboratory Results - last 24 hr 02/21/25 13:45: Blood Type O Negative, Antibody Screen Negative, Crossmatch (AHG) See Detail 02/23/25 05:45: WBC 2.7 L D, RBC 2.33 L, Hgb 7.3 L D, Hct 21.9 L, MCV 94.0, MCH 30.5, MCHC 32.4, RDW 13.0, Plt Count 155, MPV 9.6, Neut % (Auto) 41.1, Lymph % (Auto) 43.8, [place] % (Auto) 7.4, Eos % (Auto) 6.3, Baso % (Auto) 0.7, Neut # (Auto) 1.1 L, Lymph # (Auto) 1.2, [place] # (Auto) 0.2, Eos # (Auto) 0.2, Baso # (Auto) 0.0, Sodium 138, Potassium 3.7, Chloride 107, Carbon Dioxide 29, Anion Gap 5.7, BUN 18 D, Creatinine 0.90, Estimated Creat Clear 192, Estimated GFR 93, Est GFR ( Amer) 112, Glucose 93, Calcium 8.3 L 02/23/25 18:45: Stool Occult Blood Positive A 02/23/25 20:38: Hgb 8.3 L D, Hct 24.8 L I & O for Last 24 hours: Intake & Output 02/20/25 02/21/25 02/22/25 02/23/25 23:59 23:59 23:59 23:59 Intake Total 965 / 1205 2650.001 / 3150.001 1446.666 / 1446.666 Output Total 450 / 450 0 / 0 0 / 0 Balance 515 / 755 2650.001 / 3150.001 1446.666 / 1446.666 Weight 113.398 kg 126.325 kg 126.8 kg Constitutional Constitutional: no acute distress *Routine HEENT Exam Head: Present normocephalic Eye: Present EOMI and PERRL ENT: Present mucous membranes moist *Routine Neck Exam Neck: Present supple; Absent lymphadenopathy *Routine Respiratory Exam Respiratory: Present CTA bilaterally *Routine Cardiovascular Exam Cardiovascular: Present RRR *Routine Abdominal Exam Abdominal: Present soft and normoactive bowel sounds; Absent tenderness *Routine Extremities Exam Extremities: Absent cyanosis, clubbing or edema *Routine Skin Exam Skin: Present warm; Absent rash *Routine Neurological Exam Neurological: Present alert and oriented X3 Assessment and Plan *Assessment and plan (1) Anemia: Status: Acute Qualifiers: Anemia type: unspecified type Qualified Code(s): D64.9 - Anemia, unspecified Category: Medical Code(s): D64.9 - Anemia, unspecified (2) Black tarry stools: Status: Acute Category: Medical Code(s): K92.1 - Melena (3) Chronic pain: Status: Acute Category: Medical Code(s): G89.29 - Other chronic pain (4) History of substance abuse: Status: Acute Category: Medical Code(s): F19.11 - Other psychoactive substance abuse, in remission Plan Patient is a 44-year-old male with past medical history of alcohol abuse who presents to the hospital due to generalized weakness, shortness of breath as well as melanotic stools. Patient mentions he drinks about a pint a day, his last drink was yesterday at 5 PM, he denies abdominal pain chest pain, nausea vomiting fevers chills diarrhea constipation dysuria. On further evaluation patient was found to be positive for low hemoglobin and then his baseline. Patient denied withdrawing from alcohol. Assessment and plan Generalized weakness Melena GI bleed Anemia of acute blood loss ? GI consulted, s/p EGD without signs of active bleeding. No evidence of PUD. Recommended FOBT, which was positive. Discussed with Dr. Cabral, who recommended bowel prep overnight for planned colonoscopy in the morning. ? Hemoglobin 7.3, will give 1 unit PRBC in the setting of NSTEMI and likely underlying coronary issues given risk factors. Follow-up posttransfusion H/H. ? Discontinued Protonix gtt. History of alcohol abuse Substance abuse Monitor for alcohol withdrawal CIWA assessment with as needed Ativan Chronic medical conditions Substance abuse disorder Chronic pain Anxiety - Continue home Suboxone, amitriptyline, Xanax. DVT prophylaxis-SCDs only DC planning - NPO after MN, possible EGD tomorrow, monitor HnH
[2025-02-24] VITALS: BP 121/61; PULSE 69; RESP 16; TEMP 36.7; O2SAT 96
[2025-02-24] MEDS: LACTATED RINGERS 1000ML 1,000 ML 50 ML IV (03:34)
[2025-02-24 04:00] VITALS: BP 122/62; PULSE 66; RESP 16; TEMP 36.8; O2SAT 94; BMI 32.3
--- NOTE | 2025-02-24 04:36 | PC.NURSE ---
Pt A&OX4 and has tolerated room air. He has ambulated to the bathroom independently. LR infusing @ 50. Protonix gtt DC'd. Pt given golytely and educated on it. No complaints at this time, call light within reach.
[2025-02-24 06:37] LABS: Hematocrit 23.6 % (42.0-52.0); Hemoglobin 8.0 g/dL (14.1-18.0); Immature Granulocytes % 0.8 %; Mean Corpuscular HGB Conc 33.9 g/dL (31.8-35.4); Mean Corpuscular Hemoglobin 31.7 pg (27.0-31.2); Mean Corpuscular Volume 93.7 fl (80-94); Nucleated Red Blood Cells % 0 %; Platelet Count 136 K/mm3 (142-424); Red Blood Count 2.52 M/mm3 (4.60-6.20); Red Cell Distribution Width-SD 44.4 fL; White Blood Count 2.6 K/mm3 (4.8-10.8)
[2025-02-24 06:48] LABS: Chloride 107 mmol/L (98-107); Potassium 3.6 mmoL/L (3.5-5.1); Sodium 139 mmol/L (136-145)
[2025-02-24 06:51] LABS: Anion Gap 6.6 mEq/L (5-15); Blood Urea Nitrogen 13 mg/dl (9-20); Calcium 8.2 mg/dl (8.4-10.2); Carbon Dioxide 29 mmol/L (22.0-30.0); Creatinine Clearance Estimated 173 mL/min (50-200); Creatinine,Serum 1.00 mg/dl (0.66-1.25); Estimated Glomerular Filt Rate 82 ml/min (>60); GFR (African American) 99 ML/MIN (>60); Glucose 114 mg/dl (74-100)
--- NOTE | 2025-02-24 07:33 | P.PN_ITS ---
Subjective *Date: 02/24/25 *Time: 07:33 Interval history: Plan colonoscopy today. Patient resting and the entire jug of Percy is sitting at bedside and has not been consumed. I do have some concern that he will not be prepped today. Exam Data for Last 24 hours Vital signs and Labs for Last 24 Hours: Temp Pulse Resp BP Pulse Ox O2 Del Method O2 Flow Rate 98.2 F 66 16 122/62 94 L Room Air 1 02/24/25 04:00 02/24/25 04:00 02/24/25 04:00 02/24/25 04:00 02/24/25 04:00 02/24/25 06:39 02/23/25 04:00 Laboratory Results - last 24 hr 02/21/25 13:45: Blood Type O Negative, Antibody Screen Negative, Crossmatch (AHG) See Detail 02/23/25 18:45: Stool Occult Blood Positive A 02/23/25 20:38: Hgb 8.3 L D, Hct 24.8 L 02/24/25 05:36: WBC 2.6 L, RBC 2.52 L, Hgb 8.0 L, Hct 23.6 L, MCV 93.7, MCH 31.7 H, MCHC 33.9, RDW 13.2, Plt Count 136 L, MPV 9.6, Neut % (Auto) 39.6, Lymph % (Auto) 42.6, [place] % (Auto) 8.7, Eos % (Auto) 6.8, Baso % (Auto) 1.5, Neut # (Auto) 1.0 L, Lymph # (Auto) 1.1, [place] # (Auto) 0.2, Eos # (Auto) 0.2, Baso # (Auto) 0.0, Sodium 139, Potassium 3.6, Chloride 107, Carbon Dioxide 29, Anion Gap 6.6, BUN 13 D, Creatinine 1.00, Estimated Creat Clear 173, Estimated GFR 82, Est GFR ( Amer) 99, Glucose 114 H D, Calcium 8.2 L I & O for Last 24 hours: Intake & Output 02/21/25 02/22/25 02/23/25 02/24/25 23:59 23:59 23:59 23:59 Intake Total 965 / 1205 2650.001 / 3150.001 1446.666 / 1932.029 0790.333 / 1003.333 Output Total 450 / 450 0 / 0 0 / 0 Balance 515 / 755 2650.001 / 3150.001 1446.666 / 0937.111 0595.333 / 1003.333 Weight 250 lb 278 lb 8 oz 279 lb 8.738 oz 280 lb Constitutional Constitutional: no acute distress *Routine HEENT Exam Head: Present normocephalic Eye: Present EOMI and PERRL ENT: Present mucous membranes moist *Routine Neck Exam Neck: Present supple; Absent lymphadenopathy *Routine Respiratory Exam Respiratory: Present CTA bilaterally *Routine Cardiovascular Exam Cardiovascular: Present RRR *Routine Abdominal Exam Abdominal: Present soft and normoactive bowel sounds; Absent tenderness *Routine Extremities Exam Extremities: Absent cyanosis, clubbing or edema *Routine Skin Exam Skin: Present warm; Absent rash *Routine Neurological Exam Neurological: Present alert and oriented X3 Assessment and Plan *Assessment and plan (1) Occult blood positive stool: Status: Acute Category: Medical Code(s): R19.5 - Other fecal abnormalities (2) Melena: Status: Acute Category: Medical Code(s): K92.1 - Melena (3) GI bleed: Status: Acute Category: Medical Code(s): K92.2 - Gastrointestinal hemorrhage, unspecified Plan 1. Melena with heme positive stool and acute anemia. The patient does have a GI bleed. Communicated with hospitalist (Dr. Ozzie Valverde MD) last evening and preparation was ordered. Unfortunately, most of the GoLytely prep has not been consumed. I did have a discussion with patient's nurses. Uncertain why he did not get prepped last evening when this was ordered. I did state that timewise we needed to do this today at noon and if he fails to prep, he will have to be done as outpatient.
--- NOTE | 2025-02-24 07:46 | EXP.PN ---
Subjective *Date: 03/08/25 *Time: 23:47 Interval history: Patient laying in bed without acute distress. Colonoscopy planned for today, but bowel prep not finished today. Rescheduled for tomorrow. Hemoglobin stable at 8.0. Exam Data for Last 24 hours Vital signs and Labs for Last 24 Hours: Temp Pulse Resp BP Pulse Ox O2 Del Method O2 Flow Rate 97.2 F L 61 17 112/49 L 100 Room Air 1 02/25/25 07:42 02/25/25 07:42 02/25/25 07:42 02/25/25 07:42 02/25/25 07:42 02/25/25 07:42 02/23/25 04:00 Laboratory Results - last 24 hr 02/21/25 13:45: Blood Type O Negative, Antibody Screen Negative, Crossmatch (AHG) See Detail I & O for Last 24 hours: Intake & Output 02/22/25 02/23/25 02/24/25 02/25/25 23:59 23:59 23:59 23:59 Intake Total 2650.001 / 3150.001 1446.833 / 7501.830 9689.000 / 4135.000 Output Total 0 / 0 0 / 0 0 / 0 0 / 0 Balance 2650.001 / 3150.001 1446.833 / 1120.258 3132.000 / 4135.000 0 / 0 Weight 126.325 kg 126.8 kg 127.006 kg 125.509 kg Constitutional Constitutional: no acute distress and obese *Routine HEENT Exam Head: Present normocephalic Eye: Present EOMI and PERRL ENT: Present mucous membranes moist *Routine Neck Exam Neck: Present supple; Absent lymphadenopathy *Routine Respiratory Exam Respiratory: Present CTA bilaterally *Routine Cardiovascular Exam Cardiovascular: Present RRR *Routine Abdominal Exam Abdominal: Present soft and normoactive bowel sounds; Absent tenderness *Routine Extremities Exam Extremities: Absent cyanosis, clubbing or edema *Routine Skin Exam Skin: Present warm; Absent rash *Routine Neurological Exam Neurological: Present alert and oriented X3 Assessment and Plan *Assessment and plan (1) Anemia: Status: Acute Qualifiers: Anemia type: unspecified type Qualified Code(s): D64.9 - Anemia, unspecified Category: Medical Code(s): D64.9 - Anemia, unspecified (2) Black tarry stools: Status: Acute Category: Medical Code(s): K92.1 - Melena (3) Chronic pain: Status: Acute Category: Medical Code(s): G89.29 - Other chronic pain (4) History of substance abuse: Status: Acute Category: Medical Code(s): F19.11 - Other psychoactive substance abuse, in remission Plan Patient is a 44-year-old male with past medical history of alcohol abuse who presents to the hospital due to generalized weakness, shortness of breath as well as melanotic stools. Patient mentions he drinks about a pint a day, his last drink was yesterday at 5 PM, he denies abdominal pain chest pain, nausea vomiting fevers chills diarrhea constipation dysuria. On further evaluation patient was found to be positive for low hemoglobin and then his baseline. Patient denied withdrawing from alcohol. Assessment and plan Generalized weakness Melena GI bleed Anemia of acute blood loss ? GI consulted, s/p EGD without signs of active bleeding. No evidence of PUD. Recommended FOBT, which was positive. ? GI consulted, plan was for colonoscopy today. However patient did not finish his bowel prep. Rescheduled for tomorrow. ? Hemoglobin stable at 8.0 today. Had received 1 unit transfusion. #NSTEMI ? Troponins peaked at 0.10, improving. No chest pain, shortness of breath. ? Cardiology consulted, plan to pursue outpatient ischemic workup given normal echo. ? Avoid antiplatelets for now due to GI bleed. History of alcohol abuse Substance abuse Monitor for alcohol withdrawal CIWA assessment with as needed Ativan Chronic medical conditions Substance abuse disorder Chronic pain Anxiety - Continue home Suboxone, amitriptyline, Xanax. DVT prophylaxis-SCDs only
[2025-02-24 07:52] VITALS: BP 124/78; PULSE 66; RESP 18; TEMP 36.6; O2SAT 97
[2025-02-24] MEDS: BUPRENORPHINE/NALOXONE 8MG/2MG ODT 2.5 EACH SL (08:46)
[2025-02-24] MEDS: VITAMIN B-12 1,000 MCG 1ML VIAL 1000 MCG IM (08:47)
[2025-02-24 11:32] VITALS: BP 119/79; PULSE 80; RESP 16; TEMP 36.7; O2SAT 100
--- OUTSIDE RECORDS SUMMARY | 2025-02-24 14:38 | XMS_ITS | Clinical Summary ---
Author Organization [facility] Address [address] 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 or to get [...] [facility]-Depression Screening 1982 [facility]-/Child/Adol SDOH Screenings 1982 [id number]-26 Vaccine (#1) 1987 [facility]-Varicella Vaccines (1 of [...] Procedure Name Priority Date/Time Associated Diagnosis Comments HEPATITIS C ANTIBODY - ED W/REFLEX TO HCV QUANT PCR Routine 11/20/2024 2:11 PM EDT ED HIV 1/2 ANTIBODY/ANTIGEN SCREEN WITH REFLEX TO HIV I/II DIFFERENTIATION Routine 11/20/2024 2:11 PM EDT from Last 3 Months or Most Recently Relevant to Health Maintenance Results * ED HIV 1/2 Antibody/Antigen Screen w/Reflex to HIV 1/2 Differentiation (11/20/2024 2:11 PM EDT) Pathologist [facility] HIV 1 & 2 Antibody/Antigen Screen Non Reactive Non Reactive 11/20/2024 3:07 PM EDT [facility] Comment:Screening for HIV 1 & 2 antibodies, and P24 antigen is NONREACTIVE. No confirmatory testing is required. Blood Venous blood specimen / Unknown Venipuncture / Unknown 11/20/2024 2:11 PM EDT 11/20/2024 2:20 PM EDT Ash Boston MD LAB BLOOD ORDERABLES Final R esult Performing Organization Address City/[facility]/ZIP Co de Phone Number [facility] [address] [place] [address] * Hepatitis C Antibody - ED (11/20/2024 2:11 PM EDT) Pathologist [facility] Hepatitis C Antibody Negative Negative 11/20/2024 3:07 PM EDT [facility] Blood Venous blood specimen / Unknown Venipuncture / Unknown 11/20/2024 2:11 PM EDT 11/20/2024 2:20 PM EDT Ash Boston MD LAB BLOOD ORDERABLES Final R esult Performing Organization Address City/[facility]/ZIP Co de Phone Number [facility] [address] [place] [address] from Last 3 Months or Most Recently Relevant to Health Maintenance Insurance [facility] MEDICAID [facility] MEDICAID Advance Directives * Full Code (Latest Code Status on File) Date Activated Date Inactivated Comments 11/20/2024 4:51 PM 11/22/2024 3:56 PM Question Answer Comments I have reviewed the capacity from the link above and, if needed, have updated to appropriate status: Yes Care Teams Pharmaceutical Sales Specialist Relationship Specialty Start Date End Date Pcp, No [address] [place] [address] PCP - General Family Medicine 11/20/24
--- OUTSIDE RECORDS SUMMARY | 2025-02-24 14:38 | XMS_ITS | Clinical Summary ---
Author Organization [facility] Address [address] 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
[2025-02-24] MEDS: ACETAMINOPHEN 500MG TAB 1000 MG PO (15:41)
[2025-02-24 16:00] VITALS: BP 146/70; PULSE 82; RESP 17; TEMP 36.8; O2SAT 97
--- NOTE | 2025-02-24 16:45 | PC.NURSE ---
Addendum entered by Madhuri Subramainan RN 02/24/25 17:42: Golytely ordered and given to pt per AUG. Pt educated on how to take and the importance of taking medication correctly. Pt verbalizes understanding. Original Note: Pt is A&Ox4. Vital signs stable tolerating room air. Pt was unable to go down for colonoscopy today d/t pt starting prep late. Plan is to reschedule colonoscopy for tomorrow. Golytely has not been ordered at this time. Hospitalist notified. Hospitalist reaching out to Dr. Cabral at this time to confirm dose/time for prep. Pt complains of a toothache. PRN pain medication given with relief. Pt resting comfortably in bed with no further needs voiced at this time. Call light within reach.
[2025-02-24] MEDS: ONDANSETRON 4MG/2ML VIAL 4 MG IV (17:07)
[2025-02-24] MEDS: PEG-ELECTROLYTE SOLN 4000ML BOTTLE 2000 ML PO (17:07)
[2025-02-24 19:48] VITALS: BP 133/89; PULSE 70; RESP 16; TEMP 36.8; O2SAT 93
[2025-02-24] MEDS: AMITRIPTYLINE 50MG TABLET 50 MG PO (20:37)
[2025-02-24] MEDS: CYCLOBENZAPRINE 10MG TABLET 5 MG PO (20:37)
[2025-02-25] VITALS (7 sets, daily range): BP systolic 102–139; BP diastolic 45–80; PULSE 59–76; RESP 15–18; TEMP 36.2–36.9; O2SAT 94–100; BMI 32.0
--- NOTE | 2025-02-25 01:00 | PC.NURSE ---
patient completed bowel prep.
[2025-02-25] MEDS: ACETAMINOPHEN 500MG TAB 1000 MG PO ×2 (03:38→09:47)
--- NOTE | 2025-02-25 07:02 | HMH.PROCNOTE ---
[facility] Procedure Note Date: 02/25/25 Time: 07:20 Procedure Note:: Colonoscopy Procedure Report: Colonoscopy Endoscopist: Florentin Cabral II, MD Referring physician: Gurjit Resendez MD Date of Procedure: February 25, 2025 Equipment: Olympus [id number] adult colonoscope Sedation: MAC sedation Indication: Mr. Resendiz is a 44-year-old gentleman who is here for diagnostic colonoscopy secondary to melena and acute anemia and Hemoccult positive stool. He was drinking a pint of alcohol daily. He reported no use of NSAIDs or anticoagulation. His upper endoscopy showed some mild gastropathy but there was no source of acute bleeding (no ulcers, AVMs, dieulafoy lesion or varices). The patient's hemoglobin and hematocrit dropped. The hemoglobin hematocrit floridalma was 7.3 and 21.9. This has stabilized. The patient's iron studies were normal but the patient does have B12 deficiency. He reports no abdominal pain, weight loss, bright red rectal bleeding, change in bowel habits or family history of colon cancer. This is the patient's first colonoscopy. Procedure: Prior to the procedure, a history and physical exam was performed, and patient's medications and allergies were reviewed. The risks, benefits and alternatives of the sedation and procedure were discussed with the patient. All questions were answered and informed consent was obtained. The patient was brought to the procedure room. Patient identification and proposed procedure were verified by the physician and the nurse. The patient was placed in a left lateral decubitus position and the scope was passed under direct vision. Throughout the procedure, the patient's blood pressure, pulse, and oxygen saturations were monitored continuously. The colonoscopy was accomplished without difficulty. The patient tolerated the procedure well. Findings: On digital rectal examination there was normal rectal tone. There were no external hemorrhoids. The prostate was 2+, mildly firm but symmetric without nodules. The colonoscope was introduced through the anal canal to the rectum and advanced to the cecum. The ileocecal valve and appendiceal orifice were identified. The scope was advanced a short distance into the ileum which appeared grossly normal. The scope was then withdrawn into the colon. The cecum, ascending, transverse, descending, sigmoid and rectum were grossly normal. There were no mucosal abnormalities identified. Upon retroflexion within the rectum there were grade 1 internal hemorrhoids. The preparation was excellent throughout with [place] Preparation Score of 9. The cecal time was 12 minutes. Impression: 1. Normal colonoscopy with intubation of the terminal ileum Plan: There is again no source for his GI bleed. In persons with GI blood loss and anemia that have tested positive for occult blood in the stool, it is most appropriate to then consider doing capsule endoscopy (PillCam) if bidirectional endoscopy (i.e. upper endoscopy and colonoscopy) did not identify any source of bleeding. Approximately 10% of GI bleeds are from the small bowel and not reachable by endoscopy/colonoscopy. Prior to PillCam, I would consider imaging with abdominal CT enterography since he has not had imaging of the abdomen.
--- NOTE | 2025-02-25 07:24 | CT_ITS ---
FINAL REPORT TECHNIQUE: Thin section axial images are obtained through the abdomen and pelvis after intravenous contrast. Reconstruction images were obtained from the axial data. Exam was performed using dose reduction techniques. CLINICAL HISTORY: Anemia/GI bleed enterography normal EGD and colonscopy COMPARISON: 02/23/2025 FINDINGS: LUNG BASES: There is a 3 mm right middle lobe pulmonary nodule, unchanged from prior exam. Lungs are otherwise clear. Heart size is normal. LIVER: Fatty infiltrated. No focal lesion. GALLBLADDER/BILIARY SYSTEM: Gallbladder is present. No gallstones. No biliary dilatation. SPLEEN: Unremarkable. PANCREAS: Unremarkable. ADRENALS: Unremarkable. KIDNEYS/URETERS/BLADDER: No hydronephrosis, renal mass, or renal stone. Unremarkable urinary bladder. GI TRACT: Few scattered colonic diverticula without evidence of diverticulitis. No small bowel obstruction or dilatation. Normal appendix. No acute colon abnormality. PELVIC ORGANS: Unremarkable for age. Prostate normal. LYMPH NODES/RETROPERITONEUM/MESENTERY: No lymphadenopathy. No abdominal aortic aneurysm. ABDOMINAL WALL: The abdominal wall is intact. FREE FLUID: No ascites. BONES: No acute osseous abnormality. IMPRESSION: No acute abnormality of the abdomen or pelvis. Fatty infiltration of the liver. Reviewed, Interpreted and Dictated by Jami De La Torre MD Transcribed by Kirsty Wilks Authenticated and [facility]
--- NOTE | 2025-02-25 07:26 | EXP.ANES.CKL ---
[facility] Disclaimer: The information contained in this section may have been updated after the patient was seen, as this information can be updated by other users. 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 Insomnia Polysubstance use disorder Chronic pain Right foot pain Anxiety Social History (Updated 02/21/25 @ 15:32 by Kelsea Ramachandran RN) Smoking Status: Current some day smoker tobacco type: cigarettes packs per day: 1 alcohol intake: current substance use type: former substance user, marijuana, heroin and opiates current occupational status: other Travel in the last 8 weeks?: None household members: family housing: house Have you lived/traveled outside US in past 30 days?: No Contact w/someone who lives/traveled outside US past 30 days?: No Exposure to someone with infectious disease in past 14 days?: No Do you have a fever (greater than 100.4 F or 38 C)?: No Have you tested positive for COVID-19?: No Exposed to someone with COVID-19 in past 14 days?: No Do you have a sore throat?: No Do you have a cough?: No Do you have any weakness?: No Are you experiencing any nausea/vomitting?: No Do you have any diarrhea?: No Are you experiencing any unusual bleeding?: No Do you have any muscle aches/pain?: No Do you have any abdominal pain?: No Are you experiencing loss of taste or smell?: No [facility] Anesthesia Checklist Patient Identification Patient Identification: Arm Band Structural Data Admitted From: Inpatient Planned Operative Procedure/s: Colonoscopy Consent for Planned Operative Procedure(s) Verified: Yes Verified Documents: Surgical Consent and History and Physical NPO Status Verified Time NPO: 00:00 Additional verifications Anesthesia Reactions: No Airway Assessment Mallampati Score:: Class II C-Spine Mobility Assessed: Yes TMJ Mobility Assessed: Yes Dentition: Good Dentition Neurological Assessment Level of Consciousness: Awake, Alert and Appropriate Anesthesia Plan Anesthesia Risk discussed: Yes Anesthesia Plan: Verified ASA Class: II Anesthesia Type: MAC
--- NOTE | 2025-02-25 08:06 | SUR.PHASEII ---
pt to radiology for scan then to floor. Left post op at 0806. Report called to MS Narda nurse.
[2025-02-25] MEDS: BREEZA FLAVORED BEVERAGE 500ML BOTTLE (RAD USE ONLY) 1500 ML PO (09:02)
[2025-02-25] MEDS: BUPRENORPHINE/NALOXONE 8MG/2MG ODT 2.5 EACH SL (09:34)
[2025-02-25] MEDS: 0.9 % SODIUM CHLORIDE 50 ML VIAL IV (09:35)
[2025-02-25] MEDS: IOPAMIDOL-370 (76%);100ML BOTTLE 100 ML IV (09:35)
[2025-02-25] MEDS: SODIUM CHLORIDE 0.9% 10ML SYR (RAD ONLY) 10 ML IV (09:35)
[2025-02-25] MEDS: VITAMIN B-12 1,000 MCG 1ML VIAL 1000 MCG IM (09:35)
[2025-02-25 10:28] LABS: Hematocrit 27.4 % (42.0-52.0); Hemoglobin 9.2 g/dL (14.1-18.0); Immature Granulocytes % 0.8 %; Mean Corpuscular HGB Conc 33.6 g/dL (31.8-35.4); Mean Corpuscular Hemoglobin 31.6 pg (27.0-31.2); Mean Corpuscular Volume 94.2 fl (80-94); Nucleated Red Blood Cells % 0 %; Platelet Count 187 K/mm3 (142-424); Red Blood Count 2.91 M/mm3 (4.60-6.20); Red Cell Distribution Width-SD 45.2 fL; White Blood Count 3.8 K/mm3 (4.8-10.8)
[2025-02-25 10:42] LABS: Albumin Level 4.3 g/dl (3.5-5.0); Chloride 103 mmol/L (98-107); Potassium 3.5 mmoL/L (3.5-5.1); Sodium 140 mmol/L (136-145)
[2025-02-25 10:45] LABS: Alanine Aminotransferase 37 U/L (12-78); Albumin/Globulin Ratio 1.7 (1.1-1.8); Alkaline Phosphatase 57 U/L (38-126); Anion Gap 11.5 mEq/L (5-15); Aspartate Amino Transferase 58 U/L (17-59); Bilirubin,Total 0.7 mg/dl (0.2-1.3); Blood Urea Nitrogen 8 mg/dl (9-20); Calcium 9.3 mg/dl (8.4-10.2); Carbon Dioxide 29 mmol/L (22.0-30.0); Creatinine Clearance Estimated 190 mL/min (50-200); Creatinine,Serum 0.90 mg/dl (0.66-1.25); Estimated Glomerular Filt Rate 93 ml/min (>60); GFR (African American) 112 ML/MIN (>60); Globulin 2.5 g/dL (1.3-3.2); Glucose 104 mg/dl (74-100); Magnesium 1.9 mg/dl (1.6-2.3); Total Protein,Serum 6.8 g/dl (6.3-8.2)
--- NOTE | 2025-02-25 12:52 | EXP.DC.SUM ---
General Admission date:: 02/21/25 HPI HPI HPI: Patient is a 44-year-old male with past medical history of alcohol abuse who presents to the hospital due to generalized weakness, shortness of breath as well as melanotic stools. Patient mentions he drinks about a pint a day, his last drink was yesterday at 5 PM, he denies abdominal pain chest pain, nausea vomiting fevers chills diarrhea constipation dysuria. On further evaluation patient was found to be positive for low hemoglobin and then his baseline. Patient denied withdrawing from alcohol. Hospital Course Hospital Course Hospital Course: Mp Resendiz is a 44-year-old male who presented with melanotic stools and was admitted for evaluation of GI bleed. #GI bleed #Melanotic stools ? GI consulted, s/p EGD without signs of active bleeding. No evidence of PUD. Recommended FOBT, which was positive. Followed up with colonoscopy which also did not reveal a bleeding source. ? GI recommended PillCam endoscopy which will be set up on an outpatient basis. ? Hemoglobin stable at 9.3 on day of discharge. Received 1 unit PRBC. No further episodes of bleeding. ? MCV elevated, vitamin B12 low. Iron studies normal. ? Patient has not been taking his vitamin B12 supplementation, advised to do so. ? Follow-up with GI within 1 week. #NSTEMI ? Troponins peaked at 0.10, improving. No chest pain, shortness of breath. ? Cardiology consulted, plan to pursue outpatient ischemic workup given normal echo. Chronic medical conditions Substance abuse disorder Chronic pain Anxiety - Continue home Suboxone, amitriptyline, Xanax. Exam Data for Last 24 hours Vital signs and Labs for Last 24 Hours: Temp Pulse Resp BP Pulse Ox O2 Del Method O2 Flow Rate 97.8 F 59 L 18 135/66 100 Room Air 1 02/25/25 09:41 02/25/25 09:41 02/25/25 09:41 02/25/25 09:41 02/25/25 09:41 02/25/25 11:05 02/23/25 04:00 Laboratory Results - last 24 hr 02/21/25 13:45: Crossmatch (AHG) See Detail 02/25/25 10:15: WBC 3.8 L D, RBC 2.91 L, Hgb 9.2 L, Hct 27.4 L, MCV 94.2 H, MCH 31.6 H, MCHC 33.6, RDW 13.7, Plt Count 187 D, MPV 9.4, Neut % (Auto) 44.0, Lymph % (Auto) 40.3, Dougherty % (Auto) 8.8, Eos % (Auto) 5.3, Baso % (Auto) 0.8, Neut # (Auto) 1.7 L, Lymph # (Auto) 1.5, Dougherty # (Auto) 0.3, Eos # (Auto) 0.2, Baso # (Auto) 0.0, Sodium 140, Potassium 3.5, Chloride 103, Carbon Dioxide 29, Anion Gap 11.5, BUN 8 L D, Creatinine 0.90, Estimated Creat Clear 190, Estimated GFR 93, Est GFR ( Amer) 112, Glucose 104 H, Calcium 9.3, Magnesium 1.9, Total Bilirubin 0.7, AST 58, ALT 37, Alkaline Phosphatase 57, Total Protein 6.8, Albumin 4.3, Globulin 2.5, Albumin/Globulin Ratio 1.7 I & O for Last 24 hours: Intake & Output 02/22/25 02/23/25 02/24/25 02/25/25 23:59 23:59 23:59 23:59 Intake Total 2650.001 / 3150.001 1446.833 / 5055.689 1396.000 / 4135.000 Output Total 0 / 0 0 / 0 0 / 0 0 / 0 Balance 2650.001 / 3150.001 1446.833 / 6553.736 6200.000 / 4135.000 0 / 0 Weight 126.325 kg 126.8 kg 127.006 kg 125.509 kg Constitutional Constitutional: no acute distress and obese *Routine HEENT Exam Head: Present normocephalic Eye: Present EOMI and PERRL ENT: Present mucous membranes moist *Routine Neck Exam Neck: Present supple; Absent lymphadenopathy *Routine Respiratory Exam Respiratory: Present CTA bilaterally *Routine Cardiovascular Exam Cardiovascular: Present RRR *Routine Abdominal Exam Abdominal: Present soft and normoactive bowel sounds; Absent tenderness *Routine Extremities Exam Extremities: Absent cyanosis, clubbing or edema *Routine Skin Exam Skin: Present warm; Absent rash *Routine Neurological Exam Neurological: Present alert and oriented X3 Results Data Completed and Pending Labs on day of discharge: Labs from last 24 hours 08/27/25 08/23/25 10:15 13:45 WBC 3.8 L D RBC 2.91 L Hgb 9.2 L Hct 27.4 L MCV 94.2 H MCH 31.6 H MCHC 33.6 RDW 13.7 Plt Count 187 D MPV 9.4 Neut % (Auto) 44.0 Lymph % (Auto) 40.3 Dougherty % (Auto) 8.8 Eos % (Auto) 5.3 Baso % (Auto) 0.8 Neut # (Auto) 1.7 L Lymph # (Auto) 1.5 Dougherty # (Auto) 0.3 Eos # (Auto) 0.2 Baso # (Auto) 0.0 Sodium 140 Potassium 3.5 Chloride 103 Carbon Dioxide 29 Anion Gap 11.5 BUN 8 L D Creatinine 0.90 Estimated Creat Clear 190 Estimated GFR 93 Est GFR ( Amer) 112 Glucose 104 H Calcium 9.3 Magnesium 1.9 Total Bilirubin 0.7 AST 58 ALT 37 Alkaline Phosphatase 57 Total Protein 6.8 Albumin 4.3 Globulin 2.5 Albumin/Globulin Ratio 1.7 Crossmatch (AHG) See Detail DS: Diagnosis Discharge Diagnosis (1) Occult blood positive stool: Status: Acute Code(s): R19.5 - Other fecal abnormalities (2) Melena: Status: Acute Code(s): K92.1 - Melena (3) GI bleed: Status: Acute Code(s): K92.2 - Gastrointestinal hemorrhage, unspecified Meds Home Medications and Allergies Home Medications ?Medication ?Instructions ?Recorded ?Confirmed ?Type cholecalciferol (vitamin D3) 125 125 mcg PO DAILY 60 days #60 caps 10/23/24 03/03/25 Rx mcg (5,000 unit) capsule buprenorphine 8 mg-naloxone 2 mg 2.5 film sublingual DAILY 11/25/24 03/03/25 History sublingual film alprazolam 1 mg tablet 1 mg PO QID #120 tabs 02/11/25 03/03/25 Rx amitriptyline 50 mg tablet 50 mg PO HS 02/21/25 03/03/25 History cyanocobalamin (vitamin B-12) 2,000 mcg (2 x 1,000 mcg) PO DAILY 02/25/25 03/03/25 Rx 1,000 mcg sublingual tablet 30 days #60 tabs New Prescriptions to Start Prescriptions: cyanocobalamin (vitamin B-12) Ozzie Valverde Allergies Allergy/AdvReac Type Severity Reaction Status Date / Time NSAIDS (Non-Steroidal Allergy Intermediate Other Verified 03/03/25 08:17 Anti-Inflamma acetaminophen (From Tylenol) AdvReac GI BLEED Verified 03/03/25 08:17 Discharge Plan Disposition Patient Disposition: Home, Self-Care Condition: Fair Discharge Order Discharge Orders: Discharge Order (Routine); Ordered 02/25/25 Ordered By: Ozzie Valverde Follow up Plan Follow up with: Florentin Cabral II, MD [Staff Physician, Gastroenterology] - 03/03/25 8:15 am Prescriptions/Medication Reconciliation: Continued buprenorphine-naloxone 8-2 mg film 2.5 film sublingual DAILY cholecalciferol (vitamin D3) 125 mcg (5,000 unit) capsule 125 mcg PO DAILY 60 Days Qty: 60 3RF alprazolam 1 mg tablet 1 mg PO QID Qty: 120 0RF amitriptyline 50 mg tablet 50 mg PO HS Rx Instructions: TAKE ONE TABLET BY MOUTH AT BEDTIME Changed cyanocobalamin (vitamin B-12) 1,000 mcg tablet, sublingual 2,000 mcg PO DAILY 30 Days Qty: 60 0RF Rx Instructions: DISSOLVE 1 TABLET ON THE TONGUE ONCE A DAY Problem Reconciliation Problems Reviewed?: Yes Patient Discharge Instructions Stand Alone Forms: [facility] Work Release Patient Instructions: Upper GI Endoscopy, DI for Colonoscopy, DI for Gastrointestinal Bleeding Print Language: Yoruba Providers Primary Care Provider: Provider,Referral Admit Provider: Nitin Jacques Attending Provider: Nitin Jacques
--- NOTE | 2025-02-26 11:54 | SW/DCPLANNER ---
Spoke with patient on the phone. Patient stated that he is doing good. Patient stated that he is aware of his upcoming appointments. Patient stated that he was able to get his new medicine picked. Patient stated that he is just tired and weak. Patient stated that he has no concerns or questions at this time. Guicho LANTIGUA Materials Analyst
== END 2025-02-25 13:44 | disposition home or self-care (01) | DRG 377 ==
LOC: ER 11:54 → 2ND 13:35
PROVIDERS: Internal Medicine Gastroenterology; Student in an Organized Health Care Education/Training Program; Admitting Provider Internal Medicine; Emergency Provider Student in an Organized Health Care Education/Training Program; Visit Provider Internal Medicine
PROC: 0DJ08ZZ Inspection of Upper Intestinal Tract, Via Natural or Artificial Opening Endoscopic (ICD-10-PCS; principal; 2025-02-23 15:00)
PROC: 0DJD8ZZ Inspection of Lower Intestinal Tract, Via Natural or Artificial Opening Endoscopic (ICD-10-PCS; CPT 45378; principal; 2025-02-24 12:05)
DX: K92.2 Gastrointestinal hemorrhage, unspecified (principal); I21.A1 Myocardial infarction type 2; D62 Acute posthemorrhagic anemia; F17.210 Nicotine dependence, cigarettes, uncomplicated; K31.9 Disease of stomach and duodenum, unspecified; K64.0 First degree hemorrhoids; G89.29 Other chronic pain; F41.9 Anxiety disorder, unspecified; F10.10 Alcohol abuse, uncomplicated; F11.11 Opioid abuse, in remission; F12.11 Cannabis abuse, in remission; Y90.0 Blood alcohol level of less than 20 mg/100 ml; Z88.6 Allergy status to analgesic agent; Z79.899 Other long term (current) drug therapy
CPT/HCPCS: 36415; 36430; 71045; 71275; 74177; 80048; 80053; 80320; 82272; 82607; 82728; 82746; 83540; 83550; 83605; 83735; 84484; 85007; 85014; 85018; 85025; 85048; 85049; 85378; 85610; 86803; 86850; 87389; 88305; 93005; 93306; 99284; G0328; J0574; J0696; J2003; J2405; J2470; J2704; J3420; J7050; J7120; P9016; Q9967

== ENCOUNTER 2025-03-03 09:10 | Outpatient (CLI) | payer MEDICAID, SELFPAY ==
--- OUTSIDE RECORDS SUMMARY | 2025-03-03 09:32 | XMS_ITS | Clinical Summary ---
Author Organization [facility] Address [address] [place] [address] Care Team Providers Care Seasonal Driver Name Role Phone Pcp, No Primary Care [...] drink first t sourav in the morning (EYE-INDUSTRIAL RELATIONS ANALYST) to steady your nerves or to get [...] [facility]Y-Depression Screening 1982 [facility]-/Child/Adol SDOH Screenings 1982 [id number] Vaccine (#1) 1987 UKY-Varicella Vaccines (1 of [...] 1/2 Differentiation (11/20/2024 2:11 PM EDT) Pathologist [facility] [place] HIV 1 & 2 Antibody/Antigen Screen Non Reactive Non Reactive 11/20/2024 3:07 PM EDT [facility] Comment:Screening for HIV 1 & 2 antibodies, and P24 antigen is NONREACTIVE. No confirmatory testing is required. Blood Venous blood specimen / Unknown Venipuncture / Unknown 11/20/2024 2:11 PM EDT 11/20/2024 2:20 PM EDT Ash Boston MD LAB BLOOD ORDERABLES Final R esult Performing Organization Address City/[facility]/ZIP Co de Phone Number [facility] [address] [place] [address] * Hepatitis C Antibody - ED (11/20/2024 2:11 PM EDT) Pathologist [facility] [place] Hepatitis C Antibody Negative Negative 11/20/2024 3:07 PM EDT [facility] Blood Venous blood specimen / Unknown Venipuncture / Unknown 11/20/2024 2:11 PM EDT 11/20/2024 2:20 PM EDT Ash Boston MD LAB BLOOD ORDERABLES Final R esult Performing Organization Address City/[facility]/ZIP Co de Phone Number [facility] [address] [place] [address] from Last 3 Months or Most Recently Relevant to Health Maintenance Insurance [facility] MEDICAID [facility] MEDICAID Advance Directives * Full Code (Latest Code Status on File) Date Activated Date Inactivated Comments 11/20/2024 4:51 PM 11/22/2024 3:56 PM Question Answer Comments I have reviewed the capacity from the link above and, if needed, have updated to appropriate status: Yes Care Teams Seasonal Driver Relationship Specialty Start Date End Date Pcp, No [address] [place] [address] PCP - General Family Medicine 11/20/24
--- OUTSIDE RECORDS SUMMARY | 2025-03-03 09:32 | XMS_ITS | Clinical Summary ---
Author Organization [facility] Address [address] [place] [address] Phone Care Team Providers Care Filling Hauler Name Role Phone Unavailable Primary Care Provider [...]
[2025-03-03 10:09] LABS: Hematocrit 28.9 % (42.0-52.0); Hemoglobin 9.3 g/dL (14.1-18.0); Immature Granulocytes % 0.3 %; Mean Corpuscular HGB Conc 32.2 g/dL (31.8-35.4); Mean Corpuscular Hemoglobin 31.0 pg (27.0-31.2); Mean Corpuscular Volume 96.3 fl (80-94); Nucleated Red Blood Cells % 0 %; Platelet Count 234 K/mm3 (142-424); Red Blood Count 3.00 M/mm3 (4.60-6.20); Red Cell Distribution Width-SD 50.2 fL; White Blood Count 3.0 K/mm3 (4.8-10.8)
== END 2025-03-03 23:59 | disposition home or self-care (01) ==
LOC: LAB 09:11
PROVIDERS: PCP Family Medicine; Visit Provider Internal Medicine Gastroenterology
DX: K74.69 Other cirrhosis of liver (principal); B19.20 Unspecified viral hepatitis C without hepatic coma; K92.2 Gastrointestinal hemorrhage, unspecified
CPT/HCPCS: 36415; 85025

== ENCOUNTER 2025-04-15 09:02 | Outpatient (CLI) | payer MEDICAID, SELFPAY ==
--- OUTSIDE RECORDS SUMMARY | 2025-04-15 09:19 | XMS_ITS | Clinical Summary ---
Author Organization [facility] Address [address] [place] [address] Care Team Providers Care Charge Authorizer Name Role Phone Pcp, No Primary Care [...] drink first t sourav in the morning (EYE-MOISTURE METER OPERATOR) to steady your nerves or to get [...] Date Last Done Comments UKY-Depression Screening 1982 UKY-Infant/Child/Adol SDOH Screenings 1982 [id number] Vaccine (#1) 1987 UKY-Varicella Vaccines (1 of [...] 1/2 Differentiation (11/20/2024 2:11 PM EDT) Pathologist [facility] HIV 1 & 2 Antibody/Antigen Screen Non Reactive Non Reactive 11/20/2024 3:07 PM EDT [facility] Comment:Screening for HIV 1 & 2 antibodies, and P24 antigen is NONREACTIVE. No confirmatory testing is required. Blood Venous blood specimen / Unknown Venipuncture / Unknown 11/20/2024 2:11 PM EDT 11/20/2024 2:20 PM EDT Ash Boston MD LAB BLOOD ORDERABLES Final R esult Performing Organization Address City/[facility]/ZIP Co de Phone Number [facility] [address] [place] [address] * Hepatitis C Antibody - ED (11/20/2024 2:11 PM EDT) Pathologist [facility] Hepatitis C Antibody Negative Negative 11/20/2024 3:07 PM EDT [facility] Blood Venous blood specimen / Unknown Venipuncture / Unknown 11/20/2024 2:11 PM EDT 11/20/2024 2:20 PM EDT Ash Boston MD LAB BLOOD ORDERABLES Final R esult Performing Organization Address City/[facility]/ZIP Co de Phone Number [facility] [address] [place] [address] from Last 3 Months or Most Recently Relevant to Health Maintenance Insurance [facility] MEDICAID [facility] MEDICAID Advance Directives * Full Code (Latest Code Status on File) Date Activated Date Inactivated Comments 11/20/2024 4:51 PM 11/22/2024 3:56 PM Question Answer Comments I have reviewed the capacity from the link above and, if needed, have updated to appropriate status: Yes Care Teams Charge Authorizer Relationship Specialty Start Date End Date Pcp, No [address] [place] [address] PCP - General Family Medicine 11/20/24
--- OUTSIDE RECORDS SUMMARY | 2025-04-15 09:19 | XMS_ITS | Clinical Summary ---
Author Organization [facility] Address [address] [place] [address] Phone Care Team Providers Care Rope Cleaner Name Role Phone Unavailable Primary Care Provider [...] series) 2001 COVID-19 Vaccine (2023-2 5 season) 2025 Influenza Vaccine (#1) 2025 Meningococcal B Vaccine Aged Out No l onger eligible based on patient's age to complete this topic Pneumococcal Vaccine 0-49 Aged Out No longer eligible based on patient's age to complete this topic
[2025-04-15 10:35] LABS: Occult Blood,Stool Negative (Negative)
== END 2025-04-15 23:59 | disposition home or self-care (01) ==
LOC: LAB 09:03
PROVIDERS: PCP Family Medicine; Visit Provider Internal Medicine Gastroenterology
DX: K92.2 Gastrointestinal hemorrhage, unspecified (principal)
CPT/HCPCS: 82272; G0328

== ENCOUNTER 2025-04-23 11:10 | Outpatient (CLI) | payer MEDICAID, SELFPAY ==
[2025-04-23 15:27] LABS: Hematocrit 44.7 % (42.0-52.0); Hemoglobin 14.8 g/dL (14.1-18.0); Immature Granulocytes % 0.4 %; Mean Corpuscular HGB Conc 33.1 g/dL (31.8-35.4); Mean Corpuscular Hemoglobin 31.6 pg (27.0-31.2); Mean Corpuscular Volume 95.3 fl (80-94); Nucleated Red Blood Cells % 0 %; Platelet Count 185 K/mm3 (142-424); Red Blood Count 4.69 M/mm3 (4.60-6.20); Red Cell Distribution Width-SD 44.4 fL; White Blood Count 5.1 K/mm3 (4.8-10.8)
[2025-04-23 16:08] LABS: Iron 123 ug/dL (49-181)
[2025-04-23 16:11] LABS: Ferritin 32.2 ng/ml (17.9-464)
[2025-04-23 16:17] LABS: Total Iron Binding Capacity 240 ug/dL (261-462)
--- OUTSIDE RECORDS SUMMARY | 2025-04-24 10:17 | XMS_ITS | Clinical Summary ---
Author Organization [facility] Address [address] [place] [address] Care Team Providers Care Election Judge Name Role Phone Pcp, No Primary Care [...] drink first t sourav in the morning (EYE-GRID INSPECTOR) to steady your nerves or to get [...] UKY-Depression Screening 1982 UKY-Infant/Child/Adol SDOH Screenings 1982 [id number] Vaccine (#1) 1987 UKY-Varicella Vaccines (1 of [...] 1/2 Differentiation (11/20/2024 2:11 PM EDT) Pathologist [facility] HIV 1 & 2 Antibody/Antigen Screen Non Reactive Non Reactive 11/20/2024 3:07 PM EDT [facility] Comment:Screening for HIV 1 & 2 antibodies, and P24 antigen is NONREACTIVE. No confirmatory testing is required. Blood Venous blood specimen / Unknown Venipuncture / Unknown 11/20/2024 2:11 PM EDT 11/20/2024 2:20 PM EDT Ash Boston MD LAB BLOOD ORDERABLES Final R esult Performing Organization Address City/[facility]/ZIP Co de Phone Number [facility] [address] [place] [address] * Hepatitis C Antibody - ED (11/20/2024 2:11 PM EDT) Pathologist [facility] Hepatitis C Antibody Negative Negative 11/20/2024 3:07 PM EDT [facility] Blood Venous blood specimen / Unknown Venipuncture / Unknown 11/20/2024 2:11 PM EDT 11/20/2024 2:20 PM EDT Ash Boston MD LAB BLOOD ORDERABLES Final R esult Performing Organization Address City/[facility]/ZIP Co de Phone Number [facility] [address] [place] [address] from Last 3 Months or Most Recently Relevant to Health Maintenance Insurance [facility] MEDICAID [facility] MEDICAID Advance Directives * Full Code (Latest Code Status on File) Date Activated Date Inactivated Comments 11/20/2024 4:51 PM 11/22/2024 3:56 PM Question Answer Comments I have reviewed the capacity from the link above and, if needed, have updated to appropriate status: Yes Care Teams Election Judge Relationship Specialty Start Date End Date Pcp, No [address] [place] [address] PCP - General Family Medicine 11/20/24
--- OUTSIDE RECORDS SUMMARY | 2025-04-24 10:17 | XMS_ITS | Clinical Summary ---
Author Organization [facility] Address [address] [place] [address] Phone Care Team Providers Care Medical Interpreter Name Role Phone Unavailable Primary Care Provider [...] - 19+ 3-dose series) 2001 COVID-19 Vaccine (2024-2 6 season) 2025 Influenza Vaccine (#1) 2025 Meningococcal B Vaccine Aged Out No l onger eligible based on patient's age to complete this topic Pneumococcal Vaccine 0-49 Aged Out No longer eligible based on patient's age to complete this topic
== END 2025-04-23 23:59 ==
LOC: LAB.DROPOF 04-24 10:09
PROVIDERS: PCP Family Medicine; Visit Provider Family Medicine
DX: D64.9 Anemia, unspecified (principal)
CPT/HCPCS: 82728; 83540; 83550; 85025